=== PATIENT | female | born 1970 | race Caucasian/White ===

== ENCOUNTER 2017-05-28 08:58 | Emergency (ER) | payer SELFPAY ==
[~2017-05-28] VITALS: Ht 165.1 cm; Wt 72.0 kg
[~2017-05-28 08:58] MED LIST: ALBU6.7H INH; CARB200 PO; IBUP800 PO; LEVE250 PO; LIDO5DIS35 TD; METO5TAB PO; NAPR-729 PO; OMEP40CA2 PO; PREG75 PO; SUMA6P SQ; VIST25CA PO
[2017-05-28 08:59] VITALS: BP 119/89; PULSE 86; RESP 18; TEMP 98.4; O2SAT 100
--- NOTE | 2017-05-28 09:34 | PD ---
HPI Chief Complaint: Musculoskeletal Complaint Time Seen by Provider: 09:25 Travel History International Travel<30 days: No Contact w/Intl Traveler<30days: No Traveled to known affect area: No History of Present Illness HPI The patient is a 46-year-old female who presents emergency department for muscle spasms and cramps. The patient is a 59 history of cramping in the calves bilaterally that extends into the toes and hands bilaterally. She also complains of muscle spasms to the right side of the neck and over the right trapezius. Symptoms have been ongoing for 6 days, she's been taking over-the- counter potassium supplementation without any alleviation of her symptoms. The patient has been drinking fluids without difficulty and denies any known history of electrolyte disorders or parathyroid disorders. She does not currently have a primary physician. Symptoms are mild to moderate without any alleviating or exacerbating factors. PFSH Past Medical History Asthma: Yes Bipolar Disorder: Yes Anxiety: Yes Cerebrovascular Accident: Yes (2007 NO DEFICITS) Diminished Hearing: No Gastrointestinal Disorders: Yes (COLITIS) GERD: Yes Gout: Yes Headaches: Yes Kidney Stones: No Migraines: Yes Seizures: Yes : 5 Para: 4 Miscarriage: 1 Ectopic : Yes Tubal Ligation: Yes (1999) Past Surgical History Cholecystectomy: Yes (2010) Hysterectomy: Yes Tonsillectomy: Yes Other Surgery: Yes (RIGHT HAND SURG, BLOOD CLOT REMOVED FROM RIGHT WRIST) Social History Alcohol Use: No (DENIES) Tobacco Use: No (quit 4 months ago ) Substance Use: No (DENIES) Allergies-Medications (Allergen,Severity, Reaction): Coded Allergies: Celexa (Verified Allergy, Severe, SUICIDAL THOUGHTS, 05/28/17) Haldol (Verified Allergy, Severe, JAW SWELLING, 05/28/17) Neurontin (Verified Allergy, Severe, HIVES, dystonic reaction, 05/28/17) Penicillin (Verified Allergy, Severe, Anaphylaxis, 05/28/17) Zoloft (Verified Adverse Reaction, Severe, SUIICIDAL THOUGHTS, 05/28/17) Zyprexa (Verified Adverse Reaction, Severe, SUIICIDAL THOUGHTS, 05/28/17) Reported Meds & Prescriptions Reported Meds & Active Scripts Active No Active Prescriptions or Reported Medications Review of Systems Except as stated in HPI: all other systems reviewed are Neg General / Constitutional: No: Fever HENT: No: Lightheadedness Cardiovascular: No: Chest Pain or Discomfort Respiratory: No: Shortness of Breath Gastrointestinal: No: Nausea, Vomiting Genitourinary: No: Decreased Urinary Output Musculoskeletal: Positive: Cramping Neurologic: Positive: Paresthesia, Sensory Disturbance Physical Exam Narrative GENERAL: Awake, alert, nontoxic-appearing 26-year-old female who appears her stated age and is in no acute respiratory distress. SKIN: Focused skin assessment warm/dry. HEAD: Atraumatic. Normocephalic. EYES: Pupils equal and round. No scleral icterus. No injection or drainage. ENT: No nasal bleeding or discharge. Mucous membranes pink and moist. NECK: Trachea midline. No JVD. Mild tenderness of the right paravertebral muscle in the right trapezius. CARDIOVASCULAR: Regular rate and rhythm. No murmur appreciated. RESPIRATORY: No accessory muscle use. Clear to auscultation. Breath sounds equal bilaterally. GASTROINTESTINAL: Abdomen soft, non-tender, nondistended. MUSCULOSKELETAL: No obvious deformities. No clubbing. No cyanosis. No edema. No obvious fasciculations. NEUROLOGICAL: Awake and alert. No obvious cranial nerve deficits. Motor grossly within normal limits. Normal speech. PSYCHIATRIC: Appropriate mood and affect; insight and judgment normal. Data Data Last Documented VS Vital Signs Date Time Temp Pulse Resp B/P Pulse Ox O2 Delivery O2 Flow Rate FiO2 05/28/17 11:12 68 16 128/68 99 05/28/17 08:59 98.4 Room Air Orders Complete Blood Count With Diff (05/28/17 09:31) Comprehensive Metabolic Panel (05/28/17 09:31) Creatine Kinase (Cpk) (05/28/17 09:31) Magnesium (Mg) (05/28/17 09:31) Sodium Chlor 0.9% 1000 Ml Inj (Ns 1000 M (05/28/17 09:45) Labs Laboratory Tests Test 05/28/17 09:40 White Blood Count 7.3 TH/MM3 Red Blood Count 5.11 MIL/MM3 Hemoglobin 13.0 GM/DL Hematocrit 41.1 % Mean Corpuscular Volume 80.4 FL Mean Corpuscular Hemoglobin 25.4 PG Mean Corpuscular Hemoglobin 31.7 % Concent Red Cell Distribution Width 15.7 % Platelet Count 197 TH/MM3 Mean Platelet Volume 9.4 FL Neutrophils (%) (Auto) 62.6 % Lymphocytes (%) (Auto) 29.6 % Monocytes (%) (Auto) 5.9 % Eosinophils (%) (Auto) 1.1 % Basophils (%) (Auto) 0.8 % Neutrophils # (Auto) 4.6 TH/MM3 Lymphocytes # (Auto) 2.2 TH/MM3 Monocytes # (Auto) 0.4 TH/MM3 Eosinophils # (Auto) 0.1 TH/MM3 Basophils # (Auto) 0.1 TH/MM3 CBC Comment DIFF FINAL Differential Comment Sodium Level 137 MEQ/L Potassium Level 4.0 MEQ/L Chloride Level 103 MEQ/L Carbon Dioxide Level 26.4 MEQ/L Anion Gap 8 MEQ/L Blood Urea Nitrogen 18 MG/DL Creatinine 0.87 MG/DL Estimat Glomerular Filtration 70 ML/MIN Rate Random Glucose 90 MG/DL Calcium Level 10.6 MG/DL Magnesium Level 1.9 MG/DL Total Bilirubin 0.3 MG/DL Aspartate Amino Transf 23 U/L (AST/SGOT) Alanine Aminotransferase 27 U/L (ALT/SGPT) Alkaline Phosphatase 115 U/L Total Creatine Kinase 119 U/L Total Protein 8.7 GM/DL Albumin 4.5 GM/DL MDM Medical Decision Making Medical Screen Exam Complete: Yes Emergency Medical Condition: Yes Medical Record Reviewed: Yes Interpretation(s) Laboratory Tests Test 05/28/17 09:40 White Blood Count 7.3 TH/MM3 Red Blood Count 5.11 MIL/MM3 Hemoglobin 13.0 GM/DL Hematocrit 41.1 % Mean Corpuscular Volume 80.4 FL Mean Corpuscular Hemoglobin 25.4 PG Mean Corpuscular Hemoglobin 31.7 % Concent Red Cell Distribution Width 15.7 % Platelet Count 197 TH/MM3 Mean Platelet Volume 9.4 FL Neutrophils (%) (Auto) 62.6 % Lymphocytes (%) (Auto) 29.6 % Monocytes (%) (Auto) 5.9 % Eosinophils (%) (Auto) 1.1 % Basophils (%) (Auto) 0.8 % Neutrophils # (Auto) 4.6 TH/MM3 Lymphocytes # (Auto) 2.2 TH/MM3 Monocytes # (Auto) 0.4 TH/MM3 Eosinophils # (Auto) 0.1 TH/MM3 Basophils # (Auto) 0.1 TH/MM3 CBC Comment DIFF FINAL Differential Comment Sodium Level 137 MEQ/L Potassium Level 4.0 MEQ/L Chloride Level 103 MEQ/L Carbon Dioxide Level 26.4 MEQ/L Anion Gap 8 MEQ/L Blood Urea Nitrogen 18 MG/DL Creatinine 0.87 MG/DL Estimat Glomerular Filtration 70 ML/MIN Rate Random Glucose 90 MG/DL Calcium Level 10.6 MG/DL Magnesium Level 1.9 MG/DL Total Bilirubin 0.3 MG/DL Aspartate Amino Transf 23 U/L (AST/SGOT) Alanine Aminotransferase 27 U/L (ALT/SGPT) Alkaline Phosphatase 115 U/L Total Creatine Kinase 119 U/L Total Protein 8.7 GM/DL Albumin 4.5 GM/DL Differential Diagnosis Differential diagnoses includes hypokalemia, hyperkalemia, hypocalcemia, hypercalcemia, hypomagnesemia, dehydration, restless leg syndrome. Narrative Course IV was established, labs are drawn and sent, and the patient was placed on cardiac telemetry monitoring and continuous pulse oximetry monitoring. The patient was administered 1 L of IV fluids. The patient's potassium is normal, calcium is mildly elevated at 10.6. The patient was reevaluated at 11:39 AM, her symptoms had improved. The patient be discharged home as I am as needed, advised to take it at night as needed for sleep, is advised to follow-up with a primary physician if cramps persist. Diagnosis Primary Impression: Muscle spasms of neck Additional Impression: Cramps, extremity Patient Instructions: General Instructions Additional Instructions: Medications as directed. Follow-up with your primary physician. Work excuse for today. No driving or drinking on Valium. Return if symptoms worsen or progress. Med/Other Pt SpecificInfo: Prescription(s) given Scripts Diazepam (Valium)5 Mg Tab5 Mg PO TID PRN (SPASM) #15 TAB Ref 0 Prov:Andreas Mora MD 05/28/17 Disposition: DISCHARGE HOME Condition: Stable Andreas Mora MD May 28, 2017 09:34
[2017-05-28] MEDS ORDERED: SODIUM CHLOR 0.9% 1000 ML INJ 1,000 ML IV ONE (09:45)
[2017-05-28 09:49] LABS: AUTOMATED NEUTROPHIL # 4.6 TH/MM3 (1.8-7.7); BASOPHIL # 0.1 TH/MM3 (0-0.2); BASOPHIL % 0.8 % (0.0-2.0); EOSINOPHIL # 0.1 TH/MM3 (0-0.4); EOSINOPHIL % 1.1 % (0.0-4.0); HEMATOCRIT 41.1 % (35.0-46.0); HEMO FLAGS DIFF FINAL; LYMPH % 29.6 % (9.0-44.0); LYMPHOCYTE # 2.2 TH/MM3 (1.0-4.8); MEAN CELL VOLUME 80.4 FL (80.0-100.0); MEAN CORPUSCULAR HEMOGLOBIN 25.4 PG (27.0-34.0); MEAN CORPUSCULAR HGB CONC 31.7 % (32.0-36.0); MONO % 5.9 % (0.0-8.0); NEUT % 62.6 % (16.0-70.0); PLATELET COUNT 197 TH/MM3 (150-450); RED BLOOD COUNT 5.11 MIL/MM3 (4.00-5.30); RED CELL DISTRIBUTION WIDTH 15.7 % (11.6-17.2); WHITE BLOOD COUNT 7.3 TH/MM3 (4.0-11.0)
[2017-05-28 10:04] LABS: AST (GOT) 23 U/L (15-37); BICARBONATE 26.4 MEQ/L (21.0-32.0); BLOOD UREA NITROGEN 18 MG/DL (7-18); GLOMERULAR FILTRATION RATE 70 ML/MIN (>89); MAGNESIUM 1.9 MG/DL (1.5-2.5)
[2017-05-28 10:05] LABS: ALT (GPT) 27 U/L (10-53)
[2017-05-28 10:50] LABS: ALKALINE PHOSPHATASE 115 U/L (45-117); ANION GAP 8 MEQ/L (5-15); CHLORIDE 103 MEQ/L (98-107); CREATINE KINASE 119 U/L (26-192); SODIUM (NA) 137 MEQ/L (136-145); TOTAL BILIRUBIN ADULT 0.3 MG/DL (0.2-1.0)
[2017-05-28 11:12] VITALS: BP 128/68; PULSE 68; RESP 16; O2SAT 99
[2017-05-28] MEDS ORDERED: DIAZ5 PO (11:41)
== END 2017-05-28 11:56 | disposition home or self-care (01) ==
LOC: NEPD 08:58
DX: M62.838 Other muscle spasm (principal)
CPT/HCPCS: 80053; 82550; 83735; 85025; 96360; 99284; J7030

== ENCOUNTER 2017-09-11 10:16 | Emergency (ER) | payer SELFPAY ==
[~2017-09-11] VITALS: Ht 165.1 cm; Wt 65.0 kg
[~2017-09-11 10:16] MED LIST changes: -ALBU6.7H INH; -CARB200 PO; +DIAZ5 PO; -IBUP800 PO; -LEVE250 PO; -LIDO5DIS35 TD; -METO5TAB PO; -NAPR-729 PO; -OMEP40CA2 PO; -PREG75 PO; -SUMA6P SQ; -VIST25CA PO
[2017-09-11 10:17] VITALS: BP 116/84; PULSE 92; RESP 20; TEMP 98.7; O2SAT 100
[2017-09-11] MEDS ORDERED: OMEP20TA PO (10:35)
--- NOTE | 2017-09-11 10:41 | PD ---
HPI Chief Complaint: Chest Pain Time Seen by Provider: 10:38 Travel History International Travel<30 days: No Contact w/Intl Traveler<30days: No Traveled to known affect area: No History of Present Illness HPI 47-year-old female patient with history of seizure disorder no longer on seizure medications, presents to the ER today for several days history of palpitations, substernal discomfort, shakiness. She denies a shortness of breath, nausea, vomiting, or any other symptoms. She denies any prior symptoms. She does not know of any exacerbating or relieving factors. Modifying Factors: None Associated Signs & Symptoms: Palpitations, chest discomfort, shakiness Risk Factors: None PFSH Past Medical History Asthma: Yes Bipolar Disorder: Yes Anxiety: Yes Cardiovascular Problems: Yes Cerebrovascular Accident: Yes (2007 NO DEFICITS) Diminished Hearing: No Gastrointestinal Disorders: Yes (COLITIS) GERD: Yes Gout: Yes Headaches: Yes Kidney Stones: No Psychiatric: Yes Migraines: Yes Seizures: Yes ?: Not : 5 Para: 4 Miscarriage: 1 Ectopic : Yes Tubal Ligation: Yes (1999) Past Surgical History Cholecystectomy: Yes (2010) Hysterectomy: Yes Tonsillectomy: Yes Other Surgery: Yes (RIGHT HAND SURG, BLOOD CLOT REMOVED FROM RIGHT WRIST) Social History Alcohol Use: No (DENIES) Tobacco Use: Yes (1 pack per week) Substance Use: No Allergies-Medications (Allergen,Severity, Reaction): Coded Allergies: citalopram (Unverified Allergy, Severe, SUICIDAL THOUGHTS, 09/11/17) gabapentin (Unverified Allergy, Severe, HIVES, dystonic reaction, 09/11/17 ) haloperidol (Unverified Allergy, Severe, JAW SWELLING, 09/11/17) penicillin G (Unverified Allergy, Severe, Anaphylaxis, 09/11/17) olanzapine (Unverified Adverse Reaction, Severe, SUIICIDAL THOUGHTS, 09/11) sertraline (Unverified Adverse Reaction, Severe, SUIICIDAL THOUGHTS, 09/11) Reported Meds & Prescriptions Reported Meds & Active Scripts Active Reported Omeprazole 20 Mg Tab 20 Mg PO BID Review of Systems Except as stated in HPI: all other systems reviewed are Neg Physical Exam Narrative GENERAL: Well-developed middle age white female patient who currently appears very anxious, in moderate distress. Awake and oriented 3. SKIN: Focused skin assessment warm/dry. HEAD: Atraumatic. Normocephalic. EYES: Pupils equal and round. No scleral icterus. No injection or drainage. ENT: No nasal bleeding or discharge. Mucous membranes pink and moist. NECK: Trachea midline. No JVD. CARDIOVASCULAR: Regular rate and rhythm. No murmur appreciated. RESPIRATORY: No accessory muscle use. Clear to auscultation. Breath sounds equal bilaterally. GASTROINTESTINAL: Abdomen soft, non-tender, nondistended. Hepatic and splenic margins not palpable. MUSCULOSKELETAL: No obvious deformities. No clubbing. No cyanosis. No edema. NEUROLOGICAL: Awake and alert. No obvious cranial nerve deficits. Motor grossly within normal limits. Normal speech. PSYCHIATRIC: Appropriate mood and affect; insight and judgment normal. Data Data Last Documented VS Vital Signs Date Time Temp Pulse Resp B/P (MAP) Pulse Ox O2 Delivery O2 Flow Rate FiO2 09/11/17 10:45 100 Room Air 09/11/17 10:45 77 18 09/11/17 10:17 98.7 Orders Orders Electrocardiogram (09/11/17 10:38) Basic Metabolic Panel (Bmp) (09/11/17 10:38) Ckmb (Isoenzyme) Profile (09/11/17 10:38) Complete Blood Count With Diff (09/11/17 10:38) Magnesium (Mg) (09/11/17 10:38) Prothrombin Time / Inr (Pt) (09/11/17 10:38) Act Partial Throm Time (Ptt) (09/11/17 10:38) Troponin I (09/11/17 10:38) Chest, Single Ap (09/11/17 10:38) Ecg Monitoring (09/11/17 10:38) Bilateral Bp Monitoring (09/11/17 10:38) Iv Access Insert/Monitor (09/11/17 10:38) Oximetry (09/11/17 10:38) Oxygen Administration (09/11/17 10:38) Sodium Chloride 0.9% Flush (Ns Flush) (09/11/17 10:45) Lorazepam Inj (Ativan Inj) (09/11/17 10:45) CKMB (09/11/17 10:40) CKMB% (09/11/17 10:40) Labs Laboratory Tests Test 09/11/17 10:40 White Blood Count 6.7 TH/MM3 Red Blood Count 4.54 MIL/MM3 Hemoglobin 12.2 GM/DL Hematocrit 36.7 % Mean Corpuscular Volume 80.8 FL Mean Corpuscular Hemoglobin 26.8 PG Mean Corpuscular Hemoglobin Concent 33.2 % Red Cell Distribution Width 15.7 % Platelet Count 206 TH/MM3 Mean Platelet Volume 9.5 FL Neutrophils (%) (Auto) 65.8 % Lymphocytes (%) (Auto) 28.0 % Monocytes (%) (Auto) 5.2 % Eosinophils (%) (Auto) 0.3 % Basophils (%) (Auto) 0.7 % Neutrophils # (Auto) 4.4 TH/MM3 Lymphocytes # (Auto) 1.9 TH/MM3 Monocytes # (Auto) 0.3 TH/MM3 Eosinophils # (Auto) 0.0 TH/MM3 Basophils # (Auto) 0.0 TH/MM3 CBC Comment DIFF FINAL Differential Comment Prothrombin Time 11.2 SEC Prothromb Time International Ratio 1.0 RATIO Activated Partial Thromboplast Time 24.9 SEC Blood Urea Nitrogen 17 MG/DL Creatinine 0.82 MG/DL Random Glucose 84 MG/DL Calcium Level 9.7 MG/DL Magnesium Level 1.8 MG/DL Sodium Level 141 MEQ/L Potassium Level 3.7 MEQ/L Chloride Level 107 MEQ/L Carbon Dioxide Level 24.6 MEQ/L Anion Gap 9 MEQ/L Estimat Glomerular Filtration Rate 74 ML/MIN Total Creatine Kinase 130 U/L Creatine Kinase MB 0.7 NG/ML Troponin I LESS THAN 0.02 NG/ML MDM Medical Decision Making Medical Screen Exam Complete: Yes Emergency Medical Condition: Yes Medical Record Reviewed: Yes Interpretation(s) Laboratory Tests Test 09/11/17 10:40 Mean Corpuscular Hemoglobin 26.8 PG (27.0-34.0) Estimat Glomerular Filtration Rate 74 ML/MIN (>89) Troponin I LESS THAN 0.02 NG/ML Last 24 hours Impressions Chest X-Ray 09/11/17 1038 Signed Impressions: Service Date/Time: Monday, September 11, 2017 10:51 - CONCLUSION: Minimal left lingular atelectasis. Lungs are otherwise clear. Kahlil Gu MD Differential Diagnosis Anxiety attack versus dysrhythmias versus ACS Narrative Course EKG did not show any signs of dysrhythmias. Lab work did not show any signs of significant metabolic issues. Vital signs are stable in the ER. It appears that she is having an anxiety attack. Patient was given Ativan in the ER. At this point, my plan would be to release the patient with follow-up to primary care doctor. Return for worsening in symptoms as necessary. The plan has been discussed with her and she states understanding. Diagnosis Primary Impression: Anxiety attack Additional Impression: Palpitations Referrals: [facility] Disposition: 01 DISCHARGE HOME Condition: Stable Troy Allred MD Sep 11, 2017 10:41
[2017-09-11 10:45] VITALS: BP 121/90; PULSE 77; RESP 18; O2SAT 100
[2017-09-11] MEDS ORDERED: LORazepam 2 MG/ML VIAL IV PUSH ONE (10:45)
[2017-09-11] MEDS ORDERED: SODIUM CHLORIDE 0.9% FLUSH 10 ML FLUSH IVF PRN (10:45)
--- NOTE | 2017-09-11 10:53 | RADRPT ---
EXAM DATE/TIME: 09/11/2017 10:51 [facility] COMPARISON: No previous studies available for comparison. INDICATIONS : Chest pain and tingling down left side arm. MEDICAL HISTORY : None. SURGICAL HISTORY : Hysterectomy. Cholecystectomy. ENCOUNTER: Initial ACUITY: 1 day PAIN SCORE: 5/10 LOCATION: Bilateral chest FINDINGS: A single view of the chest demonstrates the lungs to be symmetrically aerated without evidence of mas s, infiltrate or effusion. Minimal atelectasis laterally in the left lingular area. The cardiomedias tinal contours are unremarkable. Osseous structures are intact. CONCLUSION: Minimal left lingular atelectasis. Lungs are otherwise clear. Kahlil Gu MD on September 11, 2017 at 10:51 Board Certified Radiologist. This report was verified electronically.
[2017-09-11 11:09] LABS: AUTOMATED NEUTROPHIL # 4.4 TH/MM3 (1.8-7.7); BASOPHIL % 0.7 % (0.0-2.0); EOSINOPHIL % 0.3 % (0.0-4.0); HEMATOCRIT 36.7 % (35.0-46.0); HEMOGLOBIN 12.2 GM/DL (11.6-15.3); LYMPHOCYTE # 1.9 TH/MM3 (1.0-4.8); MEAN CELL VOLUME 80.8 FL (80.0-100.0); MEAN CORPUSCULAR HEMOGLOBIN 26.8 PG (27.0-34.0); MEAN CORPUSCULAR HGB CONC 33.2 % (32.0-36.0); MEAN PLATELET VOLUME 9.5 FL (7.0-11.0); MONO % 5.2 % (0.0-8.0); MONOCYTE # 0.3 TH/MM3 (0-0.9); NEUT % 65.8 % (16.0-70.0); PLATELET COUNT 206 TH/MM3 (150-450); RED BLOOD COUNT 4.54 MIL/MM3 (4.00-5.30); RED CELL DISTRIBUTION WIDTH 15.7 % (11.6-17.2); WHITE BLOOD COUNT 6.7 TH/MM3 (4.0-11.0)
[2017-09-11 11:20] LABS: PROTHROMBIN TIME - PATIENT 11.2 SEC (9.8-11.6)
[2017-09-11 11:41] LABS: BICARBONATE 24.6 MEQ/L (21.0-32.0); BLOOD UREA NITROGEN 17 MG/DL (7-18); CALCIUM 9.7 MG/DL (8.5-10.1); CHLORIDE 107 MEQ/L (98-107); CREATININE 0.82 MG/DL (0.50-1.00); GLOMERULAR FILTRATION RATE 74 ML/MIN (>89); GLUCOSE,RANDOM 84 MG/DL (74-106); MAGNESIUM 1.8 MG/DL (1.5-2.5); SODIUM (NA) 141 MEQ/L (136-145)
[2017-09-11 11:45] LABS: TROPONIN I LESS THAN 0.02 NG/ML (0.02-0.05)
[2017-09-11 12:35] VITALS: BP 102/69
--- NOTE | 2017-09-12 15:01 | EKG ---
Date Performed: 09/11/2017 Time Performed: 10:34:50 PTAGE: 47 years EKG: Sinus rhythm NORMAL ECG INTERPRETATION BASED ON A DEFAULT AGE OF 39 YEARS PREVIOUS TRACING : 12/29/2013 11.34 Compared to prior tracing no significant change DOCTOR: America Ruggiero Interpretating Date/Time 09/12/2017 14:54:38
== END 2017-09-11 12:35 | disposition home or self-care (01) ==
LOC: NEPC 10:16
DX: F41.9 Anxiety disorder, unspecified (principal); R00.2 Palpitations; J98.11 Atelectasis; G40.909 Epilepsy, unspecified, not intractable, without status epilepticus; J45.909 Unspecified asthma, uncomplicated; F31.9 Bipolar disorder, unspecified; K21.9 Gastro-esophageal reflux disease without esophagitis; M10.9 Gout, unspecified; Z86.73 Personal history of transient ischemic attack (TIA), and cerebral infarction without residual deficits
CPT/HCPCS: 71010; 80048; 82550; 82552; 83735; 84484; 85025; 85610; 85730; 93005; 96374; 99285; J2060

== ENCOUNTER 2017-09-18 09:18 | Observation (INO) | payer SELFPAY ==
[~2017-09-18] VITALS: Ht 165.1 cm; Wt 65.0 kg
[2017-09-18] VITALS (10 sets, daily range): BP systolic 106–123; BP diastolic 59–74; PULSE 55–73; RESP 16–19; TEMP 98–98.7; O2SAT 98–100
[~2017-09-18 09:18] MED LIST changes: -DIAZ5 PO; +OMEP20TA PO
--- NOTE | 2017-09-18 09:59 | PD ---
HPI Chief Complaint: Chest Pain Time Seen by Provider: 09:50 Travel History International Travel<30 days: No Contact w/Intl Traveler<30days: No Traveled to known affect area: No History of Present Illness HPI This is a 47-year-old female with history of seizures, hyperlipidemia, tobacco use presents for evaluation of chest pain. Symptoms started 1.5 weeks ago. She describes a sharp substernal chest pain that radiates in the back and is worse with movement and deep inspiration. She was seen in September 11 for evaluation of this pain. Symptoms have worsened since then which prompted evaluation. Denies shortness of breath, nausea or vomiting, recent travel, recent surgery, abdominal pain, cough or congestion. She has no other complaints at this time. PFSH Past Medical History Asthma: Yes Bipolar Disorder: Yes Anxiety: Yes Cardiovascular Problems: Yes Cerebrovascular Accident: Yes Diminished Hearing: No Gastrointestinal Disorders: Yes (COLITIS) GERD: Yes Gout: Yes Headaches: Yes Kidney Stones: No Psychiatric: Yes Migraines: Yes Seizures: Yes ?: Not : 5 Para: 4 Miscarriage: 1 Ectopic : Yes Tubal Ligation: Yes (1999) Past Surgical History Cholecystectomy: Yes (2010) Hysterectomy: Yes Tonsillectomy: Yes Other Surgery: Yes (RIGHT HAND SURG, BLOOD CLOT REMOVED FROM RIGHT WRIST) Social History Alcohol Use: No (DENIES) Tobacco Use: Yes (1 pack per week) Substance Use: No Allergies-Medications (Allergen,Severity, Reaction): Coded Allergies: citalopram (Unverified Allergy, Severe, SUICIDAL THOUGHTS, 09/18/17) gabapentin (Unverified Allergy, Severe, HIVES, dystonic reaction, 09/18/17) haloperidol (Unverified Allergy, Severe, JAW SWELLING, 09/18/17) penicillin G (Unverified Allergy, Severe, Anaphylaxis, 09/18/17) olanzapine (Unverified Adverse Reaction, Severe, SUIICIDAL THOUGHTS, ) sertraline (Unverified Adverse Reaction, Severe, SUIICIDAL THOUGHTS, ) Reported Meds & Prescriptions Reported Meds & Active Scripts Active Reported Omeprazole 20 Mg Tab 20 Mg PO BID Review of Systems Except as stated in HPI: all other systems reviewed are Neg Physical Exam Narrative GENERAL: This is a well-developed well-nourished female who appears anxious on initial examination. SKIN: Warm and dry. HEAD: Atraumatic. Normocephalic. EYES: Pupils equal and round. No scleral icterus. No injection or drainage. ENT: No nasal bleeding or discharge. Mucous membranes pink and moist. NECK: Trachea midline. No JVD. CARDIOVASCULAR: Regular rate and rhythm. No murmur appreciated. RESPIRATORY: No accessory muscle use. Clear to auscultation. Breath sounds equal bilaterally. GASTROINTESTINAL: Abdomen soft, non-tender, nondistended. Hepatic and splenic margins not palpable. MUSCULOSKELETAL: No obvious deformities. No clubbing. No cyanosis. No edema. Slight tenderness to palpation to the mid chest region. NEUROLOGICAL: Awake and alert. No obvious cranial nerve deficits. Motor grossly within normal limits. Normal speech. PSYCHIATRIC: Appropriate mood and affect; insight and judgment normal. Data Data Last Documented VS Vital Signs Date Time Temp Pulse Resp B/P (MAP) Pulse Ox O2 Delivery O2 Flow Rate FiO2 09/18/17 12:30 64 18 123/74 (90) 98 Room Air 09/18/17 09:19 98.7 Orders Orders Electrocardiogram (09/18/17 09:52) Basic Metabolic Panel (Bmp) (09/18/17 09:52) Ckmb (Isoenzyme) Profile (09/18/17 09:52) Complete Blood Count With Diff (09/18/17 09:52) D-Dimer (09/18/17 09:52) Magnesium (Mg) (09/18/17 09:52) Prothrombin Time / Inr (Pt) (09/18/17 09:52) Act Partial Throm Time (Ptt) (09/18/17 09:52) Troponin I (09/18/17 09:52) Chest, Single Ap (09/18/17 09:52) Ecg Monitoring (09/18/17 09:52) Bilateral Bp Monitoring (09/18/17 09:52) Iv Access Insert/Monitor (09/18/17 09:52) Oximetry (09/18/17 09:52) Oxygen Administration (09/18/17 09:52) Aspirin Chew (Aspirin Chew) (09/18/17 10:00) Morphine Inj (Morphine Inj) (09/18/17 10:00) Sodium Chloride 0.9% Flush (Ns Flush) (09/18/17 10:00) Ondansetron Inj (Zofran Inj) (09/18/17 10:45) Nitroglycerin Sl (Nitrostat Sl) (09/18/17 11:30) CKMB (09/18/17 10:30) CKMB% (09/18/17 10:30) Ct Pulmonary Angiogram (09/18/17 11:51) Vascular Access Team Consult/P PRN (09/18/17 12:33) Vascular Poc Ultrasound (09/18/17 ) Iohexol 350 Inj (Omnipaque 350 Inj) (09/18/17 14:03) Admit Order (Ed Use Only) (09/18/17 14:22) Labs Laboratory Tests Test 09/18/17 10:30 White Blood Count 6.9 TH/MM3 Red Blood Count 4.37 MIL/MM3 Hemoglobin 12.0 GM/DL Hematocrit 35.6 % Mean Corpuscular Volume 81.5 FL Mean Corpuscular Hemoglobin 27.4 PG Mean Corpuscular Hemoglobin Concent 33.6 % Red Cell Distribution Width 16.0 % Platelet Count 179 TH/MM3 Mean Platelet Volume 9.9 FL Neutrophils (%) (Auto) 59.0 % Lymphocytes (%) (Auto) 31.5 % Monocytes (%) (Auto) 7.3 % Eosinophils (%) (Auto) 1.2 % Basophils (%) (Auto) 1.0 % Neutrophils # (Auto) 4.1 TH/MM3 Lymphocytes # (Auto) 2.2 TH/MM3 Monocytes # (Auto) 0.5 TH/MM3 Eosinophils # (Auto) 0.1 TH/MM3 Basophils # (Auto) 0.1 TH/MM3 CBC Comment DIFF FINAL Differential Comment Prothrombin Time 11.2 SEC Prothromb Time International Ratio 1.0 RATIO Activated Partial Thromboplast Time 26.7 SEC D-Dimer Quantitative (PE/DVT) 0.63 MG/L FEU Blood Urea Nitrogen 14 MG/DL Creatinine 0.75 MG/DL Random Glucose 92 MG/DL Calcium Level 9.9 MG/DL Magnesium Level 1.9 MG/DL Sodium Level 138 MEQ/L Potassium Level 4.1 MEQ/L Chloride Level 106 MEQ/L Carbon Dioxide Level 23.9 MEQ/L Anion Gap 8 MEQ/L Estimat Glomerular Filtration Rate 82 ML/MIN Total Creatine Kinase 109 U/L Creatine Kinase MB 0.6 NG/ML Troponin I LESS THAN 0.02 NG/ML MDM Medical Decision Making Medical Screen Exam Complete: Yes Emergency Medical Condition: Yes Medical Record Reviewed: Yes Interpretation(s) EKG reveals sinus rhythm Differential Diagnosis Costochondritis, pericarditis, myocarditis, pleurisy, pneumothorax, hemothorax, pericardial effusion, aortic dissection, pulmonary embolism, acute coronary syndrome Narrative Course The patient was placed on ECG monitoring and pulse oximetry. A 12-lead EKG was obtained. The patient was given aspirin, morphine, nitroglycerin. Plan is for lab work, chest x-ray. The patient's lab work has been reviewed. Her d-dimer is mildly elevated and therefore a CT pulmonary angiogram has been ordered. CT pulmonary angiogram reveals CONCLUSION: 1. No evidence for pulmonary embolism. 2. No evidence for infiltrate. 3. Enlargement main pulmonary trunk which can be seen with pulmonary hypertension. At this point in time the plan is to admit the patient into the chest pain center for serial cardiac enzymes and rule out purposes. She is agreeable. Diagnosis Primary Impression: Chest pain Qualified Codes: R07.9 - Chest pain, unspecified Admitting Information Admitting Physician Requests: Terence Fink Sep 18, 2017 09:59
[2017-09-18] MEDS ORDERED: MORPHINE SULFATE 4 MG/ML INJ IV PUSH ONE ×2 (10:00)
[2017-09-18] MEDS ORDERED: ASPIRIN 81 MG CHEW TAB PO ONE ×2 (10:00)
[2017-09-18] MEDS ORDERED: SODIUM CHLORIDE 0.9% FLUSH 10 ML FLUSH IVF PRN ×2 (10:00)
--- NOTE | 2017-09-18 10:28 | RADRPT ---
EXAM DATE/TIME: 09/18/2017 09:53 [facility] COMPARISON: CHEST SINGLE AP, September 11, 2017, 10:51. INDICATIONS : Chest pains. MEDICAL HISTORY : None. SURGICAL HISTORY : Hysterectomy. Cholecystectomy ENCOUNTER: [facility] ACUITY: 1 week PAIN SCORE: 9/10 LOCATION: Bilateral chest FINDINGS: A single view of the chest demonstrates the lungs to be symmetrically aerated without evidence of mas s, infiltrate or effusion. The cardiomediastinal contours are unremarkable. Osseous structures are intact. CONCLUSION: Negative for an acute process. Diego Richter MD FACR on September 18, 2017 at 10:25 Board Certified Radiologist. This report was verified electronically.
[2017-09-18] MEDS ORDERED: ONDANSETRON HCL 4 MG/2 ML VIAL IVP ONE ×2 (10:45)
[2017-09-18 11:38] LABS: AUTOMATED NEUTROPHIL # 4.1 TH/MM3 (1.8-7.7); BASOPHIL # 0.1 TH/MM3 (0-0.2); EOSINOPHIL # 0.1 TH/MM3 (0-0.4); EOSINOPHIL % 1.2 % (0.0-4.0); HEMATOCRIT 35.6 % (35.0-46.0); LYMPH % 31.5 % (9.0-44.0); LYMPHOCYTE # 2.2 TH/MM3 (1.0-4.8); MEAN CELL VOLUME 81.5 FL (80.0-100.0); MEAN CORPUSCULAR HEMOGLOBIN 27.4 PG (27.0-34.0); MEAN CORPUSCULAR HGB CONC 33.6 % (32.0-36.0); MEAN PLATELET VOLUME 9.9 FL (7.0-11.0); MONO % 7.3 % (0.0-8.0); MONOCYTE # 0.5 TH/MM3 (0-0.9); PLATELET COUNT 179 TH/MM3 (150-450); RED BLOOD COUNT 4.37 MIL/MM3 (4.00-5.30); WHITE BLOOD COUNT 6.9 TH/MM3 (4.0-11.0)
[2017-09-18 11:44] LABS: TROPONIN I LESS THAN 0.02 NG/ML (0.02-0.05)
[2017-09-18 11:47] LABS: BICARBONATE 23.9 MEQ/L (21.0-32.0); BLOOD UREA NITROGEN 14 MG/DL (7-18); CALCIUM 9.9 MG/DL (8.5-10.1); CHLORIDE 106 MEQ/L (98-107); CREATININE 0.75 MG/DL (0.50-1.00); GLOMERULAR FILTRATION RATE 82 ML/MIN (>89); GLUCOSE,RANDOM 92 MG/DL (74-106); MAGNESIUM 1.9 MG/DL (1.5-2.5); SODIUM (NA) 138 MEQ/L (136-145)
[2017-09-18 11:49] LABS: PROTHROMBIN TIME - PATIENT 11.2 SEC (9.8-11.6)
[2017-09-18 11:50] LABS: D-DIMER 0.63 MG/L FEU (0.00-0.50)
[2017-09-18] MEDS: NITROGLYCERIN 0.4 MG SL 25 TABS/BTL SL SCH ×4 (12:02→12:10)
[2017-09-18] MEDS ORDERED: IOHEXOL 350 MG/ML 10 ML VIAL (for RAD DIAG) IVCONTRAST ONE ×2 (14:03)
--- NOTE | 2017-09-18 14:09 | RADRPT ---
EXAM DATE/TIME: 09/18/2017 13:48 [facility] COMPARISON: No previous studies available for comparison. INDICATIONS : Chest pain for 1 week IV CONTRAST: 70 cc Omnipaque 350 (iohexol) IV RADIATION DOSE: 8.37 CTDIvol (mGy) MEDICAL HISTORY : Seizures. Cardiovascular disease SURGICAL HISTORY : Hysterectomy. Cholecystectomy. ENCOUNTER: Initial ACUITY: 1 week PAIN SCALE: 8/10 LOCATION: chest TECHNIQUE: Volumetric scanning of the chest was performed using a pulmonary embolism protocol MIP images were re constructed. Using automated exposure control and adjustment of the mA and/or kV according to patien t size, radiation dose was kept as low as reasonably achievable to obtain optimal diagnostic quality images. DICOM format image data is available electronically for review and comparison. Follow-up recommendations for detected pulmonary nodules are based at a minimum on nodule size and pa tient risk factors according to Fleischner Society Guidelines. FINDINGS: PULMONARY ARTERIES: No filling defects are seen in the pulmonary arteries through the segmental level. LUNGS: There is no consolidation or pneumothorax . No concerning pulmonary nodule is visualized. PLEURAE: There is no pleural thickening or pleural effusion. MEDIASTINUM: There is good visualization of the great vessels of the middle mediastinum. No evidence of mediastin al or hilar adenopathy/mass. Soft tissue density anterior mediastinum likely residual clivus. Pulmona ry trunk is prominent. MUSCULOSKELETAL: Within normal limits for patient age. MISCELLANEOUS: The visualized upper abdominal organs demonstrate no acute abnormality. CONCLUSION: 1. No evidence for pulmonary embolism. 2. No evidence for infiltrate. 3. Enlargement main pulmonary trunk which can be seen with pulmonary hypertension. Micha Martino MD on September 18, 2017 at 14:06 Board Certified Radiologist. This report was verified electronically.
[2017-09-18] MEDS ORDERED: NITROGLYCERIN 0.4 MG SL 25 TABS/BTL SL PRN ×2 (15:00)
[2017-09-18] MEDS ORDERED: ACETAMINOPHEN 500 MG CPLT PO PRN ×2 (15:00)
[2017-09-18 15:53] LABS: TROPONIN I LESS THAN 0.02 NG/ML (0.02-0.05)
--- NOTE | 2017-09-18 16:58 | HHI.HP ---
HPI Primary Care Physician No Primary Care Physician Chief Complaint Chest pain History of Present Illness 47-year-old female with history of GERD and seizure disorder presents to emergency room for further evaluation of chest pain. Onset 11 days ago. Location substernal characterized as a stabbing pain. Radiation to middle of back. Severity waxes and wanes in intensity, never completely gone. Duration has been constant. Associated symptoms occasionally included shortness of breath. Hurts to take a deep breath and twisting left or right makes pain worse. Particular movements of the neck worsens back pain. Laying flat does not provoke pain. No known precipitating or relieving factors. Took Motrin and Aleve without relief. Denies similar pain in the past. No known injury or recent trauma. Seen in [facility] 8 days ago for similar symptoms. States been told pain was related to anxiety and was discharged. Review of Systems General: No fatigue,weakness, fever, chills, or recent illness. Has been in her general state of health. Currently does not have a PCP. Will have insurance and 45 days and reestablish with a primary care provider at that time. HEENT: No MANLEY CV: Continues to have chest pain as stated above. RESP: No SOB, cough, wheeze, recent upper respiratory infection, or sputum production. No history of asthma. GI: No nausea, vomiting, or bowel changes. Reports external hemorrhoids which occasionally bleed, unchanged and stable. No change in appetite, no unintentional weight gain or weight loss. : No dysuria, urgency, or frequency EXT: Occasional bilateral lower leg dependent edema, no paraesthesias MS: As stated above. No Change in ROM or known injury. NEURO: No seizure disorder since childhood. Last seizure 4 years ago. Has been off seizure medication for "many years." No difficulty with balance, LOC, motor/sensory deficits PSYCH: No anxiety, depression, or situational stress. SKIN: No rashes, no concerning lesions Past Family Social History Allergies: Coded Allergies: citalopram (Unverified Allergy, Severe, SUICIDAL THOUGHTS, 09/18/17) gabapentin (Unverified Allergy, Severe, HIVES, dystonic reaction, 09/18/17) haloperidol (Unverified Allergy, Severe, JAW SWELLING, 09/18/17) penicillin G (Unverified Allergy, Severe, Anaphylaxis, 09/18/17) olanzapine (Unverified Adverse Reaction, Severe, SUIICIDAL THOUGHTS, ) sertraline (Unverified Adverse Reaction, Severe, SUIICIDAL THOUGHTS, ) Past Medical History GERD, seizure disorder (dx as a child) migraines Past Surgical History tubal ligation, hysterectomy, cholecystectomy, tonsillectomy, right hand fixation Reported Medications Reported Meds & Active Scripts Active Reported Omeprazole 20 Mg Tab 20 Mg PO BID Active Ordered Medications Current Medications Medications (Trade) Dose Ordered Sig/Berna Route Start Time Stop Time Status Last Admin (NS Flush) 2 ml UNSCH PRN IVF 09/18/17 10:00 (NS Flush) 2 ml BID IV FLUSH 09/18/17 21:00 (Tylenol) 500 mg Q4H PRN PO 09/18/17 15:00 (Zofran Inj) 4 mg Q6H PRN IV PUSH 09/18/17 15:00 (Nitrostat Sl) 0.4 mg Q5M PRN SL 09/18/17 15:00 (Aspirin) 325 mg DAILY PO 09/19/17 09:00 Family History Mother had heart attack in her mid 40s. Father seizure complications in his 40s. Social History No known hypertension, diabetes, or hyperlipidemia. Current smoker stating 1 pack every 5 days. Rare alcohol use. Denies any illegal drug use. Endorses a active lifestyle. Works as a garcía installing kitchen cabinets. Past cardiac testing None Physical Exam Vital Signs Vital Signs Date Time Temp Pulse Resp B/P (MAP) Pulse Ox O2 Delivery O2 Flow Rate FiO2 09/18/17 16:03 98.2 57 18 108/60 (76) 98 09/18/17 14:58 09/18/17 14:30 67 17 121/74 (90) 98 Room Air 09/18/17 12:30 64 18 123/74 (90) 98 Room Air 09/18/17 10:37 64 19 115/64 (81) 99 Room Air 09/18/17 10:37 Room Air 09/18/17 10:36 100 Room Air 09/18/17 10:36 119/59 (79) 115/64 (81) 09/18/17 09:19 98.7 73 16 120/71 (87) 98 Room Air Physical Exam GENERAL: Alert WN, WD, NAD, mild anxious, pleasant female HEAD: NC, AT NECK: Supple, no masses, trachea midline CV: RRR, without murmur, rub, gallop, no JVD, S1-S2 no S3-S4. RESP: Clear lungs throughout bilateral, no crackles, wheeze, rhonchi, symmetrical chest rise, nonlabored, able to speak in full sentences ABD: Soft, NT, ND, no masses, positive bowel tones EXT: Pulses +24, no dependent edema MS: Normal tone 4 extremities, nontender, no obvious deformities, full range of motion NEURO: CN II through CN XII grossly intact, motor strength 5/5, PSYCH: A+O 3, pleasant affect, appropriate speech, mood, and insight and judgment SKIN: Normal turgor, normal texture, no lesions, no rashes, brisk cap refill, even hair distribution, multiple tattoos Laboratory Laboratory Tests Test 09/18/17 10:30 09/18/17 15:20 White Blood Count 6.9 Red Blood Count 4.37 Hemoglobin 12.0 Hematocrit 35.6 Mean Corpuscular Volume 81.5 Mean Corpuscular Hemoglobin 27.4 Mean Corpuscular Hemoglobin Concent 33.6 Red Cell Distribution Width 16.0 Platelet Count 179 Mean Platelet Volume 9.9 Neutrophils (%) (Auto) 59.0 Lymphocytes (%) (Auto) 31.5 Monocytes (%) (Auto) 7.3 Eosinophils (%) (Auto) 1.2 Basophils (%) (Auto) 1.0 Neutrophils # (Auto) 4.1 Lymphocytes # (Auto) 2.2 Monocytes # (Auto) 0.5 Eosinophils # (Auto) 0.1 Basophils # (Auto) 0.1 CBC Comment DIFF FINAL Differential Comment Prothrombin Time 11.2 Prothromb Time International Ratio 1.0 Activated Partial Thromboplast Time 26.7 D-Dimer Quantitative (PE/DVT) 0.63 Blood Urea Nitrogen 14 Creatinine 0.75 Random Glucose 92 Calcium Level 9.9 Magnesium Level 1.9 Sodium Level 138 Potassium Level 4.1 Chloride Level 106 Carbon Dioxide Level 23.9 Anion Gap 8 Estimat Glomerular Filtration Rate 82 Total Creatine Kinase 109 98 Creatine Kinase MB 0.6 Troponin I LESS THAN 0.02 LESS THAN 0.02 Result Diagram: 09/18/17 1030 09/18/17 1030 Imaging Last Impressions Chest X-Ray 09/18/17 0952 Signed Impressions: Service Date/Time: Monday, September 18, 2017 09:53 - CONCLUSION: Negative for an acute process. Diego Richter MD FACR Course EKG NSR, normal axis, no st t segment changes Caprini VTE Risk Assessment Caprini VTE Risk Assessment: No/Low Risk (score <= 1) Caprini Risk Assessment Model Point Value = 1 Point Value = 2 Point Value = 3 Point Value = 5 Age 41-60 Minor surgery BMI > 25 kg/m2 Swollen legs Varicose veins or History of unexplained or recurrent spontaneous Oral contraceptives or hormone replacement Sepsis (< 1 month) Serious lung disease, including pneumonia (< 1 month) Abnormal pulmonary function Acute myocardial infarction Congestive heart failure (< 1 month) History of inflammatory bowel disease Medical patient at bed rest Age 61-74 Arthroscopic surgery Major open surgery (> 45 min) Laparoscopic surgery (> 45 min) Malignancy Confined to bed (> 72 hours) Immobilizing plaster cast Central venous access Age >= 75 History of VTE Family history of VTE Factor V Leiden Prothrombin [id number] Lupus anticoagulant Anticardiolipin antibodies Elevated serum homocysteine Heparin-induced thrombocytopenia Other congenital or acquired thrombophilia Stroke (< 1 month) Elective arthroplasty Hip, pelvis, or leg fracture Acute spinal cord injury (< 1 month) Prophylaxis Regimen Total Risk Factor Score Risk Level Prophylaxis Regimen 0-1 Low Early ambulation 2 Moderate Order ONE of the following: *Sequential Compression Device (SCD) *Heparin 5000 units SQ BID 3-4 Higher Order ONE of the following medications: *Heparin 5000 units SQ TID *Enoxaparin/Lovenox 40 mg SQ daily (WT < 150 kg, CrCl > 30 mL/min) *Enoxaparin/Lovenox 30 mg SQ daily (WT < 150 kg, CrCl > 10-29 mL/min) *Enoxaparin/Lovenox 30 mg SQ BID (WT < 150 kg, CrCl > 30 mL/min) AND/OR *Sequential Compression Device (SCD) 5 or more Highest Order ONE of the following medications: *Heparin 5000 units SQ TID (Preferred with Epidurals) *Enoxaparin/Lovenox 40 mg SQ daily (WT < 150 kg, CrCl > 30 mL/min) *Enoxaparin/Lovenox 30 mg SQ daily (WT < 150 kg, CrCl > 10-29 mL/min) *Enoxaparin/Lovenox 30 mg SQ BID (WT < 150 kg, CrCl > 30 mL/min) AND *Sequential Compression Device (SCD) Assessment and Plan Assessment and Plan #1 Atypical chest pain-admitted to chest pain center. Rule out with 3 sets of EKG and cardiac enzymes. Will be seen and evaluated by Dr. Jaxson Goldsmith in [place] Reassurance provided discomfort appears to be musculoskeletal in nature. Discussed possible stress testing which will be determined by the magnetic resonance imaging coordinator tomorrow. Agreeable to pain of care. #2 Musculoskeletal pain-Toradol 30mg IV x1 dose #3 Tobacco use-strongly encouraged and stressed importance of tobacco cessation. Instructed to quit smoking. Lola Carvajal Sep 18, 2017 16:58
[2017-09-18] MEDS ORDERED: KETOROLAC TROMETHAMINE 30 MG/ML (IVP) VIAL IV PUSH ONE ×2 (17:45)
[2017-09-18 17:48] LABS: TROPONIN I LESS THAN 0.02 NG/ML (0.02-0.05)
[2017-09-18] MEDS: SODIUM CHLORIDE 0.9% FLUSH 10 ML FLUSH IV FLUSH SCH ×2 (21:31)
[2017-09-18] MEDS: KETOROLAC TROMETHAMINE 30 MG/ML (IVP) VIAL IV PUSH PRN ×2 (23:09)
[2017-09-18] MEDS: ONDANSETRON HCL 4 MG/2 ML VIAL IV PUSH PRN ×2 (23:10)
[2017-09-19 00:40] VITALS: PULSE 60
[2017-09-19 03:30] VITALS: BP 118/69; PULSE 59; RESP 16; TEMP 98.8; O2SAT 100
[2017-09-19 04:15] VITALS: PULSE 81
[2017-09-19] MEDS: KETOROLAC TROMETHAMINE 30 MG/ML (IVP) VIAL IV PUSH PRN ×2 (04:33)
[2017-09-19] MEDS: ONDANSETRON HCL 4 MG/2 ML VIAL IV PUSH PRN ×2 (04:33)
[2017-09-19 08:05] VITALS: BP 123/68; PULSE 56; RESP 20; TEMP 98.3; O2SAT 98
--- NOTE | 2017-09-19 08:42 | RADRPT ---
EXAM DATE/TIME: 09/19/2017 08:18 [facility] COMPARISON: No previous studies available for comparison. INDICATIONS : Back pain. RADIATION DOSE: 33.58 CTDIvol (mGy) ; Combined studies - Thoracic Spine/Lumbar Spine MEDICAL HISTORY : Gastroesophageal reflux disease. Seizures. Colitis. SURGICAL HISTORY : Tonsillectomy. Cholecystectomy.Hysterectomy. ENCOUNTER: Initial ACUITY: 1 week PAIN SCALE: 5/10 LOCATION: back. TECHNIQUE: Volumetric scanning of the thoracic spine was performed. Multiplanar reconstructions in the sagittal , coronal and oblique axial planes were performed. Using automated exposure control and adjustment o f the mA and/or kV according to patient size, radiation dose was kept as low as reasonably achievable to obtain optimal diagnostic quality images. DICOM format image data is available electronically f or review and comparison. FINDINGS: The vertebral bodies of the thoracic spine are in normal alignment without evidence of subluxation. M ild degenerative changes are noted throughout the thoracic spine. Vertebral body height is maintained . No fractures are seen. T1-T2: Normal. T2-T3: The thecal sac has a normal diameter. No evidence of disc bulge or protrusion. T3-T4: The thecal sac has a normal diameter. No evidence of disc bulge or protrusion. T4-T5: The thecal sac has a normal diameter. No evidence of disc bulge or protrusion. T5-T6: The thecal sac has a normal diameter. No evidence of disc bulge or protrusion. T6-T7: The thecal sac has a normal diameter. No evidence of disc bulge or protrusion. T7-T8: The thecal sac has a normal diameter. No evidence of disc bulge or protrusion. T8-T9: The thecal sac has a normal diameter. No evidence of disc bulge or protrusion. T9-T10: The thecal sac has a normal diameter. No evidence of disc bulge or protrusion. T10-T11: The thecal sac has a normal diameter. No evidence of disc bulge or protrusion. T11-T12: The thecal sac has a normal diameter. No evidence of disc bulge or protrusion. T12-L1: The thecal sac has a normal diameter. No evidence of disc bulge or protrusion. CONCLUSION: 1. Mild degenerative changes throughout the thoracic spine. 2. No acute compression fracture or subluxation. Sajan Beasley MD on September 19, 2017 at 8:37 Board Certified Radiologist. This report was verified electronically.
--- NOTE | 2017-09-19 08:53 | RADRPT ---
EXAM DATE/TIME: 09/19/2017 08:18 [facility] COMPARISON: No previous studies available for comparison. INDICATIONS : Lower back pain. RADIATION DOSE: 33.58 CTDIvol (mGy) ; Combined studies - Thoracic Spine/Lumbar Spine MEDICAL HISTORY : Seizures. Gastroesophageal reflux disease. Colitis SURGICAL HISTORY : Cholecystectomy. Hysterectomy.Tonsillectomy. ENCOUNTER: Initial ACUITY: 1 week PAIN SCALE: 6/10 LOCATION: lower back. TECHNIQUE: Volumetric scanning of the lumbar spine was performed. Multiplanar reconstructions in the sagittal, coronal and oblique axial planes were performed. Using automated exposure control and adjustment of the mA and/or kV according to patient size, radiation dose was kept as low as reasonably achievable t o obtain optimal diagnostic quality images. DICOM format image data is available electronically for review and comparison. FINDINGS: The sagittal images demonstrate tiny foci of high density within the right side of the thecal sac at the inferior aspect of the L1 level as well as within the midline posteriorly at the L4-5 level. Thes e foci may represent areas of residual contrast if the patient has had previous myelogram procedure. Clinical correlation is recommended. If no previous contrast has been injected, tiny areas of calcifi cation within the thecal sac should be considered. There is no acute compression fracture or spondylo listhesis. No spondylolysis is noted. Minimal scoliosis of the lumbar spine is noted. T12-L1: The thecal sac has a normal diameter. No evidence of disc bulge or protrusion. The neural foramina are patent bilaterally. L1-L2: The thecal sac has a normal diameter. No evidence of disc bulge or protrusion. The neural foramina are patent bilaterally. L2-L3: The thecal sac has a normal diameter. No evidence of disc bulge or protrusion. The neural foramina are patent bilaterally. L3-L4: The thecal sac has a normal diameter. No evidence of disc bulge or protrusion. The neural foramina are patent bilaterally. Mild facet joint hypertrophy is noted bilaterally. L4-L5: The thecal sac has a normal diameter. No evidence of disc bulge or protrusion. The neural foramina are patent bilaterally. Mild facet joint hypertrophy is noted bilaterally. L5-S1: The thecal sac has a normal diameter. No evidence of disc bulge or protrusion. The neural foramina are patent bilaterally. Mild facet joint hypertrophy is noted bilaterally. CONCLUSION: 1. Mild facet joint hypertrophy bilaterally at L3-4, L4-5, and L5-S1. 2. No acute fracture, spondylolisthesis or spondylolysis. 3. Tiny foci of high density within the right side of the thecal sac at the inferior aspect of the L1 level as well as within the midline posteriorly at the L4-5 level. These foci may represent areas of residual contrast if the patient has had previous myelogram procedure. Clinical correlation is recom mended. If no previous contrast has been injected, tiny areas of calcification within the thecal sac should be considered. Sajan Beasley MD on September 19, 2017 at 8:45 Board Certified Radiologist. This report was verified electronically.
[2017-09-19] MEDS ORDERED: ASPIRIN 325 MG TAB PO SCH ×2 (09:00)
[2017-09-19] MEDS: SODIUM CHLORIDE 0.9% FLUSH 10 ML FLUSH IV FLUSH SCH ×2 (10:33)
--- NOTE | 2017-09-19 10:51 | HHI.DCPOC ---
Discharge Care Plan Diagnosis: (1) Tobacco abuse (2) Musculoskeletal pain (3) Chest pain, atypical Goals to Promote Your Health * To prevent worsening of your condition and complications * To maintain your health at the optimal level Directions to Meet Your Goals Take your medications as prescribed Follow your dietary instruction Follow activity as directed Keep your appointments as scheduled Take your immunizations and boosters as scheduled If your symptoms worsen call your PCP, if no PCP go to Urgent Care Center or Emergency Room Smoking is Dangerous to Your Health. Avoid second hand smoke Call the 24-hour hour crisis hotline for domestic abuse at Javier Bose Sep 19, 2017 10:51
--- NOTE | 2017-09-19 10:51 | HHI.DCPOC ---
Discharge Care Plan Diagnosis: (1) Tobacco abuse (2) Musculoskeletal pain (3) Chest pain, atypical Goals to Promote Your Health * To prevent worsening of your condition and complications * To maintain your health at the optimal level Directions to Meet Your Goals Take your medications as prescribed Follow your dietary instruction Follow activity as directed Keep your appointments as scheduled Take your immunizations and boosters as scheduled If your symptoms worsen call your PCP, if no PCP go to Urgent Care Center or Emergency Room Smoking is Dangerous to Your Health. Avoid second hand smoke Call the 24-hour hour crisis hotline for domestic abuse at Javier Bose Sep 19, 2017 10:51
--- NOTE | 2017-09-19 10:51 | HHI.DCPOC ---
Discharge Care Plan Diagnosis: (1) Tobacco abuse (2) Musculoskeletal pain (3) Chest pain, atypical Goals to Promote Your Health * To prevent worsening of your condition and complications * To maintain your health at the optimal level Directions to Meet Your Goals Take your medications as prescribed Follow your dietary instruction Follow activity as directed Keep your appointments as scheduled Take your immunizations and boosters as scheduled If your symptoms worsen call your PCP, if no PCP go to Urgent Care Center or Emergency Room Smoking is Dangerous to Your Health. Avoid second hand smoke Call the 24-hour hour crisis hotline for domestic abuse at Javier Bose Sep 19, 2017 10:51
[2017-09-19 10:53] VITALS: PULSE 67
--- NOTE | 2017-09-19 13:30 | EKG ---
Date Performed: 09/18/2017 Time Performed: 10:10:45 PTAGE: 47 years EKG: SINUS BRADYCARDIA BORDERLINE ECG Compared to prior tracing no significant change PREVIOUS TRACING : 09/11/2017 10.34 DOCTOR: Alonso Wagner Interpretating Date/Time 09/19/2017 13:27:48
--- NOTE | 2017-09-20 08:15 | EKG ---
Date Performed: 09/18/2017 Time Performed: 16:44:39 PTAGE: 47 years EKG: SINUS BRADYCARDIA BORDERLINE ECG PREVIOUS TRACING : 09/18/2017 15.24 Since previous tracing, no significant change noted DOCTOR: Jaxson Goldsmith Interpretating Date/Time 09/20/2017 08:15:18
--- NOTE | 2017-09-20 08:18 | EKG ---
Date Performed: 09/18/2017 Time Performed: 15:24:50 PTAGE: 47 years EKG: SINUS BRADYCARDIA BORDERLINE ECG PREVIOUS TRACING : 09/18/2017 10.10 Since previous tracing, no significant change noted DOCTOR: Jaxson Goldsmith Interpretating Date/Time 09/20/2017 08:16:31
== END 2017-09-19 11:27 | disposition home or self-care (01) ==
LOC: NEPD 09:18 → NEDA 14:24 → NEPHCDU 15:03
PROVIDERS: ADMIT Internal Medicine Cardiovascular Disease; ATTEND Internal Medicine Cardiovascular Disease
DX: R07.89 Other chest pain (principal); M79.1 Myalgia; E78.5 Hyperlipidemia, unspecified; G40.909 Epilepsy, unspecified, not intractable, without status epilepticus; K21.9 Gastro-esophageal reflux disease without esophagitis; R94.31 Abnormal electrocardiogram [ECG] [EKG]; J45.909 Unspecified asthma, uncomplicated; F31.9 Bipolar disorder, unspecified; F17.210 Nicotine dependence, cigarettes, uncomplicated; M10.9 Gout, unspecified; Z86.73 Personal history of transient ischemic attack (TIA), and cerebral infarction without residual deficits
CPT/HCPCS: 71010; 71275; 72128; 72131; 76937; 80048; 82550; 82552; 83735; 84484; 85025; 85379; 85610; 85652; 85730; 93005; 96374; 96375; 96376; 99285; G0378; J1885; J2270; J2405; Q9967

== ENCOUNTER 2017-10-24 08:51 | Emergency (ER) | payer SELFPAY ==
[~2017-10-24 08:51] MED LIST changes: -OMEP20TA PO; +OMEP20TA93 PO
[2017-10-24 08:52] VITALS: BP 140/78; PULSE 87; RESP 16; TEMP 98.5; O2SAT 99
[2017-10-24] MEDS ORDERED: SODIUM CHLOR 0.9% 1000 ML INJ 1,000 ML IV ONE (09:08)
[2017-10-24] MEDS ORDERED: CYCLOBENZAPRINE HCL 10 MG TAB PO ONE (09:15)
[2017-10-24] MEDS ORDERED: ONDANSETRON HCL 4 MG/2 ML VIAL IVP ONE (09:15)
[2017-10-24] MEDS ORDERED: SODIUM CHLORIDE 0.9% FLUSH 10 ML FLUSH IVF PRN (09:15)
[2017-10-24 09:30] VITALS: O2SAT 98
[2017-10-24 09:33] VITALS: BP 119/79; PULSE 67; RESP 18; O2SAT 98
[2017-10-24 09:53] LABS: AUTOMATED NEUTROPHIL # 4.5 TH/MM3 (1.8-7.7); BASOPHIL # 0.1 TH/MM3 (0-0.2); BASOPHIL % 0.8 % (0.0-2.0); EOSINOPHIL # 0.1 TH/MM3 (0-0.4); EOSINOPHIL % 1.2 % (0.0-4.0); HEMATOCRIT 36.5 % (35.0-46.0); HEMO FLAGS DIFF FINAL; LYMPH % 25.2 % (9.0-44.0); LYMPHOCYTE # 1.7 TH/MM3 (1.0-4.8); MEAN CELL VOLUME 82.8 FL (80.0-100.0); MEAN CORPUSCULAR HEMOGLOBIN 27.1 PG (27.0-34.0); MEAN CORPUSCULAR HGB CONC 32.8 % (32.0-36.0); MONO % 6.4 % (0.0-8.0); NEUT % 66.4 % (16.0-70.0); PLATELET COUNT 185 TH/MM3 (150-450); RED BLOOD COUNT 4.41 MIL/MM3 (4.00-5.30); RED CELL DISTRIBUTION WIDTH 17.1 % (11.6-17.2); WHITE BLOOD COUNT 6.7 TH/MM3 (4.0-11.0)
[2017-10-24 09:53] LABS: BACTERIA, URINE RARE /hpf; BLOOD, URINE NEG (NEG); COMMENT (UR) CULT NOT INDICATED; CULTURE IF INDICATED CULT NOT INDICATED; GLUCOSE,URINE NEG (NEG); KETONE, URINE NEG (NEG); NITRITE,URINE NEG (NEG); PH, URINE 6.5 (5.0-8.5); SQUAMOUS EPITHELIAL CELL URINE 2 /hpf (0-5); URINE COLOR LIGHT-YELLOW (YELLW/STRAW)
[2017-10-24 09:55] LABS: APTT (PATIENT) 25.7 SEC (24.3-30.1); INTERNATIONAL NORMALIZED RATIO 1.1 RATIO; PROTHROMBIN TIME - PATIENT 11.2 SEC (9.8-11.6)
[2017-10-24 10:12] LABS: ANION GAP 7 MEQ/L (5-15); AST (GOT) 13 U/L (15-37); BICARBONATE 25.3 MEQ/L (21.0-32.0); BLOOD UREA NITROGEN 16 MG/DL (7-18); CHLORIDE 109 MEQ/L (98-107); GLOMERULAR FILTRATION RATE 73 ML/MIN (>89); POTASSIUM 3.8 MEQ/L (3.5-5.1); SODIUM (NA) 141 MEQ/L (136-145)
[2017-10-24] MEDS ORDERED: KETOROLAC TROMETHAMINE 30 MG/ML (IVP) VIAL IV PUSH ONE (10:15)
[2017-10-24 10:18] LABS: ALKALINE PHOSPHATASE 89 U/L (45-117); ALT (GPT) 16 U/L (10-53); CREATINE KINASE 85 U/L (26-192); TOTAL BILIRUBIN ADULT 0.5 MG/DL (0.2-1.0)
--- NOTE | 2017-10-24 10:18 | RADRPT ---
EXAM DATE/TIME: 10/24/2017 09:40 [facility] COMPARISON: CT BRAIN W/O CONTRAST, December 29, 2013, 12:08. INDICATIONS : Dizziness with nausea. RADIATION DOSE: 27.86 CTDIvol (mGy) MEDICAL HISTORY : Cerebrovascular disease. Seizures. SURGICAL HISTORY : Hysterectomy. Tubal ligation.Cholecystectomy. ENCOUNTER: Initial ACUITY: 4 - 6 days PAIN SCALE: 4/10 LOCATION: Bilateral cranial TECHNIQUE: Multiple contiguous axial images were obtained of the head. Using automated exposure control and adj ustment of the mA and/or kV according to patient size, radiation dose was kept as low as reasonably a chievable to obtain optimal diagnostic quality images. DICOM format image data is available electro nically for review and comparison. FINDINGS: CEREBRUM: The ventricles are normal for age. No evidence of midline shift, mass lesion, hemorrhage or acute in farction. No extra-axial fluid collections are seen. POSTERIOR FOSSA: The cerebellum and brainstem are intact. The 4th ventricle is midline. The cerebellopontine angle i s unremarkable. EXTRACRANIAL: The visualized portion of the orbits is intact. SKULL: The calvaria is intact. No evidence of skull fracture. CONCLUSION: 1. No acute intracranial abnormality. Loc Smith MD on October 24, 2017 at 10:16 Board Certified Radiologist. This report was verified electronically.
--- NOTE | 2017-10-24 10:21 | PD ---
HPI Chief Complaint: Back/ Neck Pain or Injury Time Seen by Provider: 09:01 Travel History International Travel<30 days: No Contact w/Intl Traveler<30days: No Traveled to known affect area: No History of Present Illness HPI Patient is a 47-year-old female who comes in complaining of pain all over. She says this has been going on since Saturday. She says that she thinks she had a seizure, because this is usually what happens after she has a seizure. She just worse pain is in her neck and at the base of her skull. She says she thinks she had another seizure the other night because she wet the bed. She never had any witnessed seizure activity. She denies any head trauma. She says she took a naproxen the other day for the pain, but this did not help. She says she has felt like she has been warm, but she has not taken her temperature. She denies nausea or vomiting. She denies cough or cold symptoms. PFSH Past Medical History Asthma: Yes Bipolar Disorder: Yes Anxiety: Yes Heart Rhythm Problems: No Cardiac Catheterization: No Cardiovascular Problems: No High Cholesterol: Yes Congestive Heart Failure: No Cerebrovascular Accident: Yes (2008) Diabetes: No Diminished Hearing: No Gastrointestinal Disorders: Yes (COLITIS) GERD: Yes Gout: Yes Headaches: Yes Kidney Stones: No Psychiatric: Yes Migraines: Yes Seizures: Yes ?: Not Menopausal: Yes : 5 Para: 4 Miscarriage: 1 Ectopic : Yes Tubal Ligation: Yes (1999) Past Surgical History Cholecystectomy: Yes (2010) Coronary Artery Bypass Graft: No Hysterectomy: Yes (2014) Tonsillectomy: Yes Other Surgery: Yes (RIGHT HAND SURG, BLOOD CLOT REMOVED FROM RIGHT WRIST) Family History Family Myocardial Infarction: Yes Social History Alcohol Use: No (DENIES) Tobacco Use: Yes (1 pack per week) Substance Use: No Allergies-Medications (Allergen,Severity, Reaction): Coded Allergies: citalopram (Unverified Allergy, Severe, SUICIDAL THOUGHTS, 10/24/17) gabapentin (Unverified Allergy, Severe, HIVES, dystonic reaction, 10/24/17) haloperidol (Unverified Allergy, Severe, JAW SWELLING, 10/24/17) penicillin G (Unverified Allergy, Severe, Anaphylaxis, 10/24/17) olanzapine (Unverified Adverse Reaction, Severe, SUIICIDAL THOUGHTS, ) sertraline (Unverified Adverse Reaction, Severe, SUIICIDAL THOUGHTS, ) Reported Meds & Prescriptions Reported Meds & Active Scripts Active Reported Omeprazole 20 Mg Tab 20 Mg PO BID Review of Systems Except as stated in HPI: all other systems reviewed are Neg General / Constitutional: No: Chills Eyes: No: Blurred Vision HENT: Positive: Headaches, No: Lightheadedness, Congestion Cardiovascular: No: Chest Pain or Discomfort Respiratory: No: Cough, Shortness of Breath Gastrointestinal: Positive: Nausea, No: Vomiting, Abdominal Pain Genitourinary: No: Dysuria Musculoskeletal: Positive: Myalgias, No: Weakness, Edema Skin: No Rash, No Change in Pigmentation Neurologic: No: Weakness, Dizziness Physical Exam Narrative GENERAL: Awake and alert, in no acute distress. SKIN: Focused skin assessment warm/dry. HEAD: Atraumatic. Normocephalic. EYES: Pupils equal and round and reactive. No scleral icterus. Extraocular movements intact. ENT: Mucous membranes pink and moist. NECK: Trachea midline. No JVD. No cervical spine tenderness. CARDIOVASCULAR: Regular rate and rhythm. No murmur appreciated. RESPIRATORY: No accessory muscle use. Clear to auscultation. Breath sounds equal bilaterally. GASTROINTESTINAL: Abdomen soft, non-tender, nondistended. MUSCULOSKELETAL: No obvious deformities. No clubbing. No cyanosis. No edema. No tenderness to the thoracic or lumbar spine. NEUROLOGICAL: Awake and alert. No obvious cranial nerve deficits. Motor grossly within normal limits. Normal speech. PSYCHIATRIC: Appropriate mood and affect; insight and judgment normal. Data Data Last Documented VS Vital Signs Date Time Temp Pulse Resp B/P (MAP) Pulse Ox O2 Delivery O2 Flow Rate FiO2 10/24/17 09:33 67 18 119/79 (92) 98 Room Air 10/24/17 08:52 98.5 Orders Orders Electrocardiogram (10/24/17 09:08) Complete Blood Count With Diff (10/24/17 09:08) Comprehensive Metabolic Panel (10/24/17 09:08) Troponin I (10/24/17 09:08) Act Partial Throm Time (Ptt) (10/24/17 09:08) Prothrombin Time / Inr (Pt) (10/24/17 09:08) Urinalysis - C+S If Indicated (10/24/17 09:08) Ct Brain W/O Iv Contrast(Rout) (10/24/17 09:08) Ct Cerv Spine W/O Contrast (10/24/17 09:08) Ecg Monitoring (10/24/17 09:08) Iv Access Insert/Monitor (10/24/17 09:08) Oximetry (10/24/17 09:08) Ondansetron Inj (Zofran Inj) (10/24/17 09:15) Sodium Chloride 0.9% Flush (Ns Flush) (10/24/17 09:15) Sodium Chlor 0.9% 1000 Ml Inj (Ns 1000 M (10/24/17 09:08) Creatine Kinase (Cpk) (10/24/17 09:08) Influenzae A/B Antigen (10/24/17 09:08) Cyclobenzaprine (Flexeril) (10/24/17 09:15) Ketorolac Inj (Toradol Inj) (10/24/17 10:15) Labs Laboratory Tests Test 10/24/17 08:21 10/24/17 09:23 Urine Color LIGHT-YELLOW Urine Turbidity CLEAR Urine pH 6.5 Urine Specific [place] 1.003 Urine Protein NEG mg/dL Urine Glucose (UA) NEG mg/dL Urine Ketones NEG mg/dL Urine Occult Blood NEG Urine Nitrite NEG Urine Bilirubin NEG Urine Urobilinogen LESS THAN 2.0 MG/DL Urine Leukocyte Esterase NEG Urine RBC LESS THAN 1 /hpf Urine WBC LESS THAN 1 /hpf Urine Squamous Epithelial Cells 2 /hpf Urine Bacteria RARE /hpf Microscopic Urinalysis Comment CULT NOT INDICATED White Blood Count 6.7 TH/MM3 Red Blood Count 4.41 MIL/MM3 Hemoglobin 12.0 GM/DL Hematocrit 36.5 % Mean Corpuscular Volume 82.8 FL Mean Corpuscular Hemoglobin 27.1 PG Mean Corpuscular Hemoglobin Concent 32.8 % Red Cell Distribution Width 17.1 % Platelet Count 185 TH/MM3 Mean Platelet Volume 9.2 FL Neutrophils (%) (Auto) 66.4 % Lymphocytes (%) (Auto) 25.2 % Monocytes (%) (Auto) 6.4 % Eosinophils (%) (Auto) 1.2 % Basophils (%) (Auto) 0.8 % Neutrophils # (Auto) 4.5 TH/MM3 Lymphocytes # (Auto) 1.7 TH/MM3 Monocytes # (Auto) 0.4 TH/MM3 Eosinophils # (Auto) 0.1 TH/MM3 Basophils # (Auto) 0.1 TH/MM3 CBC Comment DIFF FINAL Differential Comment Prothrombin Time 11.2 SEC Prothromb Time International Ratio 1.1 RATIO Activated Partial Thromboplast Time 25.7 SEC Blood Urea Nitrogen 16 MG/DL Creatinine 0.83 MG/DL Random Glucose 85 MG/DL Total Protein 7.4 GM/DL Albumin 4.4 GM/DL Calcium Level 9.5 MG/DL Alkaline Phosphatase 89 U/L Aspartate Amino Transf (AST/SGOT) 13 U/L Alanine Aminotransferase (ALT/SGPT) 16 U/L Total Bilirubin 0.5 MG/DL Sodium Level 141 MEQ/L Potassium Level 3.8 MEQ/L Chloride Level 109 MEQ/L Carbon Dioxide Level 25.3 MEQ/L Anion Gap 7 MEQ/L Estimat Glomerular Filtration Rate 73 ML/MIN Total Creatine Kinase 85 U/L Troponin I LESS THAN 0.02 NG/ML MDM Medical Decision Making Medical Screen Exam Complete: Yes Emergency Medical Condition: Yes Medical Record Reviewed: Yes Interpretation(s) ECG shows normal sinus rhythm at 65, no ST elevation or depression, normal intervals Differential Diagnosis Muscle strain versus seizure versus influenza Narrative Course Patient is a 47-year-old female comes in complaining of muscle pain. Exam shows no neurologic abnormalities. IV established, labs sent. Labs show no acute abnormalities. CT head and C-spine performed show no acute abnormalities. Patient given IV fluids, Flexeril, Toradol. She is requesting a work note. She 'll be discharged with prescription for Flexeril. Advised to continue Tylenol or ibuprofen as needed for pain. Advised follow-up with a primary care doctor. Advised to return to the ED as needed for any worsening symptoms. Diagnosis Primary Impression: Muscle spasms of neck Referrals: [facility] call for appointment Patient Instructions: General Instructions, Muscle Spasm (ED) Additional Instructions: Take Tylenol or ibuprofen as needed for pain. Take Flexeril as needed for muscle spasm. Follow-up with a primary care doctor. Return to the ED as needed for any worsening symptoms. Scripts Cyclobenzaprine (Flexeril) 10 Mg Tab 10 MG PO TID for Muscle Spasm, #15 TAB 0 Refills Prov: Nicci Denise MD 10/24/17 Disposition: 01 DISCHARGE HOME Condition: Stable Nicci Denise MD Oct 24, 2017 10:21
--- NOTE | 2017-10-24 10:33 | RADRPT ---
EXAM DATE/TIME: 10/24/2017 09:40 [facility] COMPARISON: No previous studies available for comparison. INDICATIONS : Increasing seizures. Neck pain. RADIATION DOSE: 17.16 CTDIvol (mGy) MEDICAL HISTORY : Cerebrovascular disease. Seizures. SURGICAL HISTORY : Hysterectomy. Tubal ligation.Cholecystectomy. ENCOUNTER: Initial ACUITY: 4 - 6 days PAIN SCALE: 5/10 LOCATION: Bilateral neck TECHNIQUE: Volumetric scanning of the cervical spine was performed. Multiplanar reconstructions in the sagittal, coronal and oblique axial planes were performed. Using automated exposure control and adjustment o f the mA and/or kV according to patient size, radiation dose was kept as low as reasonably achievable to obtain optimal diagnostic quality images. DICOM format image data is available electronically f or review and comparison. FINDINGS: There is normal sagittal spine alignment of the cervical spine. No anterolisthesis or retrolisthesis is present. The atlantoaxial relationship is within normal limits. There is no prevertebral soft tiss ue swelling present. No fracture or dislocation is identified. No disc herniation is visualized in th e upper cervical spine. There is facet arthrosis on the right at C2-C3. A hypodense 8mm left thyroid nodule is present. Otherwise, the visualized portions of the posterior f evens, paraspinous soft tissues, and upper lung zones demonstrate no acute abnormality. CONCLUSION: 1. No acute cervical spine abnormality is identified. There is right facet arthrosis at C2-C3. 2. There is an incidental 8mm left thyroid nodule. Jesús Woodson MD on October 24, 2017 at 10:28 Board Certified Radiologist. This report was verified electronically.
[2017-10-24] MEDS ORDERED: CYCL10TA PO (10:59)
[2017-10-24 11:19] VITALS: BP 114/72
--- NOTE | 2017-10-24 16:28 | EKG ---
Date Performed: 10/24/2017 Time Performed: 09:31:33 PTAGE: 47 years EKG: Sinus rhythm NORMAL ECG Since PREVIOUS TRACING , no significant change noted PREVIOUS TRACIN09/18/2017 16.44 DOCTOR: Iain Yip Interpretating Date/Time 10/24/2017 16:26:15
== END 2017-10-24 11:21 | disposition home or self-care (01) ==
LOC: NEPE 08:51
DX: M62.838 Other muscle spasm (principal); E78.00 Pure hypercholesterolemia, unspecified; K21.9 Gastro-esophageal reflux disease without esophagitis; Z72.0 Tobacco use; Z79.899 Other long term (current) drug therapy; Z87.09 Personal history of other diseases of the respiratory system; Z86.59 Personal history of other mental and behavioral disorders; Z87.19 Personal history of other diseases of the digestive system; Z87.39 Personal history of other diseases of the musculoskeletal system and connective tissue; Z86.69 Personal history of other diseases of the nervous system and sense organs
CPT/HCPCS: 70450; 72125; 80053; 81001; 82550; 84484; 85025; 85610; 85730; 87804; 93005; 96374; 96375; 99285; J1885; J2405; J7030

== ENCOUNTER 2017-10-30 12:51 | Emergency (ER) | payer SELFPAY ==
[~2017-10-30] VITALS: Ht 165.1 cm; Wt 65.0 kg
[~2017-10-30 12:51] MED LIST changes: +CYCL10TA PO
[2017-10-30 13:07] VITALS: BP 128/75; PULSE 77; RESP 17; TEMP 98.6; O2SAT 96
[2017-10-30] MEDS ORDERED: SODIUM CHLOR 0.9% 1000 ML INJ 1,000 ML IV ONE (13:15)
[2017-10-30] MEDS ORDERED: LORazepam 2 MG/ML VIAL IVS ONE (13:15)
[2017-10-30] MEDS ORDERED: levETIRAcetam INJ 500 MG in SODIUM CHLORIDE 0.9% INJ 100 ML IV ONE (13:15)
[2017-10-30] MEDS ORDERED: SODIUM CHLORIDE 0.9% FLUSH 10 ML FLUSH IVF PRN (13:15)
[2017-10-30 13:18] VITALS: O2SAT 98
[2017-10-30 13:43] LABS: AUTOMATED NEUTROPHIL # 7.3 TH/MM3 (1.8-7.7); BASOPHIL # 0.1 TH/MM3 (0-0.2); BASOPHIL % 0.7 % (0.0-2.0); EOSINOPHIL % 0.4 % (0.0-4.0); HEMATOCRIT 37.8 % (35.0-46.0); HEMO FLAGS DIFF FINAL; LYMPH % 23.2 % (9.0-44.0); LYMPHOCYTE # 2.4 TH/MM3 (1.0-4.8); MEAN CELL VOLUME 83.6 FL (80.0-100.0); MEAN CORPUSCULAR HEMOGLOBIN 27.2 PG (27.0-34.0); MEAN CORPUSCULAR HGB CONC 32.5 % (32.0-36.0); MONO % 4.8 % (0.0-8.0); NEUT % 70.9 % (16.0-70.0); PLATELET COUNT 199 TH/MM3 (150-450); RED BLOOD COUNT 4.51 MIL/MM3 (4.00-5.30); RED CELL DISTRIBUTION WIDTH 17.3 % (11.6-17.2); WHITE BLOOD COUNT 10.3 TH/MM3 (4.0-11.0)
--- NOTE | 2017-10-30 13:49 | RADRPT ---
EXAM DATE/TIME: 10/30/2017 13:33 [facility] COMPARISON: No previous studies available for comparison. INDICATIONS : Seizures with headache. RADIATION DOSE: 56.00 CTDIvol (mGy) MEDICAL HISTORY : Seizures. Cerebrovascular disease. SURGICAL HISTORY : Hysterectomy. Cholecystectomy. ENCOUNTER: Initial ACUITY: 1 day PAIN SCALE: 8/10 LOCATION: Bilateral cranial TECHNIQUE: Multiple contiguous axial images were obtained of the head. Using automated exposure control and adj ustment of the mA and/or kV according to patient size, radiation dose was kept as low as reasonably a chievable to obtain optimal diagnostic quality images. DICOM format image data is available electro nically for review and comparison. FINDINGS: CEREBRUM: The ventricles are normal for age. No evidence of midline shift, mass lesion, hemorrhage or acute in farction. No extra-axial fluid collections are seen. POSTERIOR FOSSA: The cerebellum and brainstem are intact. The 4th ventricle is midline. The cerebellopontine angle i s unremarkable. EXTRACRANIAL: The visualized portion of the orbits is intact. SKULL: The calvaria is intact. No evidence of skull fracture. CONCLUSION: No acute intracranial disease. Micha Martino MD on October 30, 2017 at 13:46 Board Certified Radiologist. This report was verified electronically.
--- NOTE | 2017-10-30 13:53 | RADRPT ---
EXAM DATE/TIME: 10/30/2017 13:31 [facility] COMPARISON: No previous studies available for comparison. INDICATIONS : Left hand pain due to fall from seizure. MEDICAL HISTORY : Cerebrovascular disease. Seizures. SURGICAL HISTORY : Hysterectomy. Tubal ligation.Cholecystectomy. ENCOUNTER: Initial ACUITY: 1 day PAIN SCORE: 6/10 LOCATION: Left Hand. FINDINGS: Two view examination of the left hand demonstrates no soft tissue swelling, dislocation, or fracture. The joint spaces are maintained. Bony mineralization is normal. CONCLUSION: No acute fracture. Micha Martino MD on October 30, 2017 at 13:47 Board Certified Radiologist. This report was verified electronically.
[2017-10-30 14:01] LABS: ALT (GPT) 17 U/L (10-53)
--- NOTE | 2017-10-30 14:01 | PD ---
HPI Chief Complaint: Seizure Time Seen by Provider: 12:56 Travel History International Travel<30 days: No Contact w/Intl Traveler<30days: No Traveled to known affect area: No History of Present Illness HPI The patient is a 47-year-old female who presents to the emergency department via EMS after an apparent seizure. The patient has a history of seizures, states she had multiple seizures a year, was eventually taken off his seizure medications and was doing well until recently. The patient states her last several months she's had increasing seizures which she attributes to stress at work. The patient has been on multiple medications in the past including Neurontin, Depakote, Tegretol, and Keppra. The patient states Neurontin caused aching of her feet, however, the Keppra did work well. She does attribute her seizures somewhat to anxiety. The patient states she was sitting down earlier today when her symptoms started. She denies any trauma to the head or neck. She denies any chest pain, shortness breath, nausea, vomiting, or abdominal pain. She did complain of left hand pain. She denies any difficulties in her lower extremity is, however, did complain of some cramping to the right leg. PFSH Past Medical History Asthma: Yes Bipolar Disorder: Yes Anxiety: Yes Heart Rhythm Problems: No Cardiac Catheterization: No Cardiovascular Problems: No High Cholesterol: Yes Congestive Heart Failure: No Cerebrovascular Accident: Yes (2008) Diabetes: No Diminished Hearing: No Gastrointestinal Disorders: Yes (COLITIS) GERD: Yes Gout: Yes Headaches: Yes Kidney Stones: No Psychiatric: Yes Migraines: Yes Seizures: Yes ?: Unknown Menopausal: Yes : 5 Para: 4 Miscarriage: 1 Ectopic : Yes Tubal Ligation: Yes (1999) Past Surgical History Cholecystectomy: Yes (2010) Coronary Artery Bypass Graft: No Hysterectomy: Yes Tonsillectomy: Yes Other Surgery: Yes (RIGHT HAND SURG, BLOOD CLOT REMOVED FROM RIGHT WRIST) Family History Family Myocardial Infarction: Yes Social History Alcohol Use: No (DENIES) Tobacco Use: Yes (1 pack per week) Substance Use: No Allergies-Medications (Allergen,Severity, Reaction): Coded Allergies: citalopram (Unverified Allergy, Severe, SUICIDAL THOUGHTS, 10/24/17) gabapentin (Unverified Allergy, Severe, HIVES, dystonic reaction, 10/24/17) haloperidol (Unverified Allergy, Severe, JAW SWELLING, 10/24/17) penicillin G (Unverified Allergy, Severe, Anaphylaxis, 10/24/17) olanzapine (Unverified Adverse Reaction, Severe, SUIICIDAL THOUGHTS, ) sertraline (Unverified Adverse Reaction, Severe, SUIICIDAL THOUGHTS, ) Reported Meds & Prescriptions Reported Meds & Active Scripts Active Flexeril (Cyclobenzaprine HCl) 10 Mg Tab 10 Mg PO TID Reported Omeprazole 20 Mg Tab 20 Mg PO BID Review of Systems Except as stated in HPI: all other systems reviewed are Neg General / Constitutional: No: Fever Eyes: No: Blurred Vision HENT: No: Headaches, Lightheadedness Cardiovascular: No: Chest Pain or Discomfort Respiratory: No: Shortness of Breath Gastrointestinal: No: Nausea, Vomiting, Abdominal Pain Musculoskeletal: Positive: Cramping, No: Weakness Neurologic: Positive: Seizures, No: Headache, Change in Mentation Physical Exam Narrative GENERAL: Awake, alert, pleasant 47-year-old female who appears her stated age and is in no acute respiratory distress. SKIN: Focused skin assessment warm/dry. HEAD: Atraumatic. Normocephalic. EYES: Pupils equal and round. Pupils are 4 mm bilateral and reactive. EOMs are intact. ENT: No nasal bleeding or discharge. Mucous membranes pink and moist. NECK: Trachea midline. No JVD. CARDIOVASCULAR: Regular rate and rhythm. No murmur appreciated. RESPIRATORY: No accessory muscle use. Clear to auscultation. Breath sounds equal bilaterally. GASTROINTESTINAL: Abdomen soft, non-tender, nondistended. MUSCULOSKELETAL: No obvious deformities. No clubbing. No cyanosis. No edema. Mild tenderness of the mid aspect of the left hand, no obvious deformity. NEUROLOGICAL: Awake and alert. No obvious cranial nerve deficits. Motor grossly within normal limits. Normal speech. Nonfocal. Oriented 4. Follows commands without difficulty. PSYCHIATRIC: Appropriate mood and affect; insight and judgment normal. Data Data Last Documented VS Vital Signs Date Time Temp Pulse Resp B/P (MAP) Pulse Ox O2 Delivery O2 Flow Rate FiO2 10/30/17 13:18 98 Room Air 10/30/17 13:07 98.6 77 17 128/75 (92) Orders Orders Complete Blood Count With Diff (10/30/17 13:15) Ct Brain W/O Iv Contrast(Rout) (10/30/17 ) Blood Glucose (10/30/17 13:15) Ecg Monitoring (10/30/17 13:15) Iv Access Insert/Monitor (10/30/17 13:15) Oximetry (10/30/17 13:15) Comprehensive Metabolic Panel (10/30/17 13:15) Sodium Chlor 0.9% 1000 Ml Inj (Ns 1000 M (10/30/17 13:15) Sodium Chloride 0.9% Flush (Ns Flush) (10/30/17 13:15) Lorazepam Inj (Ativan Inj) (10/30/17 13:15) Hand, Limited (2vws) (10/30/17 ) Levetiracetam Inj (Keppra Inj) (10/30/17 13:15) Labs Laboratory Tests Test 10/30/17 13:20 White Blood Count 10.3 TH/MM3 Red Blood Count 4.51 MIL/MM3 Hemoglobin 12.3 GM/DL Hematocrit 37.8 % Mean Corpuscular Volume 83.6 FL Mean Corpuscular Hemoglobin 27.2 PG Mean Corpuscular Hemoglobin Concent 32.5 % Red Cell Distribution Width 17.3 % Platelet Count 199 TH/MM3 Mean Platelet Volume 9.8 FL Neutrophils (%) (Auto) 70.9 % Lymphocytes (%) (Auto) 23.2 % Monocytes (%) (Auto) 4.8 % Eosinophils (%) (Auto) 0.4 % Basophils (%) (Auto) 0.7 % Neutrophils # (Auto) 7.3 TH/MM3 Lymphocytes # (Auto) 2.4 TH/MM3 Monocytes # (Auto) 0.5 TH/MM3 Eosinophils # (Auto) 0.0 TH/MM3 Basophils # (Auto) 0.1 TH/MM3 CBC Comment DIFF FINAL Differential Comment Blood Urea Nitrogen 14 MG/DL Creatinine 0.78 MG/DL Random Glucose 79 MG/DL Total Protein 7.7 GM/DL Albumin 4.0 GM/DL Calcium Level 9.7 MG/DL Alkaline Phosphatase 86 U/L Aspartate Amino Transf (AST/SGOT) 18 U/L Alanine Aminotransferase (ALT/SGPT) 17 U/L Total Bilirubin 0.3 MG/DL Sodium Level 140 MEQ/L Potassium Level 3.8 MEQ/L Chloride Level 109 MEQ/L Carbon Dioxide Level 24.5 MEQ/L Anion Gap 7 MEQ/L Estimat Glomerular Filtration Rate 79 ML/MIN MDM Medical Decision Making Medical Screen Exam Complete: Yes Emergency Medical Condition: Yes Medical Record Reviewed: Yes Interpretation(s) Laboratory Tests Test 10/30/17 13:20 White Blood Count 10.3 TH/MM3 Red Blood Count 4.51 MIL/MM3 Hemoglobin 12.3 GM/DL Hematocrit 37.8 % Mean Corpuscular Volume 83.6 FL Mean Corpuscular Hemoglobin 27.2 PG Mean Corpuscular Hemoglobin Concent 32.5 % Red Cell Distribution Width 17.3 % Platelet Count 199 TH/MM3 Mean Platelet Volume 9.8 FL Neutrophils (%) (Auto) 70.9 % Lymphocytes (%) (Auto) 23.2 % Monocytes (%) (Auto) 4.8 % Eosinophils (%) (Auto) 0.4 % Basophils (%) (Auto) 0.7 % Neutrophils # (Auto) 7.3 TH/MM3 Lymphocytes # (Auto) 2.4 TH/MM3 Monocytes # (Auto) 0.5 TH/MM3 Eosinophils # (Auto) 0.0 TH/MM3 Basophils # (Auto) 0.1 TH/MM3 CBC Comment DIFF FINAL Differential Comment Blood Urea Nitrogen 14 MG/DL Creatinine 0.78 MG/DL Random Glucose 79 MG/DL Total Protein 7.7 GM/DL Albumin 4.0 GM/DL Calcium Level 9.7 MG/DL Alkaline Phosphatase 86 U/L Aspartate Amino Transf (AST/SGOT) 18 U/L Alanine Aminotransferase (ALT/SGPT) 17 U/L Total Bilirubin 0.3 MG/DL Sodium Level 140 MEQ/L Potassium Level 3.8 MEQ/L Chloride Level 109 MEQ/L Carbon Dioxide Level 24.5 MEQ/L Anion Gap 7 MEQ/L Estimat Glomerular Filtration Rate 79 ML/MIN Last Impressions Head CT 10/30/17 0000 Signed Impressions: Service Date/Time: Monday, October 30, 2017 13:33 - CONCLUSION: No acute intracranial disease. Micha Martino MD Hand X-Ray 10/30/17 0000 Signed Impressions: Service Date/Time: Monday, October 30, 2017 13:31 - CONCLUSION: No acute fracture. Micha Martino MD Differential Diagnosis Differential diagnosis includes seizure, breakthrough seizure, pseudoseizure, anxiety, fracture, hyponatremia, hypocalcemia. Narrative Course IV was established, labs are drawn and sent, and the patient was placed on cardiac telemetry monitoring and continuous pulse oximetry monitoring. CT of the brain was obtained. The patient was administered Ativan 0.5 mg intravenously and Keppra 500 mg intravenously. The patient was monitored in the emergency department with seizure precautions. The patient's CT the brain is negative. X-ray of the left hand is unremarkable. The patient's electrolytes including sodium and calcium are within normal limits. The patient had no further seizure activity. The patient states she has a history of previous seizures was on multiple medications, tolerated Well. Therefore, I will place her back on Keppra 500 mg twice a day and advised her to follow-up with neurology. Diagnosis Primary Impression: Seizure disorder Patient Instructions: General Instructions Additional Instructions: Please provide a patient a copy of her CT results and lab results at discharge. Follow-up with a neurologist and her primary physician. Return if symptoms worsen or progress. Med/Other Pt SpecificInfo: Prescription(s) given Scripts Levetiracetam (Keppra) 500 Mg Tab 500 MG PO BID for Control Seizures, #60 TAB 0 Refills Prov: Andreas Mora MD 10/30/17 Disposition: DISCHARGE HOME Condition: Stable Andreas Mora MD Oct 30, 2017 14:01
[2017-10-30 14:03] LABS: ALKALINE PHOSPHATASE 86 U/L (45-117); TOTAL BILIRUBIN ADULT 0.3 MG/DL (0.2-1.0)
[2017-10-30 14:10] LABS: ANION GAP 7 MEQ/L (5-15); AST (GOT) 18 U/L (15-37); BICARBONATE 24.5 MEQ/L (21.0-32.0); BLOOD UREA NITROGEN 14 MG/DL (7-18); CHLORIDE 109 MEQ/L (98-107); GLOMERULAR FILTRATION RATE 79 ML/MIN (>89); POTASSIUM 3.8 MEQ/L (3.5-5.1); SODIUM (NA) 140 MEQ/L (136-145)
[2017-10-30] MEDS ORDERED: LEVE500 PO (14:16)
== END 2017-10-30 16:35 | disposition home or self-care (01) ==
LOC: NEPC 12:51
DX: R56.9 Unspecified convulsions (principal); F31.9 Bipolar disorder, unspecified; J45.909 Unspecified asthma, uncomplicated; E78.00 Pure hypercholesterolemia, unspecified; K21.9 Gastro-esophageal reflux disease without esophagitis; M10.9 Gout, unspecified; F17.200 Nicotine dependence, unspecified, uncomplicated; Z86.73 Personal history of transient ischemic attack (TIA), and cerebral infarction without residual deficits; Z79.899 Other long term (current) drug therapy
CPT/HCPCS: 70450; 73120; 80053; 85025; 96374; 96375; 99285; J1953; J2060; J7030

== ENCOUNTER 2017-11-23 19:27 | Emergency (ER) | payer OTHER ==
[~2017-11-23] VITALS: Ht 165.1 cm; Wt 65.0 kg
[~2017-11-23 19:27] MED LIST changes: +LEVE500 PO
[2017-11-23] MEDS ORDERED: SODIUM CHLOR 0.9% 1000 ML INJ 1,000 ML IV ONE (19:33)
[2017-11-23 19:35] VITALS: BP 181/78; PULSE 129; RESP 20; TEMP 98.1; O2SAT 100
[2017-11-23 19:43] VITALS: RESP 18; O2SAT 99
[2017-11-23] MEDS ORDERED: SODIUM CHLORIDE 0.9% FLUSH 10 ML FLUSH IVF PRN (19:45)
[2017-11-23 19:55] LABS: HEMATOCRIT 39.6 % (35.0-46.0); HEMOGLOBIN 12.9 GM/DL (11.6-15.3); MEAN CORPUSCULAR HEMOGLOBIN 27.6 PG (27.0-34.0); MEAN CORPUSCULAR HGB CONC 32.5 % (32.0-36.0); MEAN PLATELET VOLUME 9.4 FL (7.0-11.0); PLATELET COUNT 243 TH/MM3 (150-450); RED BLOOD COUNT 4.66 MIL/MM3 (4.00-5.30); RED CELL DISTRIBUTION WIDTH 17.2 % (11.6-17.2); WHITE BLOOD COUNT 11.2 TH/MM3 (4.0-11.0)
--- NOTE | 2017-11-23 20:09 | PD ---
HPI Chief Complaint: OD/ Ingestion Time Seen by Provider: 19:33 Travel History International Travel<30 days: No Contact w/Intl Traveler<30days: No Traveled to known affect area: No History of Present Illness HPI 47-year-old female presents to the emergency department by EMS transport after reportedly essentially ingesting a half bottle of Keppra and a half bottle of left over Fioricet. Patient states she has a seizure disorder and reportedly today she thinks she might of had several seizures but denies any known injury. Patient states that she became depressed reportedly. Patient states that she decided subsequently to drink alcohol which reportedly she never does. Patient states subsequently she ingested her prescription medications. Patient states that EMS arrived and then they were very aggressive with her and tried to restrain her and she doesn't know what's going on or why people are being sent mean to her. Patient is very tearful and does present to the emergency department with soft restraints. Patient is able to de-escalate and is cooperative at this time. Patient remains tearful. Patient has a law enforcement Beard act. [facility] Past Medical History Narrative Medical Asthma anxiety depression and bipolar disorder dyslipidemia CVA 2008 without residua seizure gouty arthritis GERD headaches tubal ligation cholecystectomy hysterectomy tobacco use alcohol use nursing notes reviewed Asthma: Yes Bipolar Disorder: Yes Anxiety: Yes Heart Rhythm Problems: No Cardiac Catheterization: No Cardiovascular Problems: No High Cholesterol: Yes Congestive Heart Failure: No Cerebrovascular Accident: Yes (2008) Diabetes: No Diminished Hearing: No Gastrointestinal Disorders: Yes (COLITIS) GERD: Yes Gout: Yes Headaches: Yes Kidney Stones: No Psychiatric: Yes Migraines: Yes Seizures: Yes ?: Not Menopausal: Yes : 5 Para: 4 Miscarriage: 1 Ectopic : Yes Tubal Ligation: Yes (1999) Past Surgical History Cholecystectomy: Yes (2010) Coronary Artery Bypass Graft: No Hysterectomy: Yes Tonsillectomy: Yes Other Surgery: Yes (RIGHT HAND SURG, BLOOD CLOT REMOVED FROM RIGHT WRIST) Family History Family Myocardial Infarction: Yes Social History Alcohol Use: Yes (OCCASSIONALLY) Tobacco Use: Yes (1 pack per week) Substance Use: No Allergies-Medications (Allergen,Severity, Reaction): Coded Allergies: citalopram (Unverified Allergy, Severe, SUICIDAL THOUGHTS, 11/23/17) gabapentin (Unverified Allergy, Severe, HIVES, dystonic reaction, 11/23/17) haloperidol (Unverified Allergy, Severe, JAW SWELLING, 11/23/17) penicillin G (Unverified Allergy, Severe, Anaphylaxis, 11/23/17) olanzapine (Unverified Adverse Reaction, Severe, SUIICIDAL THOUGHTS, ) sertraline (Unverified Adverse Reaction, Severe, SUIICIDAL THOUGHTS, ) Reported Meds & Prescriptions Reported Meds & Active Scripts Active Keppra (Levetiracetam) 500 Mg Tab 500 Mg PO BID Flexeril (Cyclobenzaprine HCl) 10 Mg Tab 10 Mg PO TID Reported Omeprazole 20 Mg Tab 20 Mg PO BID Review of Systems ROS Limitations: Clinical Condition, Poor Historian Except as stated in HPI: all other systems reviewed are Neg Physical Exam Narrative GENERAL: Well-developed well-nourished agitated female crying GCS 15 SKIN: Warm and dry. HEAD: Atraumatic. Normocephalic. EYES: Pupils equal and round. No scleral icterus. No injection or drainage. ENT: No nasal bleeding or discharge. Mucous membranes pink and moist. NECK: Trachea midline. No JVD. CARDIOVASCULAR: Increased regular rate and rhythm. RESPIRATORY: No accessory muscle use. Clear to auscultation. Breath sounds equal bilaterally. GASTROINTESTINAL: Abdomen soft, non-tender, nondistended. Hepatic and splenic margins not palpable. MUSCULOSKELETAL: Extremities without clubbing, cyanosis, or edema. No obvious deformities. NEUROLOGICAL: Awake and alert. No obvious cranial nerve deficits. Motor grossly within normal limits. Five out of 5 muscle strength in the arms and legs. Normal speech. PSYCHIATRIC: Appropriate mood and affect; insight and judgment normal. Data Data Last Documented VS Vital Signs Date Time Temp Pulse Resp B/P (MAP) Pulse Ox O2 Delivery O2 Flow Rate FiO2 11/23/17 22:06 77 16 114/68 (83) 100 Room Air 11/23/17 19:35 98.1 Orders Orders Electrocardiogram (11/23/17 19:33) Complete Blood Count With Diff (11/23/17 19:33) Comprehensive Metabolic Panel (11/23/17 19:33) Prothrombin Time / Inr (Pt) (11/23/17 19:33) Act Partial Throm Time (Ptt) (11/23/17 19:33) Urinalysis - C+S If Indicated (11/23/17 19:33) Chest, Single Ap (11/23/17 19:33) Ct Brain W/O Iv Contrast(Rout) (11/23/17 19:33) Blood Glucose (11/23/17 19:33) Iv Access Insert/Monitor (11/23/17 19:33) Ecg Monitoring (11/23/17 19:33) Oximetry (11/23/17 19:33) Psych Screen (11/23/17 19:33) Sodium Chloride 0.9% Flush (Ns Flush) (11/23/17 19:45) Sodium Chlor 0.9% 1000 Ml Inj (Ns 1000 M (11/23/17 19:33) Call Poison Control (11/23/17 19:33) Restraints Non-Violent JOHNY.Q3H (11/23/17 19:33) Drug Screen, Random Urine (11/23/17 19:33) Alcohol (Ethanol) (11/23/17 19:33) Salicylates (Aspirin) (11/23/17 19:33) Tylenol (Acetaminophen) (11/23/17 19:33) Ed Urine Pregnancytest Poc (11/23/17 19:33) Tylenol (Acetaminophen) (11/23/17 21:56) Potassium Chloride (Kcl) (11/23/17 23:15) Sodium Chlorid 0.9% 500 Ml Inj (Ns 500 M (11/23/17 23:15) Labs Laboratory Tests Test 11/23/17 19:39 11/23/17 19:40 11/23/17 22:03 White Blood Count 11.2 TH/MM3 Red Blood Count 4.66 MIL/MM3 Hemoglobin 12.9 GM/DL Hematocrit 39.6 % Mean Corpuscular Volume 85.0 FL Mean Corpuscular Hemoglobin 27.6 PG Mean Corpuscular Hemoglobin Concent 32.5 % Red Cell Distribution Width 17.2 % Platelet Count 243 TH/MM3 Mean Platelet Volume 9.4 FL CBC Comment AUTO DIFF Differential Total Cells Counted 100 Neutrophils % (Manual) 54 % Lymphocytes % 41 % Monocytes % 5 % Neutrophils # (Manual) 6.0 TH/MM3 Differential Comment FINAL DIFF MANUAL Prothrombin Time 10.8 SEC Prothromb Time International Ratio 1.1 RATIO Activated Partial Thromboplast Time 21.3 SEC Blood Urea Nitrogen 10 MG/DL Creatinine 1.11 MG/DL Random Glucose 141 MG/DL Total Protein 8.2 GM/DL Albumin 4.4 GM/DL Calcium Level 9.9 MG/DL Alkaline Phosphatase 98 U/L Aspartate Amino Transf (AST/SGOT) 29 U/L Alanine Aminotransferase (ALT/SGPT) 24 U/L Total Bilirubin 0.2 MG/DL Sodium Level 143 MEQ/L Potassium Level 3.3 MEQ/L Chloride Level 110 MEQ/L Carbon Dioxide Level 18.3 MEQ/L Anion Gap 15 MEQ/L Estimat Glomerular Filtration Rate 52 ML/MIN Salicylates Level LESS THAN 1.7 MG/DL Acetaminophen Level LESS THAN 2.0 MCG/ML 2.1 MCG/ML Ethyl Alcohol Level 133 MG/DL Urine Color LIGHT-YELLOW Urine Turbidity CLEAR Urine pH 5.5 Urine Specific [place] 1.004 Urine Protein 30 mg/dL Urine Glucose (UA) NEG mg/dL Urine Ketones NEG mg/dL Urine Occult Blood NEG Urine Nitrite NEG Urine Bilirubin NEG Urine Urobilinogen LESS THAN 2.0 MG/DL Urine Leukocyte Esterase NEG Urine RBC 1 /hpf Urine WBC LESS THAN 1 /hpf Urine Squamous Epithelial Cells 1 /hpf Urine Hyaline Casts 23 /lpf Urine Mucus FEW /lpf Microscopic Urinalysis Comment CULT NOT INDICATED Urine Opiates Screen NEG Urine Barbiturates Screen POS Urine Amphetamines Screen NEG Urine Benzodiazepines Screen NEG Urine Cocaine Screen NEG Urine Cannabinoids Screen NEG MDM Medical Decision Making Medical Screen Exam Complete: Yes Emergency Medical Condition: Yes Medical Record Reviewed: Yes Interpretation(s) Acetaminophen level less than 2.0; four-hour repeat 2.1 Salicylate level I.7 not elevated Urine drug screen negative Serum alcohol 133 elevated Last Impressions Head CT 11/23/171932 Signed Impressions: Service Date/Time: Thursday, November 23, 2017 21:34 - CONCLUSION: No acute intracranial disease. Minimal fluid in the right maxillary sinus. Endy Araujo MD Chest X-Ray 11/23/171932 Signed Impressions: Service Date/Time: Thursday, November 23, 2017 19:42 - CONCLUSION: No acute disease. No significant change has occurred. Endy Araujo MD CBC & BMP Diagram 11/23/17 19:39 Total Protein 8.2, Albumin 4.4, Calcium Level 9.9, Alkaline Phosphatase 98, Aspartate Amino Transf (AST/SGOT) 29, Alanine Aminotransferase (ALT/SGPT) 24, Total Bilirubin 0.2 Vital Signs Date Time Temp Pulse Resp B/P (MAP) Pulse Ox O2 Delivery O2 Flow Rate FiO2 11/23/17 22:06 77 16 114/68 (83) 100 Room Air 11/23/17 19:43 18 99 Room Air 11/23/17 19:35 98.1 129 20 181/78 (112) 100 Room Air EKG: Sinus tachycardia rate [address] elevation or injury pattern or ectopy noted artifact is present at baseline Differential Diagnosis Altered mentation secondary to intentional overdose, alcohol intoxication, acetaminophen toxicity, seizure disorder Narrative Course Patient placed on disc jockey IV access obtained specimens collected and sent for resulting IV fluids administered Poison control contacted Patient Monitor EKG Shows No Acute Injury Pattern Change Lab Values Are Found to Be Grossly Within Normal Limits except for Mild Hypokalemia First Acetaminophen Level Is 2 Less Than 2. 0 Repeat Performed at Estimated 4 Hours 2.1 Patient Cooperative Voicing No Concerns or Complaints Patient tolerated oral hydration well At 11:20 PM patient is medically cleared for psychiatric screening evaluation as Beard act Physician Communication Physician Communication psych screen Diagnosis Primary Impression: Depression Qualified Codes: F32.9 - Major depressive disorder, single episode, unspecified Additional Impressions: Overdose Qualified Codes: T50.902A - Poisoning by unspecified drugs, medicaments and biological substances, intentional self-harm, initial encounter Alcohol ingestion Nicole Russ MD Nov 23, 2017 20:09
[2017-11-23 20:14] LABS: INTERNATIONAL NORMALIZED RATIO 1.1 RATIO; PROTHROMBIN TIME - PATIENT 10.8 SEC (9.8-11.6)
[2017-11-23 20:15] LABS: ALT (GPT) 24 U/L (10-53)
[2017-11-23 20:18] LABS: ALKALINE PHOSPHATASE 98 U/L (45-117); TOTAL BILIRUBIN ADULT 0.2 MG/DL (0.2-1.0); TOTAL PROTEIN 8.2 GM/DL (6.4-8.2)
[2017-11-23 20:24] LABS: ALBUMIN 4.4 GM/DL (3.4-5.0); AST (GOT) 29 U/L (15-37); BICARBONATE 18.3 MEQ/L (21.0-32.0); BLOOD UREA NITROGEN 10 MG/DL (7-18); CALCIUM 9.9 MG/DL (8.5-10.1); CHLORIDE 110 MEQ/L (98-107); CREATININE 1.11 MG/DL (0.50-1.00); GLOMERULAR FILTRATION RATE 52 ML/MIN (>89); GLUCOSE,RANDOM 141 MG/DL (74-106); SODIUM (NA) 143 MEQ/L (136-145)
[2017-11-23 20:26] LABS: LYMPHOCYTES 41 % (9-44); MONOCYTES 5 % (0-8); POLYS (SEG NEUTROPHILS) 54 % (16-70)
[2017-11-23 20:30] LABS: ACETAMINOPHEN LESS THAN 2.0 MCG/ML (10.0-30.0)
[2017-11-23 20:33] LABS: BILIRUBIN, URINE NEG (NEG); BLOOD, URINE NEG (NEG); GLUCOSE,URINE NEG (NEG); HYALINE CAST, URINE 23 /lpf (RARE); KETONE, URINE NEG (NEG); MUCUS URINE FEW /lpf (OCC); NITRITE,URINE NEG (NEG); PH, URINE 5.5 (5.0-8.5); SQUAMOUS EPITHELIAL CELL URINE 1 /hpf (0-5); URINE COLOR LIGHT-YELLOW (YELLW/STRAW); URINE LEUKOCYTE ESTERASE NEG (NEG)
--- NOTE | 2017-11-23 20:49 | RADRPT ---
EXAM DATE/TIME: 11/23/2017 19:42 [facility] COMPARISON: CHEST SINGLE AP, September 18, 2017, 9:53. INDICATIONS : Altered mental status. MEDICAL HISTORY : Seizures. Cerebrovascular disease. SURGICAL HISTORY : Hysterectomy. Cholecystectomy. ENCOUNTER: Initial ACUITY: 1 day PAIN SCORE: Non-responsive. LOCATION: Bilateral chest FINDINGS: A single view of the chest demonstrates the lungs to be symmetrically aerated without evidence of mas s, infiltrate or effusion. The cardiomediastinal contours are unremarkable. Osseous structures are intact. CONCLUSION: No acute disease. No significant change has occurred. Endy Araujo MD on November 23, 2017 at 20:46 Board Certified Radiologist. This report was verified electronically.
[2017-11-23 22:06] VITALS: BP 114/68; PULSE 77; RESP 16; O2SAT 100
--- NOTE | 2017-11-23 22:13 | RADRPT ---
EXAM DATE/TIME: 11/23/2017 21:34 [facility] COMPARISON: CT BRAIN W/O CONTRAST, October 30, 2017, 13:33. INDICATIONS : Altered mental status. Overdose. RADIATION DOSE: 31.47 CTDIvol (mGy) MEDICAL HISTORY : Cerebrovascular disease. Seizures. SURGICAL HISTORY : Cholecystectomy. Hysterectomy. ENCOUNTER: Initial ACUITY: 1 day PAIN SCALE: 0/10 LOCATION: cranial TECHNIQUE: Multiple contiguous axial images were obtained of the head. Using automated exposure control and adj ustment of the mA and/or kV according to patient size, radiation dose was kept as low as reasonably a chievable to obtain optimal diagnostic quality images. DICOM format image data is available electro nically for review and comparison. FINDINGS: CEREBRUM: The ventricles are normal for age. No evidence of midline shift, mass lesion, hemorrhage or acute in farction. No extra-axial fluid collections are seen. POSTERIOR FOSSA: The cerebellum and brainstem are intact. The 4th ventricle is midline. The cerebellopontine angle i s unremarkable. EXTRACRANIAL: The visualized portion of the orbits is intact. Small amount of fluid is identified in the right maxi llary sinus. SKULL: The calvaria is intact. No evidence of skull fracture. CONCLUSION: No acute intracranial disease. Minimal fluid in the right maxillary sinus. Endy Araujo MD on November 23, 2017 at 22:09 Board Certified Radiologist. This report was verified electronically.
[2017-11-23] MEDS ORDERED: SODIUM CHLORID 0.9% 500 ML INJ 500 ML IV ONE (23:15)
[2017-11-23] MEDS ORDERED: POTASSIUM CHLORIDE 20 MEQ CONTROLLED RELEASE TAB PO ONE (23:15)
[2017-11-24 02:00] VITALS: BP 119/59; PULSE 75; RESP 16; TEMP 98.6; O2SAT 97
--- NOTE | 2017-11-24 12:58 | EKG ---
Date Performed: 11/23/2017 Time Performed: 19:43:54 PTAGE: 47 years EKG: SINUS TACHYCARDIA ABNORMAL RHYTHM ECG PREVIOUS TRACING : 10/24/2017 09.31 Since previous tracing, heart rate is faster; otherwise, no significant change. DOCTOR: Orlando Chadwick Interpretating Date/Time 11/24/2017 12:56:28
== END 2017-11-24 04:10 ==
LOC: NEPC 19:27 → NEPJ 11-24 04:10
DX: T42.6X2A Poisoning by other antiepileptic and sedative-hypnotic drugs, intentional self-harm, initial encounter (principal); T39.1X2A Poisoning by 4-Aminophenol derivatives, intentional self-harm, initial encounter; G40.909 Epilepsy, unspecified, not intractable, without status epilepticus; E87.6 Hypokalemia; R00.0 Tachycardia, unspecified; R94.31 Abnormal electrocardiogram [ECG] [EKG]; M10.9 Gout, unspecified; F31.9 Bipolar disorder, unspecified; F41.9 Anxiety disorder, unspecified
CPT/HCPCS: 70450; 71045; 80053; 80307; 81001; 84703; 85007; 85027; 85610; 85730; 93005; 96360; 96361; 99285; J7030; J7040

== ENCOUNTER 2017-12-04 09:09 | Emergency (ER) | payer BC ==
[~2017-12-04] VITALS: Ht 165.1 cm; Wt 63.5 kg
[2017-12-04 09:13] VITALS: BP 128/80; PULSE 105; RESP 22; TEMP 98.4; O2SAT 100
--- NOTE | 2017-12-04 09:51 | PD ---
HPI Chief Complaint: Pain: Acute or Chronic Time Seen by Provider: 09:30 Travel History International Travel<30 days: No Contact w/Intl Traveler<30days: No Traveled to known affect area: No History of Present Illness HPI The patient was seen and examined in the presence of the nurse. This patient complains of left upper chest pain. Duration is 10 days. She says it started when paramedics brought her to the emergency room and she had to be restrained. She says one of them felt on her chest wall with his knee pressing into her ribs. This is the area that hurts. She has pain when she moves or takes a breath. Severity is moderate. PFSH Past Medical History Asthma: Yes Bipolar Disorder: Yes Anxiety: Yes Heart Rhythm Problems: No Cardiac Catheterization: No Cardiovascular Problems: No High Cholesterol: Yes Congestive Heart Failure: No Cerebrovascular Accident: Yes (2008) Diabetes: Yes Diminished Hearing: No Gastrointestinal Disorders: Yes (COLITIS) GERD: Yes Gout: Yes Headaches: Yes Kidney Stones: No Psychiatric: Yes Migraines: Yes Seizures: Yes Menopausal: Yes : 5 Para: 4 Miscarriage: 1 Ectopic : Yes Tubal Ligation: Yes (1999) Past Surgical History Cholecystectomy: Yes (2010) Coronary Artery Bypass Graft: No Hysterectomy: Yes Tonsillectomy: Yes Other Surgery: Yes (RIGHT HAND SURG, BLOOD CLOT REMOVED FROM RIGHT WRIST) Social History Alcohol Use: Yes (OCCASSIONALLY) Tobacco Use: Yes (1 pack per week) Substance Use: Yes Allergies-Medications (Allergen,Severity, Reaction): Coded Allergies: gabapentin (Unverified Allergy, Severe, HIVES, dystonic reaction, 12/04/17) penicillin G (Unverified Allergy, Severe, Anaphylaxis, 12/04/17) haloperidol (Unverified Adverse Reaction, Severe, Hives, 12/04/17) olanzapine (Unverified Adverse Reaction, Severe, SUIICIDAL THOUGHTS, ) sertraline (Unverified Adverse Reaction, Severe, SUIICIDAL THOUGHTS, ) citalopram (Unverified Adverse Reaction, Intermediate, SUICIDAL THOUGHTS, 12/04/17) Reported Meds & Prescriptions Reported Meds & Active Scripts Active Keppra (Levetiracetam) 500 Mg Tab 500 Mg PO BID Reported Omeprazole 20 Mg Tab 20 Mg PO BID Review of Systems General / Constitutional: No: Fever Eyes: No: Visual changes HENT: No: Headaches Cardiovascular: Positive: Chest Pain or Discomfort Respiratory: No: Shortness of Breath Gastrointestinal: No: Abdominal Pain Genitourinary: No: Dysuria Musculoskeletal: No: Pain Skin: No Rash Neurologic: No: Weakness Psychiatric: No: Depression Endocrine: No: Polydipsia Hematologic/Lymphatic: No: Easy Bruising Physical Exam Narrative GENERAL: Well-nourished, well-developed patient in no apparent distress. SKIN: Focused skin assessment reveals no rash and nodules. Skin is Warm and dry. HEAD: Atraumatic. Normocephalic. EYES: Pupils equal and round. No scleral icterus. No injection or drainage. ENT: No nasal bleeding or discharge. Mucous membranes pink and moist. NECK: Trachea midline. No JVD. CARDIOVASCULAR: Regular rate and rhythm. No murmur appreciated. RESPIRATORY: No accessory muscle use. Clear to auscultation. Breath sounds equal bilaterally. GASTROINTESTINAL: Abdomen soft, non-tender, nondistended. Hepatic and splenic margins not palpable. MUSCULOSKELETAL: No obvious deformities. No clubbing. No cyanosis. No edema. Prominent reproducible tenderness of the left upper chest. No Crepitus or bruising. NEUROLOGICAL: Awake and alert. No obvious cranial nerve deficits. Motor grossly within normal limits. Normal speech. PSYCHIATRIC: Appropriate mood and affect; insight and judgment normal. Data Data Last Documented VS Vital Signs Date Time Temp Pulse Resp B/P (MAP) Pulse Ox O2 Delivery O2 Flow Rate FiO2 12/04/17 09:13 98.4 105 22 128/80 (96) 100 Orders Orders Chest, Single Ap (12/04/17 ) [facility] Medical Decision Making Medical Screen Exam Complete: Yes Emergency Medical Condition: Yes Medical Record Reviewed: Yes Differential Diagnosis Rib contusion, fracture, pneumothorax Narrative Course I have reviewed the patient's electronic medical record. Reviewed her visit from 12 days ago, she was here for overdose I reviewed her chest x-ray which is normal There are no objective findings on exam. Gradual resolution is expected and hoped for.The patient was advised to follow up with their physician and return if they worsen. Diagnosis Primary Impression: Musculoskeletal chest pain Additional Instructions: The patient was advised to follow up with their physician and return if they worsen. Med/Other Pt SpecificInfo: Other Disposition: 01 DISCHARGE HOME Condition: Stable Sammy Johnston MD Dec 04, 2017 09:51
--- NOTE | 2017-12-04 10:34 | RADRPT ---
EXAM DATE/TIME: 12/04/2017 10:07 [facility] COMPARISON: CHEST SINGLE AP, November 23, 2017, 19:42. INDICATIONS : Chest pain, short of breath. MEDICAL HISTORY : None. SURGICAL HISTORY : None. ENCOUNTER: Initial ACUITY: 1 week PAIN SCORE: 9/10 LOCATION: Bilateral chest FINDINGS: A single view of the chest demonstrates the lungs to be symmetrically aerated without evidence of mas s, infiltrate or effusion. The cardiomediastinal contours are unremarkable. Osseous structures are intact. CONCLUSION: Normal examination. Lex Delvalle MD on December 04, 2017 at 10:30 Board Certified Radiologist. This report was verified electronically.
[2017-12-04 11:19] VITALS: BP 120/77; PULSE 88; RESP 17; O2SAT 100
== END 2017-12-04 11:22 | disposition home or self-care (01) ==
LOC: NEPD 09:09
DX: R07.89 Other chest pain (principal); J45.909 Unspecified asthma, uncomplicated; F31.9 Bipolar disorder, unspecified; F41.9 Anxiety disorder, unspecified; E78.00 Pure hypercholesterolemia, unspecified; E11.9 Type 2 diabetes mellitus without complications; M10.9 Gout, unspecified; K21.9 Gastro-esophageal reflux disease without esophagitis; Z86.73 Personal history of transient ischemic attack (TIA), and cerebral infarction without residual deficits
CPT/HCPCS: 71045; 99283

== ENCOUNTER 2018-01-17 08:36 | Emergency (ER) | payer SELFPAY ==
[~2018-01-17] VITALS: Ht 165.1 cm; Wt 64.0 kg
[~2018-01-17 08:36] MED LIST changes: -CYCL10TA PO
[2018-01-17 08:38] VITALS: BP 135/85; PULSE 106; RESP 20; TEMP 97.8; O2SAT 99
[2018-01-17] MEDS ORDERED: ABIL10TA8 PO (08:44)
[2018-01-17] MEDS ORDERED: VENL37.5 PO (08:44)
--- NOTE | 2018-01-17 08:53 | PD ---
HPI Chief Complaint: Allergic/Adverse Reaction Time Seen by Provider: 08:46 Travel History International Travel<30 days: No Contact w/Intl Traveler<30days: No Traveled to known affect area: No History of Present Illness HPI 47-year-old female came to the emergency room with history of feeling like she is having an allergic reaction after she took her psych medication for the first time. Patient was prescribed Abilify and Effexor by her psychiatrist that she took the first dose of both today. Soon after she started feeling like her tongue was swelling and she was having hard time swallowing. She also felt like her jaw was clenching and there was tingling around her mouth. Patient seemed extremely anxious. Vital signs are stable. As she was telling me all this her speech sounded clear and there was no signs of respiratory distress. Patient has had psych medications at the same class in the past. She has never had this kind of reaction before as per her. PFSH Past Medical History Narrative Medical List of her past medical, surgical, social and family history is reviewed from the nursing note. Asthma: Yes Bipolar Disorder: Yes Anxiety: Yes Depression: Yes Heart Rhythm Problems: No Cardiac Catheterization: No Cardiovascular Problems: No High Cholesterol: Yes Congestive Heart Failure: No Cerebrovascular Accident: Yes (2008) Diabetes: Yes Diminished Hearing: No Gastrointestinal Disorders: Yes (COLITIS) GERD: Yes Gout: Yes Headaches: Yes Kidney Stones: No Psychiatric: Yes Migraines: Yes Seizures: Yes Tetanus Vaccination: > 5 Years Influenza Vaccination: No ?: Not Menopausal: Yes : 5 Para: 4 Miscarriage: 1 Ectopic : Yes Tubal Ligation: Yes (1999) Past Surgical History Cholecystectomy: Yes (2010) Coronary Artery Bypass Graft: No Hysterectomy: Yes Tonsillectomy: Yes Other Surgery: Yes (RIGHT HAND SURG, BLOOD CLOT REMOVED FROM RIGHT WRIST) Family History Family Myocardial Infarction: Yes Social History Alcohol Use: Yes (OCCASSIONALLY) Tobacco Use: Yes (1 pack per week) Substance Use: Yes Allergies-Medications (Allergen,Severity, Reaction): Coded Allergies: gabapentin (Verified Allergy, Severe, HIVES, dystonic reaction, 01/17/18) haloperidol (Verified Allergy, Severe, Hives, 01/17/18) olanzapine (Verified Allergy, Severe, SOB, 01/17/18) penicillin G (Verified Allergy, Severe, Anaphylaxis, 01/17/18) sertraline (Verified Allergy, Severe, SOB, 01/17/18) aripiprazole (Verified Allergy, Intermediate, SOB, 01/17/18) citalopram (Verified Allergy, Intermediate, SOB, 01/17/18) venlafaxine (Verified Allergy, Unknown, SOB, 01/17/18) Comments List of allergies reviewed from the nursing note. Reported Meds & Prescriptions Reported Meds & Active Scripts Active Keppra (Levetiracetam) 500 Mg Tab 500 Mg PO BID Reported [amberen] Effexor (Venlafaxine HCl) 37.5 Mg Tab 37.5 Mg PO Q12H Abilify (Aripiprazole) 10 Mg Tab 10 Mg PO DAILY Omeprazole 20 Mg Tab 20 Mg PO BID Narrative Medication List of home medications reviewed from the nursing note. Review of Systems Except as stated in HPI: all other systems reviewed are Neg Neurologic: Positive: Paresthesia Physical Exam Narrative GENERAL: Awake, alert, anxious SKIN: Focused skin assessment warm/dry. HEAD: Atraumatic. Normocephalic. EYES: Pupils equal and round. No scleral icterus. No injection or drainage. ENT: No nasal bleeding or discharge. Mucous membranes pink and moist. No swelling of the tongue or the pharynx. NECK: Trachea midline. No JVD. No stridor CARDIOVASCULAR: Regular rate and rhythm. No murmur appreciated. RESPIRATORY: No accessory muscle use. Clear to auscultation. Breath sounds equal bilaterally. GASTROINTESTINAL: Abdomen soft, non-tender, nondistended. Hepatic and splenic margins not palpable. MUSCULOSKELETAL: No obvious deformities. No clubbing. No cyanosis. No edema. NEUROLOGICAL: Awake and alert. No obvious cranial nerve deficits. Motor grossly within normal limits. Normal speech. PSYCHIATRIC: Appropriate mood and affect; insight and judgment normal. Data Data Last Documented VS Vital Signs Date Time Temp Pulse Resp B/P (MAP) Pulse Ox O2 Delivery O2 Flow Rate FiO2 01/17/18 11:30 97.8 87 16 122/81 (95) 100 01/17/18 10:10 Room Air Orders Orders Diphenhydramine Inj (Benadryl Inj) (01/17/18 09:00) Drug Screen, Random Urine (01/17/18 08:57) Lorazepam (Ativan) (01/17/18 10:15) Ed Discharge Order (01/17/18 11:21) Labs Laboratory Tests Test 01/17/18 09:31 Urine Opiates Screen NEG Urine Barbiturates Screen NEG Urine Amphetamines Screen NEG Urine Benzodiazepines Screen NEG Urine Cocaine Screen NEG Urine Cannabinoids Screen NEG MDM Medical Decision Making Medical Screen Exam Complete: Yes Emergency Medical Condition: Yes Medical Record Reviewed: Yes Differential Diagnosis Dystonic reaction versus allergic react Narrative Course 11:24 AM patient was given IV Benadryl 50 mg and she still continued to complain of the same symptoms. Patient was given 1 mg of by mouth Ativan and I reassessed her. She says she is feeling better. She is comfortable being discharged home. I asked her to call her psychiatrist and mention to him about the side effects of these medications. In my opinion she should not be taking these medications anymore. Patient understands. Procedures EKG Prior to Arrival: No Diagnosis Primary Impression: Medication side effect Additional Impression: Anxiety Referrals: Primary Care Physician Additional Instructions: Please contact his psychiatrist and let them know about this medication side effect you had. Follow-up with him. Return to ER if condition worsens or any other new concerns. Disposition: 01 DISCHARGE HOME Condition: Stable Mayte Cerna MD Jan 17, 2018 08:53
[2018-01-17] MEDS ORDERED: diphenhydrAMINE HCL 50 MG/ML VIAL IV PUSH ONE (09:00)
[2018-01-17 09:48] VITALS: BP 110/76; PULSE 89; RESP 17; TEMP 97.8; O2SAT 100
[2018-01-17 10:10] VITALS: BP 124/85; PULSE 89; RESP 16; O2SAT 99
[2018-01-17] MEDS ORDERED: LORazepam 1 MG TAB PO ONE (10:15)
[2018-01-17 11:30] VITALS: BP 122/81; TEMP 97.8
[2018-01-18] MEDS ORDERED: amberen (13:18)
== END 2018-01-17 11:30 | disposition home or self-care (01) ==
LOC: NEPC 08:36
DX: F41.9 Anxiety disorder, unspecified (principal); T50.905A Adverse effect of unspecified drugs, medicaments and biological substances, initial encounter; X58.XXXA Exposure to other specified factors, initial encounter
CPT/HCPCS: 80307; 96374; 99284; J1200

== ENCOUNTER 2018-01-18 12:35 | Emergency (ER) | payer SELFPAY ==
[~2018-01-18] VITALS: Ht 165.1 cm; Wt 64.0 kg
[~2018-01-18 12:35] MED LIST changes: +ABIL10TA8 PO; +VENL37.5 PO
[2018-01-18 12:45] VITALS: BP 123/74; PULSE 95; RESP 19; TEMP 98.2; O2SAT 95
[2018-01-18 13:12] VITALS: BP 133/86; PULSE 80; RESP 18; O2SAT 100
[2018-01-18] MEDS ORDERED: amberen (13:18)
--- NOTE | 2018-01-18 14:10 | PD ---
HPI Chief Complaint: Allergic/Adverse Reaction Time Seen by Provider: 13:04 Travel History International Travel<30 days: No Contact w/Intl Traveler<30days: No Traveled to known affect area: No History of Present Illness HPI 47-year-old female came to the emergency room for right-sided facial twitches, tingling and right upper extremity weakness. Patient was incidentally seen by me yesterday for similar complaint and she had to be admitted to being started on new psych medication namely Effexor and Abilify. Patient had taken first dose yesterday morning. Able to them and soon after these symptoms especially the facial twitching and tingling started. She was given Ativan which subsided her symptoms and patient was discharged home. I specifically asked her to call her psychiatrist and discussed this with him. Patient is back today and says that she did not call the psychiatrist. She hasn't taken anymore of her medications and her symptoms continue. 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 Vital signs otherwise stable. Patient is a smoker. Patient denies doing any drugs. [facility] Past Medical History Narrative Medical List of her past medical, surgical, social and family history is reviewed from the nursing note. Asthma: Yes Bipolar Disorder: Yes Anxiety: Yes Depression: Yes Heart Rhythm Problems: No Cardiac Catheterization: No Cardiovascular Problems: No High Cholesterol: Yes Congestive Heart Failure: No Cerebrovascular Accident: Yes (2008) Diabetes: Yes Diminished Hearing: No Gastrointestinal Disorders: Yes (COLITIS) GERD: Yes Gout: Yes Headaches: Yes Heparin Induced Thrombocytopen: No Hypertension: No Kidney Stones: No Psychiatric: Yes Migraines: Yes Seizures: Yes ?: Not Menopausal: Yes : 5 Para: 4 Miscarriage: 1 Ectopic : Yes Tubal Ligation: Yes (1999) Past Surgical History Cholecystectomy: Yes (2010) Coronary Artery Bypass Graft: No Hysterectomy: Yes Tonsillectomy: Yes Other Surgery: Yes (RIGHT HAND SURG, BLOOD CLOT REMOVED FROM RIGHT WRIST) Family History Family Myocardial Infarction: Yes Social History Alcohol Use: Yes (OCCASSIONALLY) Tobacco Use: Yes (1 pack per week) Substance Use: No Allergies-Medications (Allergen,Severity, Reaction): Coded Allergies: gabapentin (Verified Allergy, Severe, HIVES, dystonic reaction, 01/17/18) haloperidol (Verified Allergy, Severe, Hives, 01/17/18) olanzapine (Verified Allergy, Severe, SOB, 01/17/18) penicillin G (Verified Allergy, Severe, Anaphylaxis, 01/17/18) sertraline (Verified Allergy, Severe, SOB, 01/17/18) aripiprazole (Verified Allergy, Intermediate, SOB, 01/17/18) citalopram (Verified Allergy, Intermediate, SOB, 01/17/18) venlafaxine (Verified Allergy, Unknown, SOB, 01/17/18) Comments List of her allergies reviewed from the nursing note. Reported Meds & Prescriptions Reported Meds & Active Scripts Active Keppra (Levetiracetam) 500 Mg Tab 500 Mg PO BID Reported [amberen] Effexor (Venlafaxine HCl) 37.5 Mg Tab 37.5 Mg PO Q12H Abilify (Aripiprazole) 10 Mg Tab 10 Mg PO DAILY Omeprazole 20 Mg Tab 20 Mg PO BID Narrative Medication List of her home medications reviewed from the nursing note. Review of Systems Except as stated in HPI: all other systems reviewed are Neg Neurologic: Positive: Paresthesia Physical Exam Narrative GENERAL: Awake, alert, anxious SKIN: Focused skin assessment warm/dry. HEAD: Atraumatic. Normocephalic. EYES: Pupils equal and round. No scleral icterus. No injection or drainage. ENT: No nasal bleeding or discharge. Mucous membranes pink and moist. Right facial muscle twitching, questionable voluntary. The twitching and the facial grimace goes away when patient is talking. NECK: Trachea midline. No JVD. CARDIOVASCULAR: Regular rate and rhythm. No murmur appreciated. RESPIRATORY: No accessory muscle use. Clear to auscultation. Breath sounds equal bilaterally. GASTROINTESTINAL: Abdomen soft, non-tender, nondistended. Hepatic and splenic margins not palpable. MUSCULOSKELETAL: No obvious deformities. No clubbing. No cyanosis. No edema. NEUROLOGICAL: Awake and alert. No obvious cranial nerve deficits. Motor grossly within normal limits. Normal speech. PSYCHIATRIC: Appropriate mood and affect; insight and judgment normal. Data Data Last Documented VS Vital Signs Date Time Temp Pulse Resp B/P (MAP) Pulse Ox O2 Delivery O2 Flow Rate FiO2 01/18/18 13:12 82 18 100 Room Air 01/18/18 13:12 133/86 (102) 01/18/18 12:[address] Brain W/O Iv Contrast(Rout) (01/18/18 ) Mri Brain W&W/O Contrast (01/18/18 ) Mra Brain W/O Contrast (Cow) (01/18/18 ) Complete Blood Count With Diff (01/18/18 13:32) Basic Metabolic Panel (Bmp) (01/18/18 13:32) Prothrombin Time / Inr (Pt) (01/18/18 13:32) Mra Carotids W Contrast (01/18/18 ) Gadodiamide Pf Inj (Omniscan Pf Inj) (01/18/18 16:00) Ed Discharge Order (01/18/18 17:39) Labs Laboratory Tests Test 01/18/18 13:45 White Blood Count 8.7 TH/MM3 Red Blood Count 4.48 MIL/MM3 Hemoglobin 12.9 GM/DL Hematocrit 38.0 % Mean Corpuscular Volume 84.8 FL Mean Corpuscular Hemoglobin 28.7 PG Mean Corpuscular Hemoglobin Concent 33.9 % Red Cell Distribution Width 14.1 % Platelet Count 214 TH/MM3 Mean Platelet Volume 9.8 FL Neutrophils (%) (Auto) 58.2 % Lymphocytes (%) (Auto) 32.2 % Monocytes (%) (Auto) 6.8 % Eosinophils (%) (Auto) 0.6 % Basophils (%) (Auto) 2.2 % Neutrophils # (Auto) 5.1 TH/MM3 Lymphocytes # (Auto) 2.8 TH/MM3 Monocytes # (Auto) 0.6 TH/MM3 Eosinophils # (Auto) 0.1 TH/MM3 Basophils # (Auto) 0.2 TH/MM3 CBC Comment DIFF FINAL Differential Comment Prothrombin Time 11.0 SEC Prothromb Time International Ratio 1.1 RATIO Blood Urea Nitrogen 13 MG/DL Creatinine 1.01 MG/DL Random Glucose 100 MG/DL Calcium Level 9.8 MG/DL Sodium Level 138 MEQ/L Potassium Level 3.9 MEQ/L Chloride Level 104 MEQ/L Carbon Dioxide Level 28.4 MEQ/L Anion Gap 6 MEQ/L Estimat Glomerular Filtration Rate 59 ML/MIN [facility] Medical Decision Making Medical Screen Exam Complete: Yes Emergency Medical Condition: Yes Medical Record Reviewed: Yes Differential Diagnosis Psychosomatic, medication side effect Narrative Course 2:52 PM blood test results of back and within acceptable limits. Head CT is negative. Awaiting for the MRI to be done and resulted. The MRI is negative patient will be discharged home. 3:37 PM patient is in the MRI. Awaiting for the test to be done and resulted. Procedures EKG Prior to Arrival: No Diagnosis Primary Impression: Anxiety Referrals: Primary Care Physician Additional Instructions: follow-up with his psychiatrist. Disposition: 01 DISCHARGE HOME Condition: Stable Mayte Cerna MD Jan 18, 2018 14:10
[2018-01-18 14:12] LABS: AUTOMATED NEUTROPHIL # 5.1 TH/MM3 (1.8-7.7); BASOPHIL # 0.2 TH/MM3 (0-0.2); BASOPHIL % 2.2 % (0.0-2.0); EOSINOPHIL # 0.1 TH/MM3 (0-0.4); EOSINOPHIL % 0.6 % (0.0-4.0); HEMOGLOBIN 12.9 GM/DL (11.6-15.3); LYMPH % 32.2 % (9.0-44.0); LYMPHOCYTE # 2.8 TH/MM3 (1.0-4.8); MEAN CELL VOLUME 84.8 FL (80.0-100.0); MEAN CORPUSCULAR HEMOGLOBIN 28.7 PG (27.0-34.0); MEAN CORPUSCULAR HGB CONC 33.9 % (32.0-36.0); MEAN PLATELET VOLUME 9.8 FL (7.0-11.0); MONO % 6.8 % (0.0-8.0); MONOCYTE # 0.6 TH/MM3 (0-0.9); NEUT % 58.2 % (16.0-70.0); PLATELET COUNT 214 TH/MM3 (150-450); RED BLOOD COUNT 4.48 MIL/MM3 (4.00-5.30); RED CELL DISTRIBUTION WIDTH 14.1 % (11.6-17.2); WHITE BLOOD COUNT 8.7 TH/MM3 (4.0-11.0)
--- NOTE | 2018-01-18 14:14 | RADRPT ---
EXAM DATE/TIME: 01/18/2018 13:58 [facility] COMPARISON: CT BRAIN W/O CONTRAST, November 23, 2017, 21:34. INDICATIONS : Right side headache, clenched jaw, difficulty swallowing. RADIATION DOSE: 35.14 CTDIvol (mGy) MEDICAL HISTORY : Cerebrovascular disease. Seizures. SURGICAL HISTORY : Hysterectomy. Cholecystectomy. ENCOUNTER: Initial ACUITY: 1 day PAIN SCALE: 4/10 LOCATION: Right cranial TECHNIQUE: Multiple contiguous axial images were obtained of the head. Using automated exposure control and adj ustment of the mA and/or kV according to patient size, radiation dose was kept as low as reasonably a chievable to obtain optimal diagnostic quality images. DICOM format image data is available electro nically for review and comparison. FINDINGS: CEREBRUM: The ventricles are normal for age. No evidence of midline shift, mass lesion, hemorrhage or acute in farction. No extra-axial fluid collections are seen. POSTERIOR FOSSA: The cerebellum and brainstem are intact. The 4th ventricle is midline. The cerebellopontine angle i s unremarkable. EXTRACRANIAL: The visualized portion of the orbits is intact. SKULL: The calvaria is intact. No evidence of skull fracture. CONCLUSION: Negative for acute process Diego Richter MD FACR on January 18, 2018 at 14:13 Board Certified Radiologist. This report was verified electronically.
[2018-01-18 14:17] LABS: INTERNATIONAL NORMALIZED RATIO 1.1 RATIO
[2018-01-18 14:34] LABS: BICARBONATE 28.4 MEQ/L (21.0-32.0); CALCIUM 9.8 MG/DL (8.5-10.1); CREATININE 1.01 MG/DL (0.50-1.00)
[2018-01-18] MEDS ORDERED: GADODIAMIDE PF 287 MG/ML 20 ML VIAL (for RAD MRI) IVCONTRAST ONE (16:00)
--- NOTE | 2018-01-18 16:32 | RADRPT ---
EXAM DATE/TIME: 01/18/2018 15:39 [facility] COMPARISON: No previous studies available for comparison. INDICATIONS : Cephalgia. CONTRAST: 20 cc Omniscan (gadodiamide) IV MEDICAL HISTORY : None. SURGICAL HISTORY : Hysterectomy. Cholecystectomy. ENCOUNTER: Initial ACUITY: 1 day PAIN SCORE: 4/10 LOCATION: cranial TECHNIQUE: Multiplanar, multisequence MRI of the brain was performed both prior to and following the administrat ion of paramagnetic contrast. FINDINGS: CEREBRUM: The ventricles are normal for age. No evidence of midline shift, mass lesion, hemorrhage or acute in farction. No extraaxial fluid collections are seen. The pituitary gland and suprasellar cistern are normal in configuration. WHITE MATTER: No significant signal abnormalities are seen in the white matter. POSTERIOR FOSSA: The cerebellum and brainstem are intact. The 4th ventricle is midline. The cerebellopontine angle is unremarkable. The cerebellar tonsils are normal in position. DIFFUSION IMAGING: No focal areas of restricted diffusion are seen. No evidence of acute infarction. EXTRACRANIAL: The visualized portions of the orbits and paranasal sinuses are unremarkable. POST-CONTRAST: No abnormal areas of parenchymal or dural enhancement. No evidence of blood-brain barrier breakdown. CONCLUSION: Negative MRI of the brain. Diego Richter MD FACR on January 18, 2018 at 16:29 Board Certified Radiologist. This report was verified electronically.
--- NOTE | 2018-01-18 16:49 | RADRPT ---
EXAM DATE/TIME: 01/18/2018 15:39 [facility] COMPARISON: No previous studies available for comparison. INDICATIONS : Cephalgia. MEDICAL HISTORY : None. SURGICAL HISTORY : Hysterectomy. Cholecystectomy. ENCOUNTER: Initial ACUITY: 1 day PAIN SCORE: 4/10 LOCATION: cranial Please note a normal MRA of the brain does not entirely exclude the possibility of a small aneurysm, nor the possibility of distal intracranial vessel disease. TECHNIQUE: 3D time of flight MRA was performed. Source images, multiplanar STS MIP, and 3D volume MIP reconstru ctions were reviewed. FINDINGS: Moderate flow sclerotic vascular disease is evident. There is no aneurysm or major branch vessel occ lusion. Basilar artery is small. CONCLUSION: Moderate atherosclerotic vascular disease, negative for major branch vessel occlusion . Limited exam for small aneurysm. Diego Richter MD FACR on January 18, 2018 at 16:45 Board Certified Radiologist. This report was verified electronically.
--- NOTE | 2018-01-18 16:55 | RADRPT ---
EXAM DATE/TIME: 01/18/2018 15:39 [facility] COMPARISON: No previous studies available for comparison. INDICATIONS : Cephalgia. CONTRAST: 20 cc Omniscan (gadodiamide) IV MEDICAL HISTORY : None. SURGICAL HISTORY : Hysterectomy. Cholecystectomy. ENCOUNTER: Initial ACUITY: 1 day PAIN SCORE: 0/10 LOCATION: neck Percent stenosis is calculated using the diameter of the stenotic region over the diameter of the nor mal distal internal carotid artery. TECHNIQUE: Bolus infused MRA of the extracranial circulation was performed using a neurovascular coil. Post pro cessing was performed including rotating subvolume maximum intensity projections of each carotid jhonny ry, rotating full volume maximum intensity projections of both carotid arteries, sagittal and coronal sliding thin slab reformations of each carotid artery, and left oblique sliding thin slab reformatio n through the aortic arch to include the origin of the arch branch vessels. FINDINGS: AORTIC ARCH: There is a three vessel origin of the great vessels from the aorta. No evidence of ostial narrowing. RIGHT CAROTID: The common carotid artery is intact. The carotid bulb has a normal configuration without ulceration or narrowing. The internal carotid artery lumen is smooth without stenosis. The external carotid ar mana is intact. LEFT CAROTID: The common carotid artery is intact. The carotid bulb has a normal configuration without ulceration or narrowing. The internal carotid artery lumen is smooth without stenosis. The external carotid ar mana is intact. VERTEBRALS: The vertebral arteries have a symmetric diameter. No stenotic lesions are seen. CONCLUSION: Negative for hemodynamically significant stenosis. Both vertebral arteries are patent. Diego Richter MD FACR on January 18, 2018 at 16:53 Board Certified Radiologist. This report was verified electronically.
== END 2018-01-18 18:56 | disposition home or self-care (01) ==
LOC: NEPE 12:35
DX: F41.9 Anxiety disorder, unspecified (principal); J45.909 Unspecified asthma, uncomplicated; F31.9 Bipolar disorder, unspecified; F32.9 Major depressive disorder, single episode, unspecified; E78.00 Pure hypercholesterolemia, unspecified; E11.9 Type 2 diabetes mellitus without complications; K21.9 Gastro-esophageal reflux disease without esophagitis; F17.200 Nicotine dependence, unspecified, uncomplicated; Z86.73 Personal history of transient ischemic attack (TIA), and cerebral infarction without residual deficits
CPT/HCPCS: 70450; 70544; 70548; 70553; 80048; 85025; 85610; 99285; A9579

== ENCOUNTER 2018-03-10 08:10 | Observation (INO) | payer SELFPAY ==
[~2018-03-10] VITALS: Ht 165.1 cm; Wt 65.0 kg
[~2018-03-10 08:10] MED LIST changes: +amberen
[2018-03-10 08:17] VITALS: BP 130/82; PULSE 67; RESP 20; TEMP 98; O2SAT 100
[2018-03-10 08:30] VITALS: BP 129/78; PULSE 53; RESP 20; O2SAT 99
[2018-03-10 08:34] VITALS: O2SAT 100
[2018-03-10] MEDS ORDERED: ASPIRIN 81 MG CHEW TAB PO ONE (08:45)
[2018-03-10] MEDS ORDERED: SODIUM CHLORIDE 0.9% FLUSH 10 ML FLUSH IVF PRN (08:45)
[2018-03-10 09:21] LABS: AUTOMATED NEUTROPHIL # 3.8 TH/MM3 (1.8-7.7); BASOPHIL # 0.1 TH/MM3 (0-0.2); BASOPHIL % 0.8 % (0.0-2.0); EOSINOPHIL % 0.7 % (0.0-4.0); HEMATOCRIT 37.3 % (35.0-46.0); HEMOGLOBIN 12.4 GM/DL (11.6-15.3); LYMPHOCYTE # 1.9 TH/MM3 (1.0-4.8); MEAN CORPUSCULAR HEMOGLOBIN 28.5 PG (27.0-34.0); MEAN CORPUSCULAR HGB CONC 33.1 % (32.0-36.0); MEAN PLATELET VOLUME 9.7 FL (7.0-11.0); MONO % 6.6 % (0.0-8.0); MONOCYTE # 0.4 TH/MM3 (0-0.9); NEUT % 60.9 % (16.0-70.0); PLATELET COUNT 200 TH/MM3 (150-450); RED BLOOD COUNT 4.34 MIL/MM3 (4.00-5.30); RED CELL DISTRIBUTION WIDTH 14.1 % (11.6-17.2); WHITE BLOOD COUNT 6.2 TH/MM3 (4.0-11.0)
--- NOTE | 2018-03-10 09:25 | RADRPT ---
EXAM DATE/TIME: 03/10/2018 09:03 [facility] COMPARISON: No previous studies available for comparison. INDICATIONS : Chest pain. MEDICAL HISTORY : None. SURGICAL HISTORY : None. ENCOUNTER: Initial ACUITY: 1 day PAIN SCORE: 11/27 LOCATION: Bilateral chest FINDINGS: PA and lateral views of the chest demonstrate the lungs to be symmetrically aerated without evidence of mass, infiltrate or effusion. The cardiomediastinal contours are unremarkable. Osseous structure s are intact. CONCLUSION: 1. No acute cardiopulmonary disease. aJxson Bauer MD on March 10, 2018 at 9:22 Board Certified Radiologist. This report was verified electronically.
--- NOTE | 2018-03-10 09:41 | PD ---
HPI . Chest pain Chief Complaint: Chest Pain Time Seen by Provider: 08:28 Travel History International Travel<30 days: No Contact w/Intl Traveler<30days: No Traveled to known affect area: No History of Present Illness HPI Patient presents with chief complaint of chest pain. It is midsternal. Onset was at 5 PM last night. She describes it as electricity and rates it 6/10. There have been no modifying factors. She states that she has tried taking a couple of hot showers with no relief of her symptoms. Symptoms are associated with bilateral shoulder pain and bilateral arm numbness. PFSH Past Medical History Asthma: Yes Bipolar Disorder: Yes Anxiety: Yes Depression: Yes Heart Rhythm Problems: No Cardiac Catheterization: No Cardiovascular Problems: No High Cholesterol: Yes Congestive Heart Failure: No Cerebrovascular Accident: Yes Diabetes: No Diminished Hearing: No Gastrointestinal Disorders: Yes (COLITIS) GERD: Yes Gout: Yes Headaches: Yes Heparin Induced Thrombocytopen: No Hypertension: No Kidney Stones: No Psychiatric: Yes Migraines: Yes Seizures: Yes ?: Not Menopausal: Yes : 5 Para: 4 Miscarriage: 1 Ectopic : Yes Tubal Ligation: Yes (1999) Past Surgical History Cholecystectomy: Yes (2010) Coronary Artery Bypass Graft: No Hysterectomy: Yes Tonsillectomy: Yes Other Surgery: Yes (RIGHT HAND SURG, BLOOD CLOT REMOVED FROM RIGHT WRIST) Family History Family Myocardial Infarction: Yes Social History Alcohol Use: Yes (OCCASSIONALLY) Tobacco Use: Yes (1 pack per week) Substance Use: No Allergies-Medications (Allergen,Severity, Reaction): Coded Allergies: gabapentin (Verified Allergy, Severe, HIVES, dystonic reaction, 03/10/18) haloperidol (Verified Allergy, Severe, Hives, 03/10/18) olanzapine (Verified Allergy, Severe, SOB, 03/10/18) penicillin G (Verified Allergy, Severe, Anaphylaxis, 03/10/18) sertraline (Verified Allergy, Severe, SOB, 03/10/18) aripiprazole (Verified Allergy, Intermediate, SOB, 03/10/18) citalopram (Verified Allergy, Intermediate, SOB, 03/10/18) venlafaxine (Verified Allergy, Unknown, SOB, 03/10/18) Reported Meds & Prescriptions Reported Meds & Active Scripts Active Keppra (Levetiracetam) 500 Mg Tab 500 Mg PO BID Reported [amberen] Effexor (Venlafaxine HCl) 37.5 Mg Tab 37.5 Mg PO Q12H Abilify (Aripiprazole) 10 Mg Tab 10 Mg PO DAILY Omeprazole 20 Mg Tab 20 Mg PO BID Review of Systems Except as stated in HPI: all other systems reviewed are Neg Physical Exam Narrative GENERAL: Awake and alert in no acute distress. SKIN: warm/dry. Normal color and turgor. HEAD: Normocephalic. Atraumatic. EYES: Pupils equal and round. No scleral icterus. No injection or drainage. ENT: No nasal bleeding or discharge. Mucous membranes pink and moist. NECK: Trachea midline. Full range of motion without pain.. CARDIOVASCULAR: Regular rate and rhythm. Heart sounds are normal. RESPIRATORY: No accessory muscle use. Clear to auscultation. Breath sounds equal bilaterally. Chest wall is nontender. MUSCULOSKELETAL: No obvious deformities. NEUROLOGICAL: Awake and alert. No obvious cranial nerve deficits. Motor grossly within normal limits. Normal speech. PSYCHIATRIC: Appropriate mood and affect; insight and judgment normal. Data Data Last Documented VS Vital Signs Date Time Temp Pulse Resp B/P (MAP) Pulse Ox O2 Delivery O2 Flow Rate FiO2 03/10/18 08:34 100 Room Air 03/10/18 08:30 20 03/10/18 08:30 53 03/10/18 08:17 98.0 Orders Orders Electrocardiogram (03/10/18 08:32) Basic Metabolic Panel (Bmp) (03/10/18 08:32) Complete Blood Count With Diff (03/10/18 08:32) Magnesium (Mg) (03/10/18 08:32) Troponin I (03/10/18 08:32) Ecg Monitoring (03/10/18 08:32) Iv Access Insert/Monitor (03/10/18 08:32) Oximetry (03/10/18 08:32) Aspirin Chew (Aspirin Chew) (03/10/18 08:45) Sodium Chloride 0.9% Flush (Ns Flush) (03/10/18 08:45) Chest, Pa & Lat (03/10/18 08:32) Labs Laboratory Tests Test 03/10/18 08:45 White Blood Count 6.2 TH/MM3 Red Blood Count 4.34 MIL/MM3 Hemoglobin 12.4 GM/DL Hematocrit 37.3 % Mean Corpuscular Volume 86.0 FL Mean Corpuscular Hemoglobin 28.5 PG Mean Corpuscular Hemoglobin Concent 33.1 % Red Cell Distribution Width 14.1 % Platelet Count 200 TH/MM3 Mean Platelet Volume 9.7 FL Neutrophils (%) (Auto) 60.9 % Lymphocytes (%) (Auto) 31.0 % Monocytes (%) (Auto) 6.6 % Eosinophils (%) (Auto) 0.7 % Basophils (%) (Auto) 0.8 % Neutrophils # (Auto) 3.8 TH/MM3 Lymphocytes # (Auto) 1.9 TH/MM3 Monocytes # (Auto) 0.4 TH/MM3 Eosinophils # (Auto) 0.0 TH/MM3 Basophils # (Auto) 0.1 TH/MM3 CBC Comment DIFF FINAL Differential Comment Blood Urea Nitrogen 17 MG/DL Creatinine 0.87 MG/DL Random Glucose 82 MG/DL Calcium Level 9.8 MG/DL Magnesium Level 1.8 MG/DL Sodium Level 140 MEQ/L Potassium Level 4.0 MEQ/L Chloride Level 107 MEQ/L Carbon Dioxide Level 28.0 MEQ/L Anion Gap 5 MEQ/L Estimat Glomerular Filtration Rate 69 ML/MIN Troponin I LESS THAN 0.02 NG/ML MDM Medical Decision Making Medical Screen Exam Complete: Yes Emergency Medical Condition: Yes Medical Record Reviewed: Yes (Patient has been seen here several times in the past with similar complaints. She was admitted to the chest pain center in September and was ruled out by enzymes. No stress test was done. Her pain was felt to be atypical. The patient has also been evaluated from a cerebrovascular standpoint. She has had a recent normal MRI of her neck and brain. She has had interrogation of her cervical spine with a CT in the recent past. She has some mild arthrosis but no nerve impingement.) Interpretation(s) EKG shows normal sinus rhythm with no acute ischemic changes. Differential Diagnosis Differential diagnosis of chest pain includes but is not limited to musculoskeletal pain, pulmonary embolism, acute coronary syndrome, pneumonia, pleurisy Narrative Course Patient presents with chief complaint of chest pain which started at 7:00 last night. Risk factors include hyperlipidemia and tobacco abuse. However, she has had several previous similar presentations and has had an admission to the chest pain center for same. CBC & BMP Diagram 03/10/18 08:45 Calcium Level 9.8, Magnesium Level 1.8 Troponin less than 0.02 Last Impressions Chest X-Ray 03/10/18 0832 Signed Impressions: Service Date/Time: Saturday, March 10, 2018 09:03 - CONCLUSION: 1. No acute cardiopulmonary disease. Jaxson Bauer MD The patient is interested in staying in the [facility] for further evaluation. Diagnosis Primary Impression: Chest pain Qualified Codes: R07.9 - Chest pain, unspecified Admitting Information Admitting Physician Requests: Observation Disposition: 01 DISCHARGE HOME Condition: Stable Gabriella Haas MD Mar 10, 2018 09:41
[2018-03-10 09:42] LABS: TROPONIN I LESS THAN 0.02 NG/ML (0.02-0.05)
[2018-03-10 09:47] LABS: BLOOD UREA NITROGEN 17 MG/DL (7-18); CALCIUM 9.8 MG/DL (8.5-10.1); CHLORIDE 107 MEQ/L (98-107); CREATININE 0.87 MG/DL (0.50-1.00); GLOMERULAR FILTRATION RATE 69 ML/MIN (>89); GLUCOSE,RANDOM 82 MG/DL (74-106); MAGNESIUM 1.8 MG/DL (1.5-2.5); SODIUM (NA) 140 MEQ/L (136-145)
--- NOTE | 2018-03-10 11:11 | HHI.HP ---
HPI Primary Care Physician Unknown Chief Complaint Chest pain History of Present Illness This is a 47-year-old female that presents to ED via private vehicle with complaint of chest discomfort. States she has had chest pains for years. She states that when she has the chest pain will last for a few days constantly. She is to worsen when she leans forward. He is very also is tender. She became concerned when the discomfort was more intense yesterday. Began around 5 :00 yesterday afternoon is still present. Is worsened when she leans forward. It was tender to touch when the ER physician examined her. Denies associated shortness of breath, diaphoresis. She was a little nauseous yesterday. Denies personal history of CAD but states runs in her family. Her mother had an GA in her 50s. She has a brother who has had stents in his late 40s. Patient smokes cigarettes but states she has never smoked much. States she is averaged maybe 1 cigarette per day for over 25 years. Cannot recall prior stress test or heart catheterization. Review of Systems General: Patient denies fevers, chills recent, and recent travel HEENT: Patient denies headache, sore throat, difficulty swallowing. Cardiovascular: Has the chest discomfort as mentioned above. Denies sensation of heart beating rapidly or irregularly. No syncope. Denies diaphoresis. Respiratory: Denies shortness of breath or inspirational chest discomfort. Denies coughing wheezing or hemoptysis. GI: She was nauseous briefly yesterday. Patient denies vomiting, diarrhea, constipation, abdominal pain, bloody stools. Musculoskeletal: Patient denies joint pain or edema. Denies calf pain or edema. Neurovascular: Patient denies numbness, tingling, weakness in extremities. Denies headache. Endocrine: Denies polyuria and polydipsia. Hematologic: Denies easy bruising. Skin: Denies rash or itching. Past Family Social History Allergies: Coded Allergies: gabapentin (Verified Allergy, Severe, HIVES, dystonic reaction, 03/10/18) haloperidol (Verified Allergy, Severe, Hives, 03/10/18) olanzapine (Verified Allergy, Severe, SOB, 03/10/18) penicillin G (Verified Allergy, Severe, Anaphylaxis, 03/10/18) sertraline (Verified Allergy, Severe, SOB, 03/10/18) aripiprazole (Verified Allergy, Intermediate, SOB, 03/10/18) citalopram (Verified Allergy, Intermediate, SOB, 03/10/18) venlafaxine (Verified Allergy, Unknown, SOB, 03/10/18) Past Medical History Seizure disorder. Bipolar disorder. GERD., Diabetes, and CAD. Past Surgical History Hysterectomy. Tonsillectomy. Reported Medications Reported Meds & Active Scripts Active Keppra (Levetiracetam) 500 Mg Tab 500 Mg PO BID Reported [amberen] Effexor (Venlafaxine HCl) 37.5 Mg Tab 37.5 Mg PO Q12H Abilify (Aripiprazole) 10 Mg Tab 10 Mg PO DAILY Omeprazole 20 Mg Tab 20 Mg PO BID Active Ordered Medications Current Medications Medications (Trade) Dose Ordered Sig/Berna Route Start Time Stop Time Status Last Admin (NS Flush) 2 ml UNSCH PRN IVF 03/10/18 08:45 Family History She has a brother that had a stent in his late 40s. Her mother had an GA in her early 50s. Social History Smokes approximately 1 cigarette per day for about 25 years. Has a rare beer. Denies illicit drugs. She works in housekeeping. Physical Exam Vital Signs Vital Signs Date Time Temp Pulse Resp B/P (MAP) Pulse Ox O2 Delivery O2 Flow Rate FiO2 03/10/18 08:34 100 Room Air 03/10/18 08:30 20 99 Room Air 03/10/18 08:30 53 20 129/78 (95) 99 Room Air 03/10/18 08:17 98.0 67 20 130/82 (98) 100 Physical Exam GENERAL: This is a well-nourished, well-developed patient, in no apparent distress. Patient speaks in clear complete sentences. Patient is pleasant. HEENT: Head is atraumatic and normocephalic. Neck is supple without lymphadenopathy and trachea is midline. No JVD or carotid bruits. CARDIOVASCULAR: Regular rate and rhythm without murmurs, gallops, or rubs. RESPIRATORY: Clear to auscultation. Breath sounds equal bilaterally. No wheezes , rales, or rhonchi. Chest wall is tender over the sternum which is the discomfort that has brought her to the ED. No use of accessory muscles. GASTROINTESTINAL: Abdomen is nontender, nondistended. Abdomen soft. No obvious pulsatile mass or bruit. No CVA tenderness. Strong femoral pulses bilaterally. Normal bowel sounds in all quadrants. MUSCULOSKELETAL: Patient is moving upper and lower extremities freely. No calf tenderness or edema, no Homans sign. Strong pulses in upper and lower extremities. NEUROLOGICAL: Patient is alert and oriented. Cranial nerves 2-12 are grossly intact. No focal deficits and speech is clear. SKIN: No rash and turgor is normal. Laboratory Laboratory Tests Test 03/10/18 08:45 White Blood Count 6.2 Red Blood Count 4.34 Hemoglobin 12.4 Hematocrit 37.3 Mean Corpuscular Volume 86.0 Mean Corpuscular Hemoglobin 28.5 Mean Corpuscular Hemoglobin Concent 33.1 Red Cell Distribution Width 14.1 Platelet Count 200 Mean Platelet Volume 9.7 Neutrophils (%) (Auto) 60.9 Lymphocytes (%) (Auto) 31.0 Monocytes (%) (Auto) 6.6 Eosinophils (%) (Auto) 0.7 Basophils (%) (Auto) 0.8 Neutrophils # (Auto) 3.8 Lymphocytes # (Auto) 1.9 Monocytes # (Auto) 0.4 Eosinophils # (Auto) 0.0 Basophils # (Auto) 0.1 CBC Comment DIFF FINAL Differential Comment Blood Urea Nitrogen 17 Creatinine 0.87 Random Glucose 82 Calcium Level 9.8 Magnesium Level 1.8 Sodium Level 140 Potassium Level 4.0 Chloride Level 107 Carbon Dioxide Level 28.0 Anion Gap 5 Estimat Glomerular Filtration Rate 69 Troponin I LESS THAN 0.02 Result Diagram: 03/10/18 0845 03/10/18 0845 Imaging Last 48 hours Impressions Chest X-Ray 03/10/18 0832 Signed Impressions: Service Date/Time: Saturday, March 10, 2018 09:03 - CONCLUSION: 1. No acute cardiopulmonary disease. Jaxson Bauer MD Course EKGs: Initial EKG is sinus bradycardia rate of [address] segment depressions or elevations. Caprini VTE Risk Assessment Caprini VTE Risk Assessment: No/Low Risk (score <= 1) Caprini Risk Assessment Model Point Value = 1 Point Value = 2 Point Value = 3 Point Value = 5 Age 41-60 Minor surgery BMI > 25 kg/m2 Swollen legs Varicose veins or History of unexplained or recurrent spontaneous Oral contraceptives or hormone replacement Sepsis (< 1 month) Serious lung disease, including pneumonia (< 1 month) Abnormal pulmonary function Acute myocardial infarction Congestive heart failure (< 1 month) History of inflammatory bowel disease Medical patient at bed rest Age 61-74 Arthroscopic surgery Major open surgery (> 45 min) Laparoscopic surgery (> 45 min) Malignancy Confined to bed (> 72 hours) Immobilizing plaster cast Central venous access Age >= 75 History of VTE Family history of VTE Factor V Leiden Prothrombin [id number] Lupus anticoagulant Anticardiolipin antibodies Elevated serum homocysteine Heparin-induced thrombocytopenia Other congenital or acquired thrombophilia Stroke (< 1 month) Elective arthroplasty Hip, pelvis, or leg fracture Acute spinal cord injury (< 1 month) Prophylaxis Regimen Total Risk Factor Score Risk Level Prophylaxis Regimen 0-1 Low Early ambulation 2 Moderate Order ONE of the following: *Sequential Compression Device (SCD) *Heparin 5000 units SQ BID 3-4 Higher Order ONE of the following medications: *Heparin 5000 units SQ TID *Enoxaparin/Lovenox 40 mg SQ daily (WT < 150 kg, CrCl > 30 mL/min) *Enoxaparin/Lovenox 30 mg SQ daily (WT < 150 kg, CrCl > 10-29 mL/min) *Enoxaparin/Lovenox 30 mg SQ BID (WT < 150 kg, CrCl > 30 mL/min) AND/OR *Sequential Compression Device (SCD) 5 or more Highest Order ONE of the following medications: *Heparin 5000 units SQ TID (Preferred with Epidurals) *Enoxaparin/Lovenox 40 mg SQ daily (WT < 150 kg, CrCl > 30 mL/min) *Enoxaparin/Lovenox 30 mg SQ daily (WT < 150 kg, CrCl > 10-29 mL/min) *Enoxaparin/Lovenox 30 mg SQ BID (WT < 150 kg, CrCl > 30 mL/min) AND *Sequential Compression Device (SCD) Assessment and Plan Assessment and Plan * Chest pain: Patient has had first set of cardiac enzymes and EKGs for ruling out purposes. Patient will be evaluated by Dr. Jaxson Goldsmith of cardiology in the chest pain center. She likely will have a Francisco protocol ETT and if nonischemic will be discharged home if stress test is nonischemic with instructions to follow-up with PCP. Return to ED for interval issues. * Seizure disorder: Continue medication. * Tobacco abuse: Patient has been counseled importance of smoking cessation. * GERD: Continue medication. * Bipolar disorder: Continue medication. * Hyperlipidemia: Patient states she has history of hyperlipidemia but was never prescribed medication. She is to further discuss this with her PCP. Patient is stable at this time. She is agreeable to this plan. Javier Bose Mar 10, 2018 11:11
[2018-03-10] MEDS ORDERED: ACETAMINOPHEN 500 MG CPLT PO PRN (11:15)
[2018-03-10] MEDS ORDERED: ONDANSETRON HCL 4 MG/2 ML VIAL IV PUSH PRN (11:15)
[2018-03-10] MEDS ORDERED: ACETAMINOPHEN/HYDROcodone 325 MG/7.5 MG TAB PO PRN (11:15)
--- NOTE | 2018-03-10 12:48 | TR ---
Date Performed: 03/10/2018 Time Performed: 11:32:03 DOCTOR: Jaxson Goldsmith DRUG LIST: CLINICAL HISTORY: REASON FOR TEST: REASON FOR ENDING: OBSERVATION: CONCLUSION: ANKUR PROTOCOL ETT. THE CONSTANT CHEST DISCOMFORT DID NOT CHANGE DURING STRESS TEST. TEST STOPPED AFTER EXCEEDING GOAL HR SECONDARY TO SOB AND LEG FATIGUE. GOOD EXERCISE TOLERANCE.Maxim um GB=025 % Max HR Achieved=88.0% Maximum XW=678/70 Total Exercise Time=9:30 COMMENTS: Patient exercised using the Ankur protocol. No electrocardiographic changes were seen to suggest ischemia. Hemodynamic response to exercise was normal. No significant arrhythmia was prese nt.
[2018-03-10 13:07] VITALS: BP 121/70; PULSE 53; RESP 16; TEMP 97.9; O2SAT 97
--- NOTE | 2018-03-10 15:35 | HHI.DCPOC ---
Discharge Care Plan Diagnosis: (1) Chest pain (2) Tobacco abuse (3) Hyperlipidemia Goals to Promote Your Health YOU NEED TO DISCUSS TAKING CHOLESTEROL MEDICATIONS WITH YOUR DOCTOR. * To prevent worsening of your condition and complications * To maintain your health at the optimal level Directions to Meet Your Goals Take your medications as prescribed Follow your dietary instruction Follow activity as directed Keep your appointments as scheduled Take your immunizations and boosters as scheduled If your symptoms worsen call your PCP, if no PCP go to Urgent Care Center or Emergency Room Smoking is Dangerous to Your Health. Avoid second hand smoke Call the 24-hour hour crisis hotline for domestic abuse at Javier Bose Mar 10, 2018 15:35
--- NOTE | 2018-03-10 21:00 | EKG ---
Date Performed: 03/10/2018 Time Performed: 08:29:35 PTAGE: 47 years EKG: SINUS BRADYCARDIA BORDERLINE ECG PREVIOUS TRACING : 11/23/2017 19.43 Compared to previous tracing, heart rate has decreased. DOCTOR: Roque Day Interpretating Date/Time 03/10/2018 20:59:11
[2018-03-11] MEDS ORDERED: ASPIRIN 325 MG TAB PO SCH (09:00)
== END 2018-03-10 16:59 | disposition home or self-care (01) ==
LOC: NEPC 08:10 → NEDA 10:15 → NEPFCDU 11:55
PROVIDERS: ADMIT Internal Medicine Cardiovascular Disease; ATTEND Internal Medicine Cardiovascular Disease
DX: R07.89 Other chest pain (principal); G40.909 Epilepsy, unspecified, not intractable, without status epilepticus; R11.0 Nausea; R00.1 Bradycardia, unspecified; R20.0 Anesthesia of skin; I25.10 Atherosclerotic heart disease of native coronary artery without angina pectoris; E78.5 Hyperlipidemia, unspecified; E11.9 Type 2 diabetes mellitus without complications; K21.9 Gastro-esophageal reflux disease without esophagitis; F31.9 Bipolar disorder, unspecified; F17.210 Nicotine dependence, cigarettes, uncomplicated; Z79.899 Other long term (current) drug therapy; Z82.49 Family history of ischemic heart disease and other diseases of the circulatory system
CPT/HCPCS: 71046; 80048; 83735; 84484; 85025; 93005; 93017; 99285; G0378

== ENCOUNTER 2018-10-17 14:50 | Observation (INO) ==
[2018-10-17] MEDS ORDERED: Sod Chloride 0.9% Inj 1,000 ML IV.SIG ONE (15:07)
--- NOTE | 2018-10-17 15:35 | ED ---
HPI General Chief Complaint: Seizure Stated Complaint: Poss Seizure Time Seen by Provider: 10/17/18 14:54 Source: patient and EMS Mode of arrival: EMS Limitations: no limitations History of Present Illness HPI Narrative: Ms Jarrett is a 48 year old female who presents to the ED after a witnessed generalized seizure. The patient has a history of epilepsy since childhood, but was able to come off Kera 4 years ago and had not had a seizure since. She recently had a hemorrhoidectomy with subsequent UTI and surgical site infection, and has had 3 seizures since the infection began, 2 last week and 1 today. Today she was at work when she had a metallic taste in her mouth, vomited several hours later, and then subsequently had a seizure. Her coworkers described the seizure to EMS as tonic clonic but they were unsure how long it lasted. She states that normally she is only postictal for about 60 seconds but today she was confused and disoriented for several minutes before she realized what happened. She is currently complaining of 8/10 sharp neck pain , headache, nausea, dizziness, and vomited during the interview. The patient denies SOB, cough, chest pain, palpitations, numbness or tingling in the extremities, and weakness. She was a former cigarette smoker having quit 1 year ago after smoking 1 pack per week, but began smoking 1 cigarette per day two days ago. She denies alcohol or drug use and takes no medications other than omeprazole 20mg BID. Related Data Home Medications Medication Instructions Recorded Confirmed omeprazole 20 mg PO BID 06/03/18 10/17/18 Previous Rx's Medication Instructions Recorded hydrocodone-acetaminophen 1 tab PO Q6H PRN #10 tab 10/17/18 levetiracetam [Keppra] 500 mg PO BID #60 tab 10/17/18 Allergies Allergy/AdvReac Type Severity Reaction Status Date / Time gabapentin Allergy Severe HIVES, Verified 10/17/18 15:03 dystonic reaction haloperidol Allergy Severe Hives Verified 10/17/18 15:03 olanzapine Allergy Severe SOB Verified 10/17/18 15:03 penicillin G Allergy Severe Anaphylaxis Verified 10/17/18 15:03 sertraline Allergy Severe SOB Verified 10/17/18 15:03 aripiprazole Allergy Intermediate SOB Verified 10/17/18 15:03 citalopram Allergy Intermediate SOB Verified 10/17/18 15:03 venlafaxine Allergy Unknown SOB Verified 10/17/18 15:03 Review of Systems ROS: all other systems reviewed are negative [facility] Medical History Medical History Diverticulitis (Acute) FH: cholecystectomy (Acute) GERD (gastroesophageal reflux disease) (Acute) H/O: hysterectomy (Acute) Irritable bowel syndrome (Acute) Seizure (Acute) Surgical History Surgical History History of carpal tunnel surgery of right wrist (Acute) History of hemorrhoidectomy (Acute) Hx of tonsillectomy (Acute) Social History Social History Substance History: No History of Abuse Second Hand Smoke Exposure: No Smoking Status: Current some day smoker Tobacco Type: Cigarettes How Often Do You Have a Drink Containing Alcohol: Never Recent Travel in [facility] within the Last 8 Weeks: No Recent Out of Country Travel within the Last 8 Weeks: No Immunization History Tetanus Immunization: Unsure Exam Narrative Exam Narrative: GENERAL: Patient is a well developed well nourished female in mild distress. SKIN: Warm and dry. HEAD: Atraumatic. Normocephalic. Pain with palpation of the occiput and cervical vertebrae. No pain with palpation of the paraspinal musculature. Limited ROM of the neck secondary to pain. EYES: Pupils equal and round. No scleral icterus. No injection or drainage. ENT: No nasal bleeding or discharge. Mucous membranes pink and moist. Tongue is midline. No uvula deviation. NECK: Trachea midline. No JVD. CARDIOVASCULAR: Regular rate and rhythm. No murmurs rubs or gallops. RESPIRATORY: No accessory muscle use. Clear to auscultation. Breath sounds equal bilaterally. GASTROINTESTINAL: Abdomen soft, non-tender, nondistended. Hepatic and splenic margins not palpable. MUSCULOSKELETAL: Extremities without clubbing, cyanosis, or edema. No obvious deformities. Full ROM of the upper and lower extremities bilaterally. 2+ pulses bilaterally. NEUROLOGICAL: Awake and alert. No obvious cranial nerve deficits. Motor grossly within normal limits. Five out of 5 muscle strength in the arms and legs. Normal speech. PSYCHIATRIC: Appropriate mood and affect; insight and judgment normal. Course Initial Documented Vital Signs Temperature 98.7 F 10/17/18 15:06 Pulse Rate 83 10/17/18 15:06 Blood Pressure 133/78 10/17/18 15:06 Pulse Oximetry 99 10/17/18 15:06 Last Documented Vital Signs Temperature 98.7 F 10/17/18 15:06 Pulse Rate 80 10/17/18 18:20 Respiratory Rate 16 10/17/18 18:20 Blood Pressure 108/62 10/17/18 18:20 Pulse Oximetry 97 10/17/18 18:20 Medical Decision Making MARIALUISA Attestation MARIALUISA supervised visit: Yes Attestation: I, Dr. Motta, have reviewed the advance practice practitioner's documentation and am in agreement, met with the patient face to face, made the diagnosis, and the medical decision making was done by me. See his note for further details. Briefly this is a 48-year-old female with history of seizure disorder from alcohol syndrome, discontinued her Keppra 4 years ago and has not had a seizure until having hemorrhoid surgery 2 weeks ago. Since this time she has had 3 seizures. The most recent seizure was today while at work, and according to her coworker lasted for about a minute. Patient arrives slightly postictal, however is able to provide history. Her hemorrhoidectomy was complicated by urinary incontinence as well as infection for which she was on a course of Cipro. CBC and BMP were performed and are remarkable for slight anemia with a hemoglobin of 11.5. CT head shows no acute intracranial abnormality. CT cervical spine shows no acute traumatic injuries. Patient will be given a loading dose of Keppra here and restarted on her Keppra. She would likely be discharged home with outpatient follow-up with neurology and her primary care physician this week. About 30 minutes prior to the patient's potential discharge she began to complain of a heaviness feeling in her bilateral legs and thighs. She states it is difficult for her to lift them off of the bed. She has normal sensation in these extremities. On exam she does have a difficult time with flexion after bilateral hip and knee joints. There is no saddle anesthesia or lumbar spine step-off or tenderness. When attempting to ambulate the patient, she was unable to do so. She was on a second story apartment. She will be admitted for further treatment and evaluation. Patient may have rhabdomyolysis after the seizure. She also feels dizzy with vertiginous symptoms. MDM Narrative Medical decision making narrative: 48 yo female here for evaluation of seizure. Labs and imaging ordered. Patient put on cervical collar due to neck pain and possible injury. Given ativan IV. Labs and imaging showed no sign of acute disease. My attending Dr Motta evaluated the patient and recommends discharge. Will treat with keppra. Given toradol and loading dose of keppra here. Will discharge patient with keppra 500 mg BID per my attendings recommendations. F/u with neurologist. See ED if worst. Short prescription for lortab given for pain as patient complains of pain. Told to use only if needed. EFORCE queried. Before patient could be discharged she was assessed as she stated her dizziness had worsened and she stated she had weakness to her legs. An attempt was made to have her stand with help with no success and patient did not took one step before she had to be helped back to her stretcher. She lives alone and cannot ambulate. Because of this will admit. Unclear as to reason for weakness to the lower legs. I suspect this might be related to her seizures, but as she did fell will do MRIs of Brain and spine to rule out nerve injury. Patient agrees with admission. Discussed case with Dr Motta who agrees. Dr hastings agrees admission to his service. Medical Screen Exam Complete: Yes Emergency Medical Condition: Yes Differential Diagnosis Differential Diagnosis: seizure vs seizure disorder vs head injury vs neck injury Medical Records Medical records reviewed: Yes I reviewed the patient's medical records. Lab Data Lab results reviewed: Yes I reviewed the patient's lab results. Result diagrams: 10/17/18 15:30 10/17/18 15:30 Lab Results 10/17/18 10/17/18 10/17/18 Range/Units 15:30 15:30 15:30 WBC 8.3 (4.0-11.0) th/mm3 RBC 4.02 (4.00-5.30) mil/mm3 Hgb 11.5 L (11.6-15.3) gm/dL Hct 34.4 L (35.0-46.0) % MCV 85.6 (80.0-100.0) fL MCH 28.5 (27.0-34.0) pg MCHC 33.3 (32.0-36.0) % RDW 13.7 (11.6-17.2) % Plt Count 253 D (150-450) th/mm3 MPV 8.8 (7.0-11.0) fL Neut % (Auto) 62.4 (16.0-70.0) % Lymph % (Auto) 31.2 (9.0-44.0) % [place] % (Auto) 4.7 (0.0-8.0) % Eos % (Auto) 0.6 (0.0-4.0) % Baso % (Auto) 1.1 (0.0-2.0) % Neut # (Auto) 5.1 (1.8-7.7) th/mm3 Lymph # (Auto) 2.6 (1.0-4.8) th/mm3 [place] # (Auto) 0.4 (0.0-0.9) th/mm3 Eos # (Auto) 0.1 (0.0-0.4) th/mm3 Baso # (Auto) 0.1 (0.0-0.2) th/mm3 WBC Differential . Differential Comment Auto diff final Sodium 142 (136-145) meq/L Potassium 4.2 (3.5-5.1) meq/L Chloride 109 H (98-107) meq/L Carbon Dioxide 24.9 (21.0-32.0) meq/L Anion Gap 8 (5-15) meq/L BUN 12 (7-18) mg/dL Creatinine 0.96 (0.50-1.00) mg/dL Estimated GFR 62 L (>89) mL/min Random Glucose 88 (74-106) mg/dL Calcium 8.6 (8.5-10.1) mg/dL Magnesium 1.8 (1.5-2.5) mg/dL Total Creatine Kinase (26-192) U/L Urine Color Straw (Yellw/Straw) Urine Clarity Clear (Clear) Urine pH 6.0 (5.0-8.5) Ur Specific [place] 1.005 (1.002-1.035) Urine Protein Negative (Neg-Trace) mg/dL Urine Glucose (UA) Negative (Negative) mg/dL Urine Ketones Negative (Negative) mg/dL Urine Occult Blood Negative (Negative) Urine Nitrate Negative (Negative) Urine Bilirubin Negative (Negative) Urine Urobilinogen Less than 2 (Less than 2) mg/dL Ur Leukocyte Esterase Negative (Negative) Urine WBC Less than 1 (0-5) /hpf Ur Squamous Epith Cells 1 (0-5) /hpf Micro UA Comment Culture not ind Ur Microscopic Review Not Reportable Urine Culture Comments Culture not ind Urine Opiates Screen (Neg) Ur Barbiturates Screen (Neg) Ur Amphetamines Screen (Neg) U Benzodiazepines Scrn (Neg) Urine Cocaine Screen (Neg) U Cannabinoids Screen (Neg) Serum Alcohol Less than 3 (0-5) mg/dL 10/17/18 10/17/18 Range/Units 15:30 15:30 WBC (4.0-11.0) th/mm3 RBC (4.00-5.30) mil/mm3 Hgb (11.6-15.3) gm/dL Hct (35.0-46.0) % MCV (80.0-100.0) fL MCH (27.0-34.0) pg MCHC (32.0-36.0) % RDW (11.6-17.2) % Plt Count (150-450) th/mm3 MPV (7.0-11.0) fL Neut % (Auto) (16.0-70.0) % Lymph % (Auto) (9.0-44.0) % [place] % (Auto) (0.0-8.0) % Eos % (Auto) (0.0-4.0) % Baso % (Auto) (0.0-2.0) % Neut # (Auto) (1.8-7.7) th/mm3 Lymph # (Auto) (1.0-4.8) th/mm3 [place] # (Auto) (0.0-0.9) th/mm3 Eos # (Auto) (0.0-0.4) th/mm3 Baso # (Auto) (0.0-0.2) th/mm3 WBC Differential Differential Comment Sodium (136-145) meq/L Potassium (3.5-5.1) meq/L Chloride (98-107) meq/L Carbon Dioxide (21.0-32.0) meq/L Anion Gap (5-15) meq/L BUN (7-18) mg/dL Creatinine (0.50-1.00) mg/dL Estimated GFR (>89) mL/min Random Glucose (74-106) mg/dL Calcium (8.5-10.1) mg/dL Magnesium (1.5-2.5) mg/dL Total Creatine Kinase 110 (26-192) U/L Urine Color (Yellw/Straw) Urine Clarity (Clear) Urine pH (5.0-8.5) Ur Specific [place] (1.002-1.035) Urine Protein (Neg-Trace) mg/dL Urine Glucose (UA) (Negative) mg/dL Urine Ketones (Negative) mg/dL Urine Occult Blood (Negative) Urine Nitrate (Negative) Urine Bilirubin (Negative) Urine Urobilinogen (Less than 2) mg/dL Ur Leukocyte Esterase (Negative) Urine WBC (0-5) /hpf Ur Squamous Epith Cells (0-5) /hpf Micro UA Comment Ur Microscopic Review Urine Culture Comments Urine Opiates Screen Neg (Neg) Ur Barbiturates Screen Neg (Neg) Ur Amphetamines Screen Neg (Neg) U Benzodiazepines Scrn Neg (Neg) Urine Cocaine Screen Neg (Neg) U Cannabinoids Screen Neg (Neg) Serum Alcohol (0-5) mg/dL Imaging Data Attestation: I personally reviewed and interpreted this imaging study as follows : Radiologist's impression: Cervical Spine CT 10/17/18 15:12 CONCLUSION: No acute bony injury in the cervical spine Head CT 10/17/18 15:12 CONCLUSION: Negative CT Head non contrast. . Discharge Plan Discharge Disposition Patient Disposition: 30 Still Patient Discharge Condition Condition: Stable Discharge Details Anticipated Discharge Date: 10/17/18 Diagnosis: Generalized seizure, Dizziness, Unable to ambulate Physicians Team ED Provider: Dalton Motta ED Midlevel Provider: Dima Carmona Primary Care Provider: Lisa Blue, Rxs /Orders / Referrals /Forms Prescriptions: New levetiracetam [Keppra] 500 mg tablet 500 mg PO BID Qty: 60 RF: 0 hydrocodone-acetaminophen 5-325 mg tablet 1 tab PO Q6H PRN (Reason: pain) Qty: 10 RF: 0 No Action omeprazole 40 mg Capsule,Delayed Release(Dr/Ec) 20 mg PO BID RF: 0 Referrals: Lianna Kenyon MD [Physician] - 3 Days Heriberto Guillory MD, PhD [Physician] - 3 Days Stand Alone Forms: Work Release/Restrictions Discharge Instructions Patient Printed Instructions: Recurrent Seizures in Adults (ED) Additional Instructions: Take medication as prescribed. F/u with neurologist. See ED if worst. Take motrin for pain as needed. Do not drive or operate heavy machinery. No alcohol. Discharge Interventions Interventions: ED Discharge Assessment Last Done: 10/17/18 17:29 Vital Signs Last Done: 10/17/18 18:20 Status ED Status: Admitted Observation Patient
[2018-10-17 15:43] LABS: Baso # (Auto) 0.1 th/mm3 (0.0-0.2); Baso % (Auto) 1.1 % (0.0-2.0); Eos # (Auto) 0.1 th/mm3 (0.0-0.4); Eos % (Auto) 0.6 % (0.0-4.0); Hematocrit 34.4 % (35.0-46.0); Hemoglobin 11.5 gm/dL (11.6-15.3); Lymph # (Auto) 2.6 th/mm3 (1.0-4.8); Lymph % (Auto) 31.2 % (9.0-44.0); Mean Corpuscular HGB Conc 33.3 % (32.0-36.0); Mean Corpuscular Hemoglobin 28.5 pg (27.0-34.0); Mean Corpuscular Volume 85.6 fL (80.0-100.0); Mean Platelet Volume 8.8 fL (7.0-11.0); Mono # (Auto) 0.4 th/mm3 (0.0-0.9); Mono % (Auto) 4.7 % (0.0-8.0); Neut # (Auto) 5.1 th/mm3 (1.8-7.7); Neut % (Auto) 62.4 % (16.0-70.0); Platelet Count 253 th/mm3 (150-450); Red Blood Count 4.02 mil/mm3 (4.00-5.30); Red Cell Distribution Width 13.7 % (11.6-17.2); White Blood Count 8.3 th/mm3 (4.0-11.0)
[2018-10-17 15:53] LABS: Bilirubin,Urine Negative (Negative); Clarity,Urine Clear (Clear); Color,Urine Straw (Yellw/Straw); Glucose,Urine (UA) Negative (Negative); Leukocyte Esterase,Urine Negative (Negative); Nitrite,Urine Negative (Negative); Specific Gravity,Urine 1.005 (1.002-1.035); Squamous Epithelial Cell,Urine 1 /hpf (0-5)
--- NOTE | 2018-10-17 15:53 | CT ---
EXAM DATE: 10/17/2018 3:50 PM EST AGE/SEX: 48 years / Female INDICATIONS: Seizure today, dizziness. CLINICAL DATA: This is the patient's initial encounter. Patient reports that signs and symptoms have been present for 1 day and indicates a pain score of 7/10. MEDICAL/SURGICAL HISTORY: Seizures. Cholecystectomy. Hysterectomy. RADIATION DOSE: 56.35 CTDI (mGy) [place] [facility] [place]18[place]. . TECHNIQUE: CT of the head without contrast. Using automated exposure control and adjustment of the mA and/or kV according to patient size, radiation dose was kept as low as reasonably achievable to ob tain optimal diagnostic quality images. DICOM format image data is available electronically for revi ew and comparison. FINDINGS: Cerebrum: The ventricles are normal for age. No evidence of midline shift, mass lesion, hemorrhage or acute infarction. No extraaxial fluid collections are seen. Posterior Fossa: The cerebellum and brainstem are intact. The 4th ventricle is midline. The cerebe llopontine angle is unremarkable. Extracranial: The visualized portion of the orbits is intact. Skull: The calvaria is intact. No evidence of skull fracture. CONCLUSION: Negative CT Head non contrast. . Electronically signed by: Jesús Acuna MD 10/17/2018 3:52 PM EST
--- NOTE | 2018-10-17 15:56 | CT ---
EXAM DATE: 10/17/2018 3:51 PM EST AGE/SEX: 48 years / Female INDICATIONS: Seizure today, neck pain. CLINICAL DATA: This is the patient's initial encounter. Patient reports that signs and symptoms have been present for 1 day and indicates a pain score of 6/10. MEDICAL/SURGICAL HISTORY: Seizures. Cholecystectomy. Hysterectomy. RADIATION DOSE: 16.88 CTDI (mGy) COMPARISON: [facility] – [place], [place] CERVICAL SPINE W/O CONTRAST, 10/24/2017. . TECHNIQUE: Contiguous axial images were obtained using helical multirow detector technique. The vol umetric data was post-processed with multiplanar reconstruction in oblique axial, sagittal, and coron al planes. Using automated exposure control and adjustment of the mA and/or kV according to patient s ize, radiation dose was kept as low as reasonably achievable to obtain optimal diagnostic quality russ ges. DICOM format image data is available electronically for review and comparison. FINDINGS: Cervical spine alignment is stable and satisfactory. There is no evidence of cervical spine fracture. No bony canal or foraminal compromise is noted. There is no evidence of paraspinal hematoma. CONCLUSION: No acute bony injury in the cervical spine Electronically signed by: Jesús Acuna MD 10/17/2018 3:54 PM EST
[2018-10-17] MEDS ORDERED: Ketorolac Inj 30 MG/ML (IVP) Vial IV.PUSH ONE (16:02)
[2018-10-17 16:06] LABS: Amphetamine Screen,Urine Neg (Neg); Barbiturate Screen,Urine Neg (Neg); Cannabinoid Screen,Urine Neg (Neg); Cocaine Screen,Urine Neg (Neg)
[2018-10-17 16:13] LABS: Anion Gap 8 meq/L (5-15); Blood Urea Nitrogen 12 mg/dL (7-18); Calcium 8.6 mg/dL (8.5-10.1); Carbon Dioxide 24.9 meq/L (21.0-32.0); Chloride 109 meq/L (98-107); Glomerular Filtration Rate 62 mL/min (>89); Glucose,Random 88 mg/dL (74-106); Magnesium 1.8 mg/dL (1.5-2.5); Potassium 4.2 meq/L (3.5-5.1); Sodium 142 meq/L (136-145)
[2018-10-17 16:15] LABS: Opiate Screen,Urine Neg (Neg)
[2018-10-17] MEDS ORDERED: levETIRAcetam 1000mg/100mL Inj 100 ML IV.SIG ONE (16:17)
[2018-10-17] MEDS ORDERED: Acetaminophen 325 MG Tablet PO PRN (18:15)
[2018-10-17] MEDS ORDERED: Sod Chloride 0.9% Inj 1,000 ML IV.SIG SCH (18:15)
--- NOTE | 2018-10-17 19:05 | XR ---
EXAM DATE: 10/17/2018 6:49 PM EST AGE/SEX: 48 years / Female INDICATIONS: Cough. CLINICAL DATA: This is the patient's initial encounter. Patient reports that signs and symptoms have been present for 1 day and indicates a pain score of 0/10. MEDICAL/SURGICAL HISTORY: None. None. COMPARISON: [facility] – [place], CHEST PA & LAT, 03/10/2018. . FINDINGS: A single AP view of the chest demonstrates the lungs to be symmetrically aerated without evidence of mass, infiltrate or effusion. The cardiomediastinal contours are unremarkable. Osseous structures a re intact. CONCLUSION: No acute intrathoracic disease. Stable examination. Electronically signed by: Jose Crowell MD 10/17/2018 7:04 PM EST
--- NOTE | 2018-10-17 19:34 | MR ---
EXAM DATE: 10/17/2018 7:29 PM EST AGE/SEX: 48 years / Female INDICATIONS: . Difficulty walking post seizure today. Cephalgia CLINICAL DATA: This is the patient's initial encounter. Patient reports that signs and symptoms have been present for 1 day and indicates a pain score of 7/10. MEDICAL/SURGICAL HISTORY: Seizures. Cholecystectomy. Hysterectomy. Tubal ligation. Hand sx. COMPARISON: [facility], MRA CAROTIDS W CONTRAST, 01/18/2018. . TECHNIQUE: Multiplanar, multisequence MRI of the thoracic spine was performed. FINDINGS: Vertebrae: Normal vertebral body height. Homogeneous marrow signal. Alignment: Normal. Cord: Normal position and configuration. T1-T2: The thecal sac has a normal diameter. No evidence of disc bulge or protrusion. T2-T3: The thecal sac has a normal diameter. No evidence of disc bulge or protrusion. T3-T4: The thecal sac has a normal diameter. No evidence of disc bulge or protrusion. T4-T5: The thecal sac has a normal diameter. No evidence of disc bulge or protrusion. T5-T6: The thecal sac has a normal diameter. No evidence of disc bulge or protrusion. T6-T7: Is a small posterior central protrusion with mild mass effect on the anterior thecal sac. The re is slight flattening the anterior cord. No abnormal signal is noted. T7-T8: The thecal sac has a normal diameter. No evidence of disc bulge or protrusion. T8-T9: The thecal sac has a normal diameter. No evidence of disc bulge or protrusion. T9-T10: The thecal sac has a normal diameter. No evidence of disc bulge or protrusion. T10-T11: The thecal sac has a normal diameter. No evidence of disc bulge or protrusion. T11-T12: The thecal sac has a normal diameter. No evidence of disc bulge or protrusion. T12-L1: The thecal sac has a normal diameter. No evidence of disc bulge or protrusion. CONCLUSION: 1. Small posterior central protrusion at the T6-7 level with mild mass effect on the anterior thecal sac and slight flattening of the anterior cord with no abnormal signal. Electronically signed by: Hugo Calabrese MD 10/17/2018 7:32 PM EST
--- NOTE | 2018-10-17 19:47 | MR ---
EXAM DATE: 10/17/2018 7:37 PM EST AGE/SEX: 48 years / Female INDICATIONS: Vertigo. Post seizure activity today. CLINICAL DATA: This is the patient's initial encounter. Patient reports that signs and symptoms have been present for 1 day and indicates a pain score of 7/10. MEDICAL/SURGICAL HISTORY: Seizures. Cholecystectomy. Hysterectomy. Tubal ligation. Right wong d sx. [place] [facility] [place]/18/2018. . TECHNIQUE: Multiplanar, multisequence examination of the brain was performed without contrast. FINDINGS: Cerebrum: The ventricles are normal for age. No evidence of midline shift, mass lesion, hemorrhage or acute infarction. No extraaxial fluid collections are seen. The pituitary gland and suprasellar cistern are normal in configuration. White Matter: No significant signal abnormalities are seen in the white matter. Posterior Fossa: The cerebellum and brainstem are intact. The 4th ventricle is midline. The cerebel lopontine angle is unremarkable. The cerebellar tonsils are normal in position. Diffusion Imaging: No focal areas of restricted diffusion are seen. No evidence of acute infarction . Extracranial: The visualized portions of the orbits and paranasal sinuses are unremarkable. No new or significant changes are seen compared to the prior examination. CONCLUSION: 1. Unremarkable and stable MRI of the brain compared to the prior study. Electronically signed by: Jose Crowell MD 10/17/2018 7:45 PM EST
--- NOTE | 2018-10-17 19:49 | MR ---
EXAM DATE: 10/17/2018 7:38 PM EST AGE/SEX: 48 years / Female INDICATIONS: . Difficulty walking post seizure today. CLINICAL DATA: This is the patient's initial encounter. Patient reports that signs and symptoms have been present for 1 day and indicates a pain score of 7/10. MEDICAL/SURGICAL HISTORY: Seizures. Cholecystectomy. Hysterectomy. Tubal ligation. Hand/wris t sx. COMPARISON: No prior exams available for comparison. TECHNIQUE: Multiplanar, multisequence MRI of the lumbar spine was performed without contrast. Patie nt was scanned in a sitting position; neutral, flexion, and extension scans were performed in the sa gittal plane. FINDINGS: Vertebra: Homogeneous signal. Normal alignment. No compression fracture injuries are demonstrated. No abnormal bone marrow edema is demonstrated. There is some disc dehydration at L2-3 and L5-S1. Conus: Normal level and configuration. T12-L1: The thecal sac has a normal diameter. No evidence of disc bulge or protrusion. The neural foramina are patent bilaterally. L1-L2: The thecal sac has a normal diameter. No evidence of disc bulge or protrusion. The neural foramina are patent bilaterally. L2-L3: Mild broad-based bulging. The neural foramina are patent bilaterally. L3-L4: Mild left paracentral and left lateral bulging. The neural foramina are patent bilaterally. L4-L5: The thecal sac has a normal diameter. No evidence of disc bulge or protrusion. The neural foramina are patent bilaterally. L5-S1: The thecal sac has a normal diameter. No evidence of disc bulge or protrusion. The neural foramina are patent bilaterally. CONCLUSION: 1. Mild broad-based bulging L2-3. 2. Mild left paracentral and left lateral bulging L3-4. 3. Mild disc dehydration at L2-3 and L5-S1 Electronically signed by: Jose Crowell MD 10/17/2018 7:48 PM EST
--- NOTE | 2018-10-17 19:54 | MR ---
EXAM DATE: 10/17/2018 7:49 PM EST AGE/SEX: 48 years / Female INDICATIONS: Gait disorder. Post seizure today. CLINICAL DATA: This is the patient's initial encounter. Patient reports that signs and symptoms have been present for 1 day and indicates a pain score of 8/10. MEDICAL/SURGICAL HISTORY: Seizures. Cholecystectomy. Hysterectomy. Tubal ligation. Right wri st/hand sx. COMPARISON: No prior exams available for comparison. TECHNIQUE: Multiplanar, multisequence MRI examination of the cervical spine was performed without co ntrast. FINDINGS: Vertebrae: Normal vertebral body height. Homogeneous marrow signal. Alignment: Normal. Discs: There is mild desiccation. Cord: Normal configuration and signal. Post Fossa: The cerebellar tonsils are normal in position. C2-C3: The thecal sac has a normal configuration. There is no evidence of disc herniation or spinal canal stenosis. The neural foramina are patent bilaterally. C3-C4: The thecal sac has a normal configuration. There is no evidence of disc herniation or spinal canal stenosis. The neural foramina are patent bilaterally. C4-C5: The thecal sac has a normal configuration. There is no evidence of disc herniation or spinal canal stenosis. The neural foramina are patent bilaterally. C5-C6: The thecal sac has a normal configuration. There is no evidence of disc herniation or spinal canal stenosis. The neural foramina are patent bilaterally. C6-C7: The thecal sac has a normal configuration. There is no evidence of disc herniation or spinal canal stenosis. The neural foramina are patent bilaterally. C7-T1: No epidural impressions seen. CONCLUSION: 1. Unremarkable examination. Electronically signed by: Hugo Calabrese MD 10/17/2018 7:53 PM EST
[2018-10-17] MEDS: Potassium Chloride Inj 10 MEQ in Sodium Chloride 0.45 % Inj 1,000 ML IV.CONT SCH (20:24)
[2018-10-17] MEDS: Pantoprazole Sodium 20 MG DR Tablet PO SCH (20:24)
[2018-10-17] MEDS: Senna/Docusate Sodium 8.6/50 MG Tablet PO SCH (20:29)
[2018-10-17 23:04] LABS: Folate 16.2 ng/mL (3.1-17.5); Free T4 (Free Thyroxine) 0.81 ng/dL (0.76-1.46)
[2018-10-18 04:56] VITALS: RESP 16; TEMP 98.4
[2018-10-18] MEDS ORDERED: levETIRAcetam 500 MG Tablet PO SCH (08:00)
[2018-10-18] MEDS: Potassium Chloride Inj 10 MEQ in Sodium Chloride 0.45 % Inj 1,000 ML IV.CONT SCH (09:14)
[2018-10-18] MEDS: Pantoprazole Sodium 20 MG DR Tablet PO SCH (09:15)
[2018-10-18] MEDS: Senna/Docusate Sodium 8.6/50 MG Tablet PO SCH (09:15)
--- NOTE | 2018-10-18 09:33 | P.HPIM ---
History of Present Illness Primary Care Physician: Lisa Blue Chief Complaint: witnessed seizure History of Present Illness: This is a 48 year old female with a past medical history which includes seizure disorder and GERD who presented to the ED yesterday after a witnessed generalized seizure. The patient has a history of epilepsy since childhood, but was able to come off Keppra 4 years ago and had not had a seizure since until recently. She recently had a hemorrhoidectomy with subsequent UTI and surgical site infection, and has had 3 seizures since the infection began, 2 last week and 1 today. Today she was at work when she had a metallic taste in her mouth, vomited several hours later, and then subsequently had a seizure. Her coworkers described the seizure to EMS as tonic clonic but they were unsure how long it lasted. She states that normally she is only postictal for about 60 seconds but today she was confused and disoriented for several minutes before she realized what happened. Patient denies SOB, cough, chest pain, palpitations, numbness or tingling in the extremities or weakness. She was a former cigarette smoker having quit 1 year ago after smoking 1 pack per week, but began smoking 1 cigarette per day two days ago. Reports rare ETOH use and denies illicit drug use and takes no medications other than omeprazole 20mg BID. Past Medical History Seizure disorder, GERD Past Surgical History Hysterectomy. Tonsillectomy. Family History She has a brother that had a stent in his late 40s. Her mother had an NC in her early 50s. Social History Smokes approximately 1 cigarette per day for about 25 years. Has a rare beer. Denies illicit drugs. She works in housekeeping. Medications and Allergies Allergies Allergy/AdvReac Type Severity Reaction Status Date / Time gabapentin Allergy Severe HIVES, Verified 10/17/18 15:03 dystonic reaction haloperidol Allergy Severe Hives Verified 10/17/18 15:03 olanzapine Allergy Severe SOB Verified 10/17/18 15:03 penicillin G Allergy Severe Anaphylaxis Verified 10/17/18 15:03 sertraline Allergy Severe SOB Verified 10/17/18 15:03 aripiprazole Allergy Intermediate SOB Verified 10/17/18 15:03 citalopram Allergy Intermediate SOB Verified 10/17/18 15:03 venlafaxine Allergy Unknown SOB Verified 10/17/18 15:03 Home Medications Medication Instructions Recorded Confirmed Type omeprazole 20 mg PO BID 06/03/18 10/17/18 History Active Medications: Active Medications Acetaminophen (Tylenol) 650 mg PO Q4H PRN PRN Reason: Temp > 100.4 Al Hydroxide/Mg Hydroxide (Milk Of Altaf Nicolas) 30 ml PO Q12H PRN PRN Reason: Mild Constipation Potassium Chloride 10 meq/ (Sodium Chloride) 1,005 mls @ 84 mls/hr IV.CONT .[id number] [facility] Stop: 10/18/18 18:55 Last Admin: 10/18/18 09:14 Dose: 84 mls/hr Levetiracetam (Keppra) 500 mg PO Q12H [facility] Last Admin: 10/18/18 09:15 Dose: 500 mg Lorazepam (Ativan Inj) 1 mg IV.PUSH Q2H PRN PRN Reason: SEIZURES Ondansetron HCl (Zofran Inj) 4 mg IV.PUSH Q6H PRN PRN Reason: NAUSEA OR VOMITING Pantoprazole Sodium (Protonix) 20 mg PO BID [facility] Last Admin: 10/18/18 09:15 Dose: 20 mg Senna/Docusate Sodium (Jenny-Colace) 1 tab PO BID [facility] Last Admin: 10/18/18 09:15 Dose: 1 tab Sodium Chloride (Ns Flush) 2 ml IV.FLUSH BID [facility] Last Admin: 10/18/18 08:40 Dose: Not Given Sodium Chloride (Ns Flush) 2 ml IV.FLUSH PRN PRN PRN Reason: FLUSH AFTER USING IV ACCESS Physical Exam Vital signs: Last Vital Signs Temp 98.4 F 10/18/18 08:00 Pulse 60 10/18/18 08:00 Resp 16 10/18/18 08:00 BP 120/66 10/18/18 08:00 Pulse Ox 98 10/18/18 08:00 Narrative: GENERAL: This is a well-nourished, well-developed patient, in no apparent distress. CARDIOVASCULAR: Regular rate and rhythm without murmurs, gallops, or rubs. RESPIRATORY: Clear to auscultation. Breath sounds equal bilaterally. No wheezes , rales, or rhonchi. GASTROINTESTINAL: Abdomen soft, non-tender, nondistended. Normal active bowel sounds MUSCULOSKELETAL: Extremities without clubbing, cyanosis, or edema. NEURO: Alert & Oriented x4 to person, place, time, situation. Moves all ext x4 Results Labs CBC & Chem 7: 10/17/18 15:30 10/17/18 15:30 Caprini VTE Risk Assessment Caprini VTE Risk Assessment: No/Low Risk (score <= 1) Caprini Risk Assessment Model: Point Value = 1 Point Value = 2 Point Value = 3 Point Value = 5 Age 41-60 Minor surgery BMI > 25 kg/m2 Swollen legs Varicose veins or History of unexplained or recurrent spontaneous Oral contraceptives or hormone replacement Sepsis (< 1 month) Serious lung disease, including pneumonia (< 1 month) Abnormal pulmonary function Acute myocardial infarction Congestive heart failure (< 1 month) History of inflammatory bowel disease Medical patient at bed rest Age 61-74 Arthroscopic surgery Major open surgery (> 45 min) Laparoscopic surgery (> 45 min) Malignancy Confined to bed (> 72 hours) Immobilizing plaster cast Central venous access Age >= 75 History of VTE Family history of VTE Factor V Leiden Prothrombin [id number] Lupus anticoagulant Anticardiolipin antibodies Elevated serum homocysteine Heparin-induced thrombocytopenia Other congenital or acquired thrombophilia Stroke (< 1 month) Elective arthroplasty Hip, pelvis, or leg fracture Acute spinal cord injury (< 1 month) Prophylaxis Regimen: Total Risk Factor Score Risk Level Prophylaxis Regimen 0-1 Low Early ambulation 2 Moderate Order ONE of the following: *Sequential Compression Device (SCD) *Heparin 5000 units SQ BID 3-4 Higher Order ONE of the following medications: *Heparin 5000 units SQ TID *Enoxaparin/Lovenox 40 mg SQ daily (WT < 150 kg, CrCl > 30 mL/min) *Enoxaparin/Lovenox 30 mg SQ daily (WT < 150 kg, CrCl > 10-29 mL/min) *Enoxaparin/Lovenox 30 mg SQ BID (WT < 150 kg, CrCl > 30 mL/min) AND/OR *Sequential Compression Device (SCD) 5 or more Highest Order ONE of the following medications: *Heparin 5000 units SQ TID (Preferred with Epidurals) *Enoxaparin/Lovenox 40 mg SQ daily (WT < 150 kg, CrCl > 30 mL/min) *Enoxaparin/Lovenox 30 mg SQ daily (WT < 150 kg, CrCl > 10-29 mL/min) *Enoxaparin/Lovenox 30 mg SQ BID (WT < 150 kg, CrCl > 30 mL/min) AND *Sequential Compression Device (SCD) Assessment and Plan Plan This is a 48 year old female with a past medical history which includes seizure disorder and GERD who presented to the ED yesterday after a witnessed generalized seizure. The patient has a history of epilepsy since childhood, but was able to come off Keppra 4 years ago and had not had a seizure since until recently. She recently had a hemorrhoidectomy with subsequent UTI and surgical site infection, and has had 3 seizures since the infection began, 2 last week and 1 today. Today she was at work when she had a metallic taste in her mouth, vomited several hours later, and then subsequently had a seizure. Her coworkers described the seizure to EMS as tonic clonic but they were unsure how long it lasted. She states that normally she is only postictal for about 60 seconds but today she was confused and disoriented for several minutes before she realized what happened. Seizure disorder Patient has a history of epilepsy since childhood, but was able to come off Keppra 4 years ago and had not had a seizure since until recently. Patient has had three seizures in the past week Patient was given 1000mg IV Keprra in the ER started on Keppra 500 mg PO BID EEG ordered consult to neurology Seizure precautions serial neuro checks GERD Continue home Omeprazole DVT prophylaxis with SCDs Dr. Armstrong discussed the case with Dr. Kenyon. Neurology cleared to DC home after EEG completed. DC patient home in stable condition on a regular diet. No driving or operating heavy machinery given prescription for Keppra 500mg PO TID x 30days and meclizine 25 mg TID PRN vertigo/dizziness outpatient PT for BPPV eval and treat follow up with PCP and neurology H&P: Quality VTE Deep Vein Thrombosis/Pulmonary Embolism Present on Admission: No
[2018-10-18 12:02] VITALS: BP 121/72; PULSE 59; O2SAT 95
--- NOTE | 2018-10-18 12:41 | MB ---
cc: Lianna Kenyon MD DATE: 10/18/2018 REASON FOR CONSULTATION: Seizure. HISTORY OF PRESENT ILLNESS: The patient is a 48-year-old woman with a history of epilepsy since childhood, weaned herself off of Keppra 4 years ago. Her neurologist, I believe is Dr. Watkins. Recently she had a hemorrhoidectomy and developed some site infections as well as urinary tract infection, had 3 seizures, 2 last week and 1 the day of admission. She had an aura of a metallic taste some nausea, vomiting. She still has some lightheadedness, dizziness. I am asking PT to assess her for any vertigo. She was told not to wean herself off medication, but did despite that. She restarted smoking a couple of cigarettes a day over the last week. MEDICAL HISTORY: Basically seizures, epilepsy, bipolar, reflux, diabetes and heart disease, IBS. SOCIAL HISTORY: Current smoker, recently restarted. Alcohol: Denies. Drugs: Denies. LABORATORY DATA: Labs reviewed. TSH is abnormal, 8.330, free T4 is 0.81. B12 533. GFR 62. Urine is negative for infection. Tox screen negative, serology. RPR pending. White count 8.3, hemoglobin 11.5, platelets 253,000. MRI of the brain is unremarkable. C-spine MRI is unremarkable. Thoracic spine shows some protrusion T6-T7 with some flattening of the anterior cord, but no abnormal signal. Lumbar spine, some disk bulging L2-L3, L3-L4. IMPRESSION: Breakthrough seizures in a 48-year-old woman, possibly due to recent surgery, possibly due to urinary tract infection decreasing the threshold. She will go back on Keppra 500 mg twice a day. Fortunately, her MRI of the brain was unremarkable. I will have Physical Therapy get her out of bed to assess for any vertigo. May consider some meclizine or low-dose diazepam if needed. Continue hydration and if she is doing fine from my perspective, certainly she can go home. EEG is also ordered. Get that done and have her follow up outpatient laird with her neurologist. Apparently, she was loaded with a gram of Keppra in the ER. Continue current care and watch her for any breakthrough seizures. Use Ativan only if witnessed prolonged event. MD Cassandra Christianson , 10:43 AM , 10:49 AM
--- NOTE | 2018-10-19 11:14 | MG ---
cc: Lianna Kenyon MD EEG NUMBER: [id number] REFERRING PHYSICIAN: Rodrigo Armstrong MD CLINICAL HISTORY: Room G81 with hyperventilation and photic done. Good effort. Status post seizure. History of apparent epilepsy; was off of medicine for 4 years, back on [facility]. DESCRIPTION OF THE RECORD: Low amplitude but overall 8-9 Hz, 20 microvolt symmetrical. Some minor myogenic artifacts seen. Photic stimulation with a good driving response. Hyperventilation is performed, more artifact, but no evidence of any attenuation nor any epileptiform features. IMPRESSION: Overall normal appearing electroencephalogram on this one recording. Clinical correlation. MD DILIP Christianson/shayla , 07:37 AM , 07:41 AM
--- NOTE | 2018-10-23 16:21 | MH ---
cc: Jesús Arreaga MD, Michelle MD DATE OF ADMISSION: 10/17/2018 CHIEF COMPLAINT: Posterior rectal intersphincteric abscess. HISTORY OF PRESENT ILLNESS: This patient underwent a colonoscopy and a single quadrant hemorrhoidectomy by Dr. Saucedo on 10/02/2018. Right posterior single quadrant hemorrhoidectomy was done. Since that time, she developed urinary retention the following day and went to the emergency department where they placed a catheter and then took it out. On the following day, she went back with urinary retention, once again, along with anal pain and she had already been started on Cipro. They did a CT scan of her abdomen and pelvis at that time and that was all negative. The catheter was eventually removed and she was able to pass her urine and then about 2 weeks later ended up in the emergency department once again with a grand mal seizure. She has a known seizure disorder. She was in the hospital a couple of days and then eventually released from the hospital. CT scan of the brain was done at that time and was normal. Since that time, she felt a small amount of pain coming on in the last few days and over the last day, she got severe anal pain and a fever to 102 last night, which went down with Tylenol and then again today at noon. She has been n.p.o. of solid foods for 6 hours and n.p.o. of clear liquids for 2 hours. The patient says that the pain has gotten worse and I asked to see her in the office today. On exam in my office, she was found to have right posterior pain and on anoscopy, there was pus at the upper portion of her anal canal probably at the hemorrhoidectomy site, although the hemorrhoidectomy site appeared healed. The exam was limited due to pain. PAST MEDICAL HISTORY, FAMILY HISTORY, SOCIAL HISTORY, REVIEW OF SYSTEMS: Significant for the previous seizure disorder; however, she stopped her seizure medicines about 4 years ago and then developed a seizure about a week ago and was replaced back on her Keppra 250 mg p.o. b.i.d. along with her omeprazole. PHYSICAL EXAMINATION: GENERAL: Well-developed, well-nourished female, in acute distress with anal pain. SKIN: Warm and dry. HEENT: Extraocular muscles intact. NECK: Supple. ABDOMEN: Soft, nontender. No masses. CHEST: Clear. RECTAL: Inspection is within normal limits. Palpation posteriorly reveals pain. Gentle digital exam was done. It was quite painful for the patient. There is no deep postanal space swelling, but there is some pus coming from the anal canal on digital exam. Anoscopy was done gently and she has pus in the right posterior area at the upper portion of what would have been her hemorrhoidectomy site. IMPRESSION: Probable intersphincteric abscess or possible deep postanal space abscess. PLAN: Recommend exam under anesthesia and incision and drainage. I explained all the risks and benefits to her. She understands and wishes to proceed tonight. MD HORTENSIA Jacobs/jenny , 03:54 PM , 04:04 PM
== END 2018-10-18 15:14 | disposition home or self-care (01) ==
LOC: NEDA 14:50 → NEPE 14:50 → NEDA 19:28 → NEPGCP 20:17
PROVIDERS: ADMIT Hospitalist; ATTEND Hospitalist